=== PATIENT | male | born 1950 | race African-American/Black ===

== ENCOUNTER 2016-11-08 03:16 | Emergency (ER) | payer MEDICAID ==
[~2016-11-08] VITALS: Ht 180.3 cm; Wt 72.6 kg
[~2016-11-08 03:16] MED LIST: ACHD5005 PO; AGM875T PO; ALBU8.5H2 IH; ALPR.5T PO; ALPR1TAB7 PO; CEPH-507 PO; CHOL10003 PO; CYCL10TA9 PO; DOXY100T19 PO; GENT3.5O18 OU; HYDR-3714 PO; LISI5TAB PO; MULT1CAP27 PO; MUPI15CR11 TP; POLY119P PO; PRD20T PO; TRAM50TA2 PO; ZOLP10TA5 PO; [UNRECOGNIZED DRUG - CODE] PO
[2016-11-08 04:09] LABS: BASOPHILS # (AUTO) 0.1 10^3/uL (0.0-0.1); BASOPHILS % (AUTO) 1 % (0-10); EOSINOPHILS # (AUTO) 0.4 10^3/uL (0.0-0.3); EOSINOPHILS % (AUTO) 6 % (0-10); LYMPHOCYTES # (AUTO) 2.9 X 10^3 (1.0-4.0); LYMPHOCYTES % (AUTO) 47 % (12-44); MEAN CORPUSCULAR HEMOGLOBIN 34 PG (25-34); MEAN CORPUSCULAR HGB CONC 35 G/DL (32-36); MEAN CORPUSCULAR VOLUME 97 FL (80-99); MEAN PLATELET VOLUME 9.7 FL (7.4-10.4); MONOCYTES # (AUTO) 0.7 X 10^3 (0.0-1.0); MONOCYTES % (AUTO) 12 % (0-12); NEUTROPHILS # (AUTO) 2.1 X 10^3 (1.8-7.8); NEUTROPHILS % (AUTO) 35 % (42-75); PLATELET COUNT 171 10^3/uL (130-400); RED BLOOD COUNT 4.12 10^6/uL (4.35-5.85); RED CELL DISTRIBUTION WIDTH 13.3 % (10.0-14.5); WHITE BLOOD COUNT 6.2 10^3/uL (4.3-11.0)
[2016-11-08 04:33] LABS: ALANINE AMINOTRANSFERASE 156 U/L (0-55); ALBUMIN 3.5 G/DL (3.2-4.5); ANION GAP 10 MMOL/L (5-14); ASPARTATE AMINO TRANSFERASE 165 U/L (5-34); BLOOD UREA NITROGEN 11 MG/DL (7-18); BUN/CREATININE RATIO 12; CALCIUM 8.8 MG/DL (8.5-10.1); CARBON DIOXIDE 25 MMOL/L (21-32); CHLORIDE 107 MMOL/L (98-107); CREATININE SERUM 0.93 MG/DL (0.60-1.30); GFR ESTIMATED > 60; GLUCOSE 107 MG/DL (70-105); MAGNESIUM 2.2 MG/DL (1.8-2.4); POTASSIUM 3.1 MMOL/L (3.6-5.0); SODIUM 142 MMOL/L (135-145)
[2016-11-08 04:38] LABS: ALCOHOL < 10 MG/DL (<10)
[2016-11-08 05:06] LABS: KETONES,URINE NEGATIVE (NEGATIVE); LEUKOCYTE ESTERASE ,URINE 1+ (NEGATIVE); NITRITE,URINE NEGATIVE (NEGATIVE); PH,URINE 5 (5-9); PROTEIN,URINE 2+ (NEGATIVE); UROBILINOGEN,URINE 4 MG/DL (NORMAL)
[2016-11-08 05:16] LABS: BILIRUBIN,URINE 1+ (NEGATIVE)
[2016-11-08 05:17] LABS: WBC,URINE RARE /HPF
--- NOTE | 2016-11-08 05:32 | ED General ---
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, #9 ( Reported) Alprazolam 1 Mg Tablet, 1 TAB PO TID, #90 (Reported) Cholecalciferol 1,000 Unit Tablet, 1,000 UNIT PO DAILY, (Reported) Multivitamins 1 Each Capsule, 1 TAB PO DAILY, (Reported) Mupirocin Calcium 15 Gm Cream..g., 15 GM TP BID, #1 Prescribed by: HEBERT DYER on 10/09/15 1039 [place]/Paritap/Riton/Dasabuvir 1 Each Tab.ds.pk, 1 EACH PO UD, (Reported) Past Ylvvmak-Zgjbeg-Qljzyt Hx Patient Social History Alcohol Use: Denies Use Recreational Drug Use: No Smoking Status: Never a Smoker 2nd Hand Smoke Exposure: No Recent Foreign Travel: No Contact w/Someone Who Travel: No Recent Infectious Disease Expo: No Recent Hopitalizations: No Immunizations Up To Date Tetanus Booster (TDap): Unknown Seasonal Allergies Seasonal Allergies: No Surgeries HX Surgeries: Yes (cystoscopy) Surgeries: Abdominal Respiratory Hx Respiratory Disorders: Yes Respiratory Disorders: Asthma, Sleep Apnea, COPD Cardiovascular Hx Cardiac Disorders: Yes Cardiac Disorders: Hypertension Neurological Hx Neurological Disorders: Yes Neurological Disorders: Concussion, Seizure Disorder, Traumatic Brain Injury Reproductive System Hx Reproductive Disorders: No Sexually Transmitted Disease: No HIV/AIDS: No Genitourinary Hx Genitourinary Disorders: Yes (benign renal cyst) Genitourinary Disorders: Kidney Stones Gastrointestinal Hx Gastrointestinal Disorders: Yes (Hep C) Gastrointestinal Disorders: Hepatitis Musculoskeletal Hx Musculoskeletal Disorders: Yes (Injured back 1969) Musculoskeletal Disorders: Degenerate Disk Disease, Chronic Back Pain Endocrine Hx Endocrine Disorders: No HEENT HX ENT Disorders: No Cancer Hx Cancer: No Psychosocial Hx Psychiatric Problems: Yes Behavioral Health Disorders: Anxiety, PTSD, Depression Integumentary HX Skin/Integumentary Disorder: No Blood Transfusions Hx Blood Disorders: No Family Medical History Significant Family History: No Pertinent Family Hx Physical Exam Vital Signs Vital Sign - Last 12Hours 11/08/16 03:20 Temp 96.0 Pulse 92 Resp 18 B/P (MAP) 133/103 Pulse Ox 97 O2 Delivery Room Air Capillary Refill : Less Than 3 Seconds Progress/Results/Core Measures Results/Orders Lab Results Laboratory Tests Test 11/08/16 03:45 11/08/16 05:00 Range/Units White Blood Count 6.2 4.3-11.0 10^3/uL Red Blood Count 4.12 L 4.35-5.85 10^6/uL Hemoglobin 13.8 13.3-17.7 G/DL Hematocrit 40 40-54 % Mean Corpuscular Volume 97 80-99 FL Mean Corpuscular Hemoglobin 34 25-34 PG Mean Corpuscular Hemoglobin Concent 35 32-36 G/DL Red Cell Distribution Width 13.3 10.0-14.5 % Platelet Count 171 130-400 10^3/uL Mean Platelet Volume 9.7 7.4-10.4 FL Neutrophils (%) (Auto) 35 L 42-75 % Lymphocytes (%) (Auto) 47 H 12-44 % Monocytes (%) (Auto) 12 0-12 % Eosinophils (%) (Auto) 6 0-10 % Basophils (%) (Auto) 1 0-10 % Neutrophils # (Auto) 2.1 1.8-7.8 X 10^3 Lymphocytes # (Auto) 2.9 1.0-4.0 X 10^3 Monocytes # (Auto) 0.7 0.0-1.0 X 10^3 Eosinophils # (Auto) 0.4 H 0.0-0.3 10^3/uL Basophils # (Auto) 0.1 0.0-0.1 10^3/uL Sodium Level 142 135-145 MMOL/L Potassium Level 3.1 L 3.6-5.0 MMOL/L Chloride Level 107 98-107 MMOL/L Carbon Dioxide Level 25 21-32 MMOL/L Anion Gap 10 5-14 MMOL/L Blood Urea Nitrogen 11 7-18 MG/DL Creatinine 0.93 0.60-1.30 MG/DL Estimat Glomerular Filtration Rate > 60 BUN/Creatinine Ratio 12 Glucose Level 107 H 70-105 MG/DL Calcium Level 8.8 8.5-10.1 MG/DL Magnesium Level 2.2 1.8-2.4 MG/DL Total Bilirubin 1.0 0.1-1.0 MG/DL Aspartate Amino Transf (AST/SGOT) 165 H 5-34 U/L Alanine Aminotransferase (ALT/SGPT) 156 H 0-55 U/L Alkaline Phosphatase 148 H 40-136 U/L Total Protein 7.0 6.4-8.2 G/DL Albumin 3.5 3.2-4.5 G/DL TSH Hunt Testing 0.91 0.35-4.94 UIU/ML Serum Alcohol < 10 <10 MG/DL Urine Color YELLOW Urine Clarity CLEAR Urine pH 5 5-9 Urine Specific [place] 1.030 H 1.016-1.022 Urine Protein 2+ H NEGATIVE Urine Glucose (UA) NEGATIVE NEGATIVE Urine Ketones NEGATIVE NEGATIVE Urine Nitrite NEGATIVE NEGATIVE Urine Bilirubin 1+ H NEGATIVE Urine Urobilinogen 4 H NORMAL MG/DL Urine Leukocyte Esterase 1+ H NEGATIVE Urine RBC (Auto) 2+ H NEGATIVE Urine RBC 0-2 /HPF Urine WBC RARE /HPF Urine Squamous Epithelial Cells 2-5 /HPF Urine Crystals NONE /LPF Urine Bacteria NEGATIVE /HPF Urine Casts NONE /LPF Urine Mucus LARGE H /LPF Urine Culture Indicated NO Urine Opiates Screen NEGATIVE NEGATIVE Urine Oxycodone Screen NEGATIVE NEGATIVE Urine Methadone Screen NEGATIVE NEGATIVE Urine Propoxyphene Screen NEGATIVE NEGATIVE Urine Barbiturates Screen NEGATIVE NEGATIVE Ur Tricyclic Antidepressants Screen NEGATIVE NEGATIVE Urine Phencyclidine Screen NEGATIVE NEGATIVE Urine Amphetamines Screen POSITIVE H NEGATIVE Urine Methamphetamines Screen POSITIVE H NEGATIVE Urine Benzodiazepines Screen NEGATIVE NEGATIVE Urine Cocaine Screen NEGATIVE NEGATIVE Urine Cannabinoids Screen POSITIVE H NEGATIVE My Orders Orders - ANTOINE ZHANG DO Alcohol (11/08/16 03:33) Cbc With Automated Diff (11/08/16 03:33) Comprehensive Metabolic Panel (11/08/16 03:33) Drug Screen Stat (Urine) (11/08/16 03:33) Magnesium (11/08/16 03:33) Thyroid Analyzer (11/08/16 03:33) Ua Culture If Indicated (11/08/16 03:33) Vital Signs/I&O Vital Sign - Last 12Hours 11/08/16 03:20 Temp 96.0 Pulse 92 Resp 18 B/P (MAP) 133/103 Pulse Ox 97 O2 Delivery Room Air Blood Pressure Mean: 113 Departure Impression Impression: Primary Impression: Methamphetamine abuse Additional Impressions: Tactile hallucination Delusions of parasitosis Disposition: HOME, SELF-CARE Condition: Stable Departure-Patient Inst. Referrals: NO,LOCAL PHYSICIAN (PCP) Primary Care Physician TOÑA ZEPEDA Patient Instructions: Drug Abuse and Drug Addiction (DC), Polysubstance Abuse ( DC) Add. Discharge Instructions: FOLLOW UP WITH [facility] All discharge instructions reviewed with patient and/or family. Voiced understanding. ANTOINE ZHANG DO Nov 08, 2016 05:32
[2016-11-08 05:38] VITALS: BP 127/81
[2016-11-08] MEDS ORDERED: SODIUM BICARB 8.4% 50 MEQ/50 ML (ABBOTT) SYR IV ONE (05:45)
== END 2016-11-08 05:38 | disposition home or self-care (01) ==
LOC: EDUNIT# 03:16 → ER 03:18
DX: F15.151 Other stimulant abuse with stimulant-induced psychotic disorder with hallucinations (principal); F12.90 Cannabis use, unspecified, uncomplicated; B18.2 Chronic viral hepatitis C
CPT/HCPCS: 36415; 80053; 80306; 80320; 81000; 83735; 84443; 85025; 99283

== ENCOUNTER 2017-03-01 15:03 | Emergency (ER) | payer MEDICAID ==
[~2017-03-01] VITALS: Ht 180.3 cm; Wt 72.6 kg
--- OUTSIDE RECORDS SUMMARY | 2017-03-01 15:10 | XMS REPORT | Clinical Summary ---
Author Author [facility] Organization [facility] Address Unknown Phone Unavailable Care Team Providers Care Retail Gift Card Merchandising Name Role Phone PCP Unavailable Source Comments Some departments are not documenting in the electronic medical record. If you do not see the information that you expected, contact Release of Information in the Health Information Management department at [phone] for further assistance in locating additional records.[facility] Allergies Active Allergy Reactions Severity Noted Date Comments Sulfa (Sulfonamide RASH 10/17/2013 Antibiotics) Current Medications Not on file Active Problems Not on file Social History Tobacco Use Types Packs/Day Years Used Date Never Assessed Sex Assigned at Date Recorded Not on file Last Filed Vital Signs Vital Sign Reading Time Taken Blood Pressure 157/94 10/17/2013 5:01 AM CDT Pulse - - Temperature 36.8 C (98.2 F) 10/17/2013 5:01 AM CDT Respiratory Rate - - Oxygen Saturation 99% 10/17/2013 5:01 AM CDT Inhaled Oxygen - - Concentration Weight 74.8 kg (165 lb) 10/17/2013 5:01 AM CDT Height 177.8 cm (5' 10") 10/17/2013 5:01 AM CDT Body Mass Index 23.68 10/17/2013 5:01 AM CDT Plan of Treatment Health Maintenance Due Date Last Done Comments HEPATITIS C SCREENING 1951 PHYSICAL (COMPREHENSIVE) 1958 EXAM PERTUSSIS VACCINE 1962 TETANUS VACCINE 1968 COLORECTAL CANCER 2001 SCREENING SHINGLES VACCINE 2011 PREVNAR/PNEUMOVAX (#1) 2016 INFLUENZA VACCINE 03/09/2017 Results Not on filefrom Last 3 Months
--- NOTE | 2017-03-01 19:07 | ED Integumentary General ---
General Chief Complaint: Bite-Animal/Human/Insect Stated Complaint: SPIDER BITE Nursing Triage Note: PT CO OF POSSIBLE SPIDER BITE BEHIND R POSTERIOR THIGH. SMALL AREA THAT ITCHES AND SOMETIMES STINGS Source: patient Exam Limitations: no limitations History of Present Illness Time seen by provider: 19:07 Initial Comments 66-year-old male patient presents to the emergency department with complaints of a possible spider bite to the right posterior thigh. Patient does complain of itching and pain. Onset 3 days ago. This a.m. complains of scratchy throat. Timing/Duration: constant, other (3 day onset) Location: extremities (right posterior thigh) Possible Cause: other (possible spider right) Modifying Factors: worse with other (worse with scratching and palpation) Associated Symptoms: No blisters, No change in skin texture, No fever, No flushing, No headache, No hives, No malaise, No nasal congestion, No petechiae, No rash, swelling/mass/lumps Allergies and Home Medications Allergies Coded Allergies: acetaminophen (Unverified Adverse Reaction, Mild, GI BLEED, N/V, 10/14/10) Sulfa (Sulfonamide Antibiotics) (Unverified Adverse Reaction, Unknown, GI BLEED, N/V, 04/08/15) aspirin (Unverified Adverse Reaction, Unknown, GI BLEED, N/V, 04/08/15) Home Medications Alprazolam 1 Mg Tablet, 1 TAB PO TID, #90 (Reported) Minocycline HCl 100 Mg Capsule, 100 MG PO BID, #14 Ref 0 Prescribed by: DORA BO on 03/01/171921 Naproxen 500 Mg Tablet, 500 MG PO BID PRN for pain, #20 Ref 0 Prescribed by: DORA BO on 03/01/171921 Prednisone 20 Mg Tab, 40 MG PO DAILY, #6 Ref 0 Prescribed by: DORA BO on 03/01/171927 Constitutional: No chills, No fever, malaise EENTM: see HPI, other ("scratchy throat"), No ear pain, No mouth pain, No nose congestion, No throat swelling Respiratory: No cough, No short of breath, No stridor, No wheezing Cardiovascular: no symptoms reported Gastrointestinal: no symptoms reported Musculoskeletal: no symptoms reported Skin: see HPI Psychiatric/Neurological: No Symptoms Reported All Other Systems Reviewed Negative Unless Noted: Yes (Negative excepted noted.) Past Jvuntww-Cdfknp-Hbdqib Hx Patient Social History Alcohol Use: Denies Use Recreational Drug Use: No Smoking Status: Current Everyday Smoker Type Used: Cigarettes 2nd Hand Smoke Exposure: No Recent Foreign Travel: No Contact w/Someone Who Travel: No Recent Infectious Disease Expo: No Recent Hopitalizations: No Physical Abuse: No Sexual Abuse: No Immunizations Up To Date Tetanus Booster (TDap): Unknown Seasonal Allergies Seasonal Allergies: No Surgeries History of Surgeries: Yes (cystoscopy) Surgeries: Abdominal, Bladder Surgery Respiratory History of Respiratory Disorde: Yes Respiratory Disorders: Asthma, Sleep Apnea, COPD Cardiovascular History of Cardiac Disorders: Yes Cardiac Disorders: Hypertension Neurological History of Neurological Disord: Yes Neurological Disorders: Concussion, Seizure Disorder, Traumatic Brain Injury Reproductive System Hx Reproductive Disorders: No Sexually Transmitted Disease: No HIV/AIDS: No Genitourinary History of Genitourinary Disor: Yes Genitourinary Disorders: Kidney Stones Gastrointestinal History of Gastrointestinal Di: Yes (Hep C-NO TREATMENT) Gastrointestinal Disorders: Hepatitis Musculoskeletal History of Musculoskeletal Dis: Yes (Injured back 1968) Musculoskeletal Disorders: Degenerate Disk Disease, Chronic Back Pain Endocrine History of Endocrine Disorders: No HEENT History of HEENT Disorders: No Cancer History of Cancer: No Psychosocial History of Psychiatric Problem: Yes Behavioral Health Disorders: Anxiety, PTSD, Depression Suicide Risk Score: 0 Integumentary History of Skin or Integumenta: No Blood Transfusions History of Blood Disorders: No Reviewed Nursing Assessment Reviewed/Agree w Nursing PMH: Yes Family Medical History Significant Family History: No Pertinent Family Hx Physical Exam Vital Signs Vital Sign - Last 12Hours 03/01/17 03/01/17 18:40 19:55 Temp 97.5 Pulse 117 Resp 18 B/P (MAP) 160/100 Pulse Ox 99 O2 Delivery Room Air Capillary Refill : Less Than 3 Seconds General Appearance: WD/WN, no apparent distress HEENT: PERRL/EOMI, normal ENT inspection, TMs normal, pharyngeal erythema, No tonsillar exudate Neck: non-tender, full range of motion, supple, lymphadenopathy (R), lymphadenopathy (L) Cardiovascular: normal peripheral pulses, regular rate, rhythm, no edema, no murmur Respiratory: lungs clear, normal breath sounds, no respiratory distress, no accessory muscle use Gastrointestinal: normal bowel sounds, non tender, soft, no organomegaly Extremities: normal range of motion, no pedal edema, no calf tenderness, normal capillary refill, other (2 x 2 centimeter area of erythema with central puncture site. Tenderness palpation noted. No drainage, fluctuance, or induration noted.) Neurologic/Psychiatric: no motor/sensory deficits, alert, normal mood/affect, oriented x 3 Skin: normal color, warm/dry, other (2 x 2 centimeter area of erythema with central puncture site. Tenderness palpation noted. No drainage, fluctuance, or induration noted.) Progress/Results/Core Measures Results/Orders My Orders Orders - DORA BO Rx-Doxycycline Tablet (Rx-Vibramycin Tab (03/01/17 19:24) Prednisone Tablet (Deltasone Tablet) (03/01/17 19:30) Tramadol Tablet (Ultram Tablet) (03/01/17 19:30) Vital Signs/I&O Vital Sign - Last 12Hours 03/01/17 03/01/17 18:40 19:55 Temp 97.5 Pulse 117 112 Resp 18 14 B/P (MAP) 160/100 Pulse Ox 99 98 O2 Delivery Room Air Blood Pressure Mean: 120 Departure Communication (Admissions) Progress Notes Patient seen and evaluated. Plan for discharge to home with oral minocycline, prednisone, and naprosyn prescriptions. Impression Impression: Primary Impression: Spider bite wound Qualified Codes: T63.301A - Toxic effect of unspecified spider venom, accidental (unintentional), initial encounter Additional Impression: Acute viral pharyngitis Disposition: 01 HOME, SELF-CARE Condition: Improved Departure-Patient Inst. Decision time for Depature: 19:19 Referrals: NO,LOCAL PHYSICIAN (PCP/Family) Primary Care Physician Patient Instructions: Spider Bites, Viral Pharyngitis (DC) Add. Discharge Instructions: All discharge instructions reviewed with patient and/or family. Voiced understanding. Medications as instructed. Tylenol extra strength over-the- counter as directed for pain. Over the counter throat lozenges and sprays for throat pain. Gargle with warm salt water as needed for throat pain. Elevate the right lower extremity on pillows as needed. Shower with antibacterial soap. Follow-up with your family practitioner for recheck early this week. Return to the emergency department for worsened symptoms or any other concerns. Scripts Prednisone (Prednisone) 20 Mg Tab 40 MG PO DAILY, #6 TAB 0 Refills Prov: DORA BO 03/01/17 Naproxen (Naprosyn) 500 Mg Tablet 500 MG PO BID Y for pain, #20 TAB 0 Refills Prov: DORA BO 03/01/17 Minocycline HCl (Minocycline HCl) 100 Mg Capsule 100 MG PO BID, #14 CAP 0 Refills Prov: DORA BO 03/01/17 DORA BO Mar 01, 2017 19:07
[2017-03-01] MEDS ORDERED: MINO100C2 PO (19:22)
[2017-03-01] MEDS ORDERED: NAPR500T PO (19:22)
[2017-03-01] MEDS ORDERED: RX-DOXYCYCLINE 100 MG (VIBRAMYCIN) TAB PPK#2 PO STA (19:24)
[2017-03-01] MEDS ORDERED: PRD20T PO (19:28)
[2017-03-01] MEDS ORDERED: predniSONE 20 MG TAB PO ONE (19:30)
[2017-03-01 19:55] VITALS: BP 145/100
== END 2017-03-01 20:03 | disposition home or self-care (01) ==
LOC: EDUNIT# 15:03 → ER 15:05
DX: S71.101A Unspecified open wound, right thigh, initial encounter (principal); J02.9 Acute pharyngitis, unspecified; J44.9 Chronic obstructive pulmonary disease, unspecified; I10 Essential (primary) hypertension; G40.909 Epilepsy, unspecified, not intractable, without status epilepticus; G47.30 Sleep apnea, unspecified; B19.20 Unspecified viral hepatitis C without hepatic coma; F41.9 Anxiety disorder, unspecified; F32.9 Major depressive disorder, single episode, unspecified; F43.10 Post-traumatic stress disorder, unspecified; F17.210 Nicotine dependence, cigarettes, uncomplicated; Z87.820 Personal history of traumatic brain injury; Z87.442 Personal history of urinary calculi; W57.XXXA Bitten or stung by nonvenomous insect and other nonvenomous arthropods, initial encounter
CPT/HCPCS: 99283

== ENCOUNTER 2017-10-02 16:05 | Emergency (ER) | payer MEDICAID ==
[~2017-10-02] VITALS: Ht 180.3 cm; Wt 74.8 kg
[~2017-10-02 16:05] MED LIST changes: +AMOX-358 PO; +DOXY100T2 PO; +MINO100C2 PO; +NAPR-1071 PO
[2017-10-02 16:48] VITALS: BP 156/104
== END 2017-10-02 16:48 | disposition home or self-care (01) ==
LOC: EDUNIT# 16:05 → ER 16:05
DX: S91.302D Unspecified open wound, left foot, subsequent encounter (principal); S91.301D Unspecified open wound, right foot, subsequent encounter; X58.XXXD Exposure to other specified factors, subsequent encounter

== ENCOUNTER 2017-12-29 16:48 | Emergency (ER) | payer MEDICAID ==
[~2017-12-29] VITALS: Ht 177.8 cm; Wt 74.8 kg
--- OUTSIDE RECORDS SUMMARY | 2017-12-29 16:53 | XMS REPORT | Clinical Summary ---
Author Author [facility] Organization [facility] Address Unknown Phone Unavailable Care Team Providers Care Non Acoustic Operator Name Role Phone No Pcp, Na PCP Unavailable Source Comments Some departments are not documenting in the electronic medical record. If you do not see the information that you expected, contact Release of Information in the Health Information Management department at [phone] for further assistance in locating additional records.[facility] Allergies Active Allergy Reactions Severity Noted Date [...] VACCINE 1968 COLORECTAL CANCER 2001 SCREENING SHINGLES RECOMBINANT 2001 VACCINE (1 of 2) PNEUMONIA (PCV13/PPSV23) 2016 VACCINES (1 of 2 - PCV13) INFLUENZA VACCINE 03/09/2018 Results Not on filefrom Last 3 Months
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
[2017-12-29] MEDS ORDERED: ALPR0.254 PO (17:09)
[2017-12-29] MEDS ORDERED: PRD20T PO (17:10)
[2017-12-29] MEDS ORDERED: CYCL10TA9 PO (17:10)
[2017-12-29] MEDS ORDERED: TRAM50TA2 PO (17:10)
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
[2017-12-29 17:15] VITALS: BP 123/91
== END 2017-12-29 17:14 | disposition home or self-care (01) ==
LOC: EDUNIT# 16:48 → ER 16:49
DX: S16.1XXA Strain of muscle, fascia and tendon at neck level, initial encounter (principal); M70.71 Other bursitis of hip, right hip; M70.72 Other bursitis of hip, left hip; J44.9 Chronic obstructive pulmonary disease, unspecified; F41.9 Anxiety disorder, unspecified; F43.10 Post-traumatic stress disorder, unspecified; F32.9 Major depressive disorder, single episode, unspecified; G47.30 Sleep apnea, unspecified; I10 Essential (primary) hypertension; G40.909 Epilepsy, unspecified, not intractable, without status epilepticus; Z87.820 Personal history of traumatic brain injury; Z87.442 Personal history of urinary calculi; Z88.2 Allergy status to sulfonamides; Z88.6 Allergy status to analgesic agent; Z88.8 Allergy status to other drugs, medicaments and biological substances; Z77.22 Contact with and (suspected) exposure to environmental tobacco smoke (acute) (chronic); X58.XXXA Exposure to other specified factors, initial encounter
CPT/HCPCS: 99283

== ENCOUNTER 2018-10-14 18:34 | Emergency (ER) | payer MEDICAID ==
[~2018-10-14] VITALS: Ht 180.3 cm; Wt 72.6 kg
[~2018-10-14 18:34] MED LIST changes: +ALPR0.254 PO
[2018-10-14] MEDS ORDERED: LACTATED RINGERS 1,000 ML IV ONE (18:42)
[2018-10-14] MEDS ORDERED: KETOROLAC 30 MG/ML VIAL IVP STA (18:42)
[2018-10-14] MEDS ORDERED: ONDANSETRON 4 MG/2 ML (SDV) Z0FRAN IVP ONE (18:45)
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
[2018-10-14 19:26] LABS: BILIRUBIN,URINE NEGATIVE (NEGATIVE); CLARITY,URINE CLEAR; COLOR,URINE YELLOW; GLUCOSE, URINE (UA) NEGATIVE (NEGATIVE); KETONES,URINE NEGATIVE (NEGATIVE); LEUKOCYTE ESTERASE ,URINE 1+ (NEGATIVE); NITRITE,URINE NEGATIVE (NEGATIVE); PH,URINE 6 (5-9); PROTEIN,URINE NEGATIVE (NEGATIVE); UROBILINOGEN,URINE NORMAL (NORMAL)
--- NOTE | 2018-10-14 19:27 | Diagnostic Imaging Report ---
INDICATION: Right flank pain Supine and upright views of the abdomen and pelvis are obtained with single view of the chest. Lungs are clear, bilaterally. Heart size and pulmonary vascularity are within normal limits. There is moderate amount of stool throughout the right colon. This does limit evaluation of urinary tract calcification. No definite pathologic calcification is identified. IMPRESSION: Findings are compatible with constipation. Otherwise no acute abnormality is detected. Dictated by: Dictated on workstation # [id number]
[2018-10-14 19:34] LABS: BACTERIA,URINE NEGATIVE /HPF; RBC,URINE RARE /HPF; WBC,URINE 0-2 /HPF
[2018-10-14 19:41] LABS: AMPHETAMINE SCREEN, URINE NEGATIVE (NEGATIVE); BARBITURATE SCREEN URINE NEGATIVE (NEGATIVE); BENZODIAZEPINES SCREEN URINE NEGATIVE (NEGATIVE); CANNABINOID SCREEN, URINE POSITIVE (NEGATIVE); COCAINE SCREEN URINE NEGATIVE (NEGATIVE); METHADONE STAT NEGATIVE (NEGATIVE); METHAMPHETAMINE SCREEN URINE S NEGATIVE (NEGATIVE); OPIATE SCREEN URINE NEGATIVE (NEGATIVE); OXYCODONE STAT NEGATIVE (NEGATIVE); PROPOXYPHENE STAT NEGATIVE (NEGATIVE); TRICYCLIC ANTIDEPRESSANTS SCRE NEGATIVE (NEGATIVE)
--- NOTE | 2018-10-14 19:45 | Diagnostic Imaging Report ---
PROCEDURE: CT urinary tract, rule out kidney stone. TECHNIQUE: Multiple contiguous axial images were obtained through the abdomen and pelvis without the use of intravenous contrast. Auto Exposure Controls were utilized during the CT exam to meet ALARA standards for radiation dose reduction. INDICATION: Back pain and nausea Comparison is made to study of 11/10/2013. Unenhanced images of the liver, pancreas and spleen are unremarkable. Gallbladder is contracted. There is no evidence of adrenal gland abnormality. There is a persistent 2.5 cm cyst in the right kidney. Otherwise, there is no evidence of urinary tract calculus or obstruction. There is no evidence of appendiceal inflammation. There is mild aortoiliac atherosclerotic calcination. The bladder is thickwalled. There is also persistent enlargement of the prostate gland. Note is made of extensive disc bulging at the L4-5 level with associated degenerative facet arthropathy and grade 1 anterolisthesis. This is also associated with ligamentum flavum hypertrophy. There is large amount of stool in the right testis, resides in the right inguinal canal. IMPRESSION: No evidence of acute abnormality in the abdomen or pelvis although there is mural thickening in the bladder which could reflect cystitis. Correlation with urinalysis would be of value. There is also prostatic enlargement and clinical correlation would be of use. There is probable constipation and advanced degenerative disc and facet disease at the L4-5 level. MRI may be of value for assessment. Dictated by: Dictated on workstation # [id number]
[2018-10-14 19:58] LABS: BASOPHILS % (AUTO) 0 % (0-10); EOSINOPHILS # (AUTO) 0.2 10^3/uL (0.0-0.3); EOSINOPHILS % (AUTO) 3 % (0-10); HEMATOCRIT 46 % (40-54); HEMOGLOBIN 15.7 G/DL (13.3-17.7); LYMPHOCYTES # (AUTO) 2.3 X 10^3 (1.0-4.0); LYMPHOCYTES % (AUTO) 47 % (12-44); MEAN CORPUSCULAR HEMOGLOBIN 33 PG (25-34); MEAN CORPUSCULAR HGB CONC 34 G/DL (32-36); MEAN CORPUSCULAR VOLUME 97 FL (80-99); MEAN PLATELET VOLUME 10.1 FL (7.4-10.4); MONOCYTES # (AUTO) 0.7 X 10^3 (0.0-1.0); MONOCYTES % (AUTO) 14 % (0-12); NEUTROPHILS # (AUTO) 1.7 X 10^3 (1.8-7.8); NEUTROPHILS % (AUTO) 35 % (42-75); PLATELET COUNT 146 10^3/uL (130-400); RED CELL DISTRIBUTION WIDTH 14.3 % (10.0-14.5); WHITE BLOOD COUNT 4.8 10^3/uL (4.3-11.0)
[2018-10-14 20:17] LABS: ALANINE AMINOTRANSFERASE 49 U/L (0-55); ALBUMIN 3.5 GM/DL (3.2-4.5); ALKALINE PHOSPHATASE 219 U/L (40-136); AMYLASE 295 U/L (25-125); BILIRUBIN,TOTAL 1.2 MG/DL (0.1-1.0); BUN/CREATININE RATIO 12; CALCIUM 9.2 MG/DL (8.5-10.1); CARBON DIOXIDE 24 MMOL/L (21-32); CHLORIDE 104 MMOL/L (98-107); CREATININE SERUM 0.75 MG/DL (0.60-1.30); GFR ESTIMATED > 60; GLUCOSE 92 MG/DL (70-105); LIPASE 650 U/L (8-78); POTASSIUM 3.9 MMOL/L (3.6-5.0); SODIUM 137 MMOL/L (135-145); TOTAL PROTEIN 7.4 GM/DL (6.4-8.2)
[2018-10-14] MEDS ORDERED: ONDA4TAB11 PO (20:43)
[2018-10-14] MEDS ORDERED: METH4TAB PO (20:43)
[2018-10-14 21:15] VITALS: BP 146/100
== END 2018-10-14 21:15 | disposition home or self-care (01) ==
LOC: EDUNIT# 18:34 → ER 18:35
DX: K59.00 Constipation, unspecified (principal); F19.10 Other psychoactive substance abuse, uncomplicated; K85.90 Acute pancreatitis without necrosis or infection, unspecified; J44.9 Chronic obstructive pulmonary disease, unspecified; G47.30 Sleep apnea, unspecified; G40.909 Epilepsy, unspecified, not intractable, without status epilepticus; F41.9 Anxiety disorder, unspecified; F43.10 Post-traumatic stress disorder, unspecified; F32.9 Major depressive disorder, single episode, unspecified; F12.10 Cannabis abuse, uncomplicated; B19.20 Unspecified viral hepatitis C without hepatic coma; I10 Essential (primary) hypertension; F17.210 Nicotine dependence, cigarettes, uncomplicated; F15.10 Other stimulant abuse, uncomplicated; Z98.890 Other specified postprocedural states; Z91.14 Patient's other noncompliance with medication regimen; Z87.442 Personal history of urinary calculi; Z87.820 Personal history of traumatic brain injury; Z88.2 Allergy status to sulfonamides; Z88.6 Allergy status to analgesic agent; Z88.8 Allergy status to other drugs, medicaments and biological substances; Z79.52 Long term (current) use of systemic steroids
CPT/HCPCS: 36415; 74022; 74176; 80053; 80306; 80320; 81000; 82150; 83690; 85025; 93041; 96361; 96374; 96375

== ENCOUNTER 2019-05-04 17:46 | Emergency (ER) | payer OTHER, MEDICAID ==
[~2019-05-04] VITALS: Ht 180.4 cm; Wt 74.1 kg
[~2019-05-04 17:46] MED LIST changes: +METH4TAB PO; +ONDA4TAB11 PO
--- NOTE | 2019-05-04 18:47 | ED Abdominal Pain ---
General Chief Complaint: Abdominal/GI Problems Stated Complaint: GASTRO ISSUE Nursing Triage Note: Pt amb to triage with c/o possible bowel obstruction. Pt reports to have been sent [place] [facility] for further evaluation d/t abd imaging findings. Pt reports medial abd discomfort associated with nausea that began on this day. Denies fever or chills. Sepsis Screen: No Definite Risk Source of Information: Patient Exam Limitations: No Limitations History of Present Illness Date Seen by Provider: May 04, 2019 Time Seen by Provider: 18:30 Initial Comments 69-year-old male, presents to emergency department after he was evaluated at urgent care, patient reports that he went to the urgent care for concerns of his right second finger hurting since February 2019. Patient reports that while he was there he mentioned to the provider that during his last physical with the [place] [facility] he did not obtain his yearly chest x-ray, so they did obtain a chest x- ray while he was there. The patient was told that they had concerns of a bowel obstruction from his chest x-ray therefore they got some more imaging and obtained an acute abdominal series. Patient was subsequently sent here for concerns for possible bowel obstruction. Patient reports having a bowel movement this morning was having no nausea or vomiting, nontender, and passing flatus today. Timing/Duration: 1/2 Hour Severity/Quality: Mild Location: Generalized Abdomen Radiation: No Radiation Activities at Onset: None Associated Symptoms: Denies Symptoms Allergies and Home Medications Allergies Coded Allergies: acetaminophen (Unverified Adverse Reaction, Mild, GI BLEED, N/V, 10/14/10) Sulfa (Sulfonamide Antibiotics) (Unverified Adverse Reaction, Unknown, GI BLEED, N/V, 04/08/15) aspirin (Unverified Adverse Reaction, Unknown, GI BLEED, N/V, 04/08/15) Home Medications Cyclobenzaprine HCl 10 Mg Tablet, 10 MG PO Q8H PRN for SPASMS Prescribed by: JULIO JOHNSON on 12/29/171709 Methylprednisolone 4 Mg Tab.ds.pk, 4 MG PO UD Prescribed by: ANTOINE ZHANG on 10/14/182042 Ondansetron 4 Mg Tab.rapdis, 4 MG PO Q4H Prescribed by: ANTOINE ZHANG on 10/14/182042 Prednisone 20 Mg Tab, 40 MG PO DAILY Prescribed by: JULIO JOHNSON on 12/29/171709 Tramadol HCl 50 Mg Tablet, 50 MG PO Q6H PRN for PAIN Prescribed by: JULIO JOHNSON on 12/29/171709 Patient Home Medication List Home Medication List Reviewed: Yes Review of Systems Review of Systems Constitutional: no symptoms reported, see HPI EENTM: No Symptoms Reported, See HPI Respiratory: No Symptoms Reported, See HPI Cardiovascular: No Symptoms Reported, See HPI Gastrointestinal: No Symptoms Reported, See HPI Genitourinary: No Symptoms Reported, See HPI Musculoskeletal: no symptoms reported, see HPI Skin: no symptoms reported, see HPI Psychiatric/Neurological: No Symptoms Reported, See HPI Endocrine: No Symptoms Reported, See HPI Hematologic/Lymphatic: No Symptoms Reported, See HPI All Other Systems Reviewed Negative Unless Noted: Yes Past Gppxccb-Cilsbh-Mbpids Hx Past Med/Social Hx: Reviewed Nursing Past Med/Soc Hx Patient Social History Alcohol Use: Denies Use Recreational Drug Use: No Drug of Choice: PT DENIES, BUT HAS TESTED + FOR THC AND METH/AMPHETAMINES Smoking Status: Current Everyday Smoker Type Used: Cigarettes 2nd Hand Smoke Exposure: Yes Recent Foreign Travel: No Contact w/Someone Who Travel: No Recent Infectious Disease Expo: No Recent Hopitalizations: No Immunizations Up To Date Tetanus Booster (TDap): Unknown Seasonal Allergies Seasonal Allergies: No Past Medical History Surgeries: Yes (CYSTOSCOPY) Abdominal, Bladder Surgery Respiratory: Yes Asthma, Sleep Apnea, COPD Currently Using CPAP: Yes Cardiac: Yes (NON-COMPLIANT WITH MEDICATIONS) Hypertension Neurological: Yes (PT UNABLE TO GIVE DETAILS ABOUT SEIZURES) Concussion, Seizure Disorder, Traumatic Brain Injury Reproductive Disorders: Yes (E.D.) Sexually Transmitted Disease: No HIV/AIDS: No Genitourinary: Yes (E.D.) Kidney Stones Gastrointestinal: Yes (HEPATITIS C-NO TREATMENT, Bowel obstruction. ) Hepatitis Musculoskeletal: Yes (Injured back 1968) Degenerate Disk Disease, Chronic Back Pain Endocrine: No HEENT: No Cancer: No Psychosocial: Yes (POLYSUBSTANCE ABUSE) Anxiety, PTSD, Depression Integumentary: No Blood Disorders: No Family Medical History No Pertinent Family Hx Physical Exam Vital Signs Vital Signs - First Documented 05/04/19 17:52 Temp 37.0 Pulse 95 Resp 17 B/P (MAP) 129/83 (98) Pulse Ox 96 O2 Delivery Room Air Capillary Refill : Less Than 3 Seconds Height/Weight/BMI Height: 5'11.00" Weight: 160lbs. 0.0oz. 72.868754ir; 22.00 BMI Method:Stated General Appearance: WD/WN, no apparent distress HEENT: PERRL/EOMI, normal ENT inspection, TMs normal, pharynx normal Neck: non-tender, full range of motion, supple, normal inspection Respiratory: chest non-tender, lungs clear, normal breath sounds, no respiratory distress, no accessory muscle use Cardiovascular: normal peripheral pulses, regular rate, rhythm, no edema, no gallop, no JVD Gastrointestinal: normal bowel sounds (Present in all 4 quad. 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 Reviewed: Reviewed by Me Diagonstic Imaging: Xray Plain Films/CT/US/NM/MRI: abdomen Comments Acute abdominal series was obtained by [facility] reviewed by me no acute processes identified. Reviewed: Reviewed by Me Departure Impression Primary Impression: General medical exam Disposition: HOME, SELF-CARE Condition: Stable Departure-Patient Inst. Decision time for Depature: 18:45 Referrals: NO,LOCAL PHYSICIAN (PCP) Primary Care Physician LADONNA LEES (Family) Primary Care Physician Patient Instructions: No Instuctions Given Add. Discharge Instructions: Routine normal daily activities. All discharge instructions reviewed with patient and/or family. Voiced understanding. IVANA BERGER May 04, 2019 18:47 POS
[2019-05-04 18:57] VITALS: BP 145/90
== END 2019-05-04 18:57 | disposition home or self-care (01) ==
LOC: EDUNIT# 17:46 → ER 17:48
DX: Z03.89 Encounter for observation for other suspected diseases and conditions ruled out (principal); J44.9 Chronic obstructive pulmonary disease, unspecified; I10 Essential (primary) hypertension; G40.909 Epilepsy, unspecified, not intractable, without status epilepticus; F90.9 Attention-deficit hyperactivity disorder, unspecified type; F41.9 Anxiety disorder, unspecified; F32.9 Major depressive disorder, single episode, unspecified; B19.20 Unspecified viral hepatitis C without hepatic coma; F17.210 Nicotine dependence, cigarettes, uncomplicated; Z87.442 Personal history of urinary calculi; Z87.820 Personal history of traumatic brain injury; Z88.6 Allergy status to analgesic agent; Z88.2 Allergy status to sulfonamides; Z79.52 Long term (current) use of systemic steroids
CPT/HCPCS: 99282

== ENCOUNTER 2019-05-11 15:20 | Emergency (ER) | payer MEDICAID, OTHER ==
[~2019-05-11] VITALS: Ht 180 cm; Wt 74.0 kg
[~2019-05-11 15:20] MED LIST changes: -DOXY100T19 PO; +DOXY100T31 PO; -MINO100C2 PO; +MINO100C5 PO; +TRM50T PO
--- NOTE | 2019-05-11 15:57 | ED Integumentary General ---
General Chief Complaint: Skin/Wound Problems Stated Complaint: SPIDER BITE Nursing Triage Note: PT TO FT1, PT STATES HAS POSSIBLE SPIDER BITE ON R FA STATES HAD GOTTEN YESTERDAY, PT HAS VERY SMALL WOUND TO R FA, NO FANG EL NOTED, PT DENIES SEEING SPIDER. AREA WITHOUT SX OF INFECTION. PT ARRIVED PER EMS, EMS STAFF STATE PT WALKED 1 BLOCK TO [facility] TO WAIT FOR EMS Source: patient Exam Limitations: no limitations History of Present Illness Date Seen by Provider: May 11, 2019 Time Seen by Provider: 15:45 Initial Comments Patient presents with concerns for a possible spider bite on right forearm. Reports that he noticed the area yesterday. Has a small abrasion in the area and he thought it might be from a spider. Patient denies any other symptoms. Patient is nodding off frequently Lyme titer visit with family reports that he feels fine that has gone doesn't want anything else done. Reports that he just had a busy couple days and he has very good news and is just kind of tired from being busy Allergies and Home Medications Allergies Coded Allergies: acetaminophen (Unverified Adverse Reaction, Mild, GI BLEED, N/V, 10/14/10) Sulfa (Sulfonamide Antibiotics) (Unverified Adverse Reaction, Unknown, GI BLEED, N/V, 04/08/15) aspirin (Unverified Adverse Reaction, Unknown, GI BLEED, N/V, 04/08/15) Home Medications Cyclobenzaprine HCl 10 Mg Tablet, 10 MG PO Q8H PRN for SPASMS Prescribed by: JULIO JOHNSON on 12/29/171709 Methylprednisolone 4 Mg Tab.ds.pk, 4 MG PO UD Prescribed by: ANTOINE ZHANG on 10/14/182042 Ondansetron 4 Mg Tab.rapdis, 4 MG PO Q4H Prescribed by: ANTOINE ZHANG on 10/14/182042 Prednisone 20 Mg Tab, 40 MG PO DAILY Prescribed by: JULIO JOHNSON on 12/29/171709 Tramadol HCl 50 Mg Tablet, 50 MG PO Q6H PRN for PAIN Prescribed by: JULIO JOHNSON on 12/29/171709 Patient Home Medication List Home Medication List Reviewed: Yes Review of Systems Review of Systems Constitutional: No chills, No fever Respiratory: no symptoms reported Cardiovascular: no symptoms reported Gastrointestinal: no symptoms reported Musculoskeletal: no symptoms reported Skin: see HPI Past Vqquzgn-Ynuxom-Rolyfq Hx Past Med/Social Hx: Reviewed Nursing Past Med/Soc Hx Patient Social History Alcohol Use: Denies Use Recreational Drug Use: No Drug of Choice: PT DENIES, BUT HAS TESTED + FOR THC AND METH/AMPHETAMINES Smoking Status: Current Everyday Smoker Type Used: Cigarettes 2nd Hand Smoke Exposure: Yes Recent Foreign Travel: No Contact w/Someone Who Travel: No Recent Infectious Disease Expo: No Recent Hopitalizations: No Physical Abuse: No Sexual Abuse: No Immunizations Up To Date Tetanus Booster (TDap): Less than 5yrs Seasonal Allergies Seasonal Allergies: No Past Medical History Surgeries: Yes (CYSTOSCOPY) Abdominal, Bladder Surgery Respiratory: Yes Asthma, Sleep Apnea, COPD Currently Using CPAP: Yes Cardiac: Yes (NON-COMPLIANT WITH MEDICATIONS) Hypertension Neurological: Yes (PT UNABLE TO GIVE DETAILS ABOUT SEIZURES) Concussion, Seizure Disorder, Traumatic Brain Injury Reproductive Disorders: Yes (E.D.) Sexually Transmitted Disease: No HIV/AIDS: No Genitourinary: Yes (E.D.) Kidney Stones Gastrointestinal: Yes (HEPATITIS C-NO TREATMENT, Bowel obstruction. ) Hepatitis Musculoskeletal: Yes (Injured back 1968) Degenerate Disk Disease, Chronic Back Pain Endocrine: No HEENT: No Cancer: No Psychosocial: Yes (POLYSUBSTANCE ABUSE) Anxiety, PTSD, Depression Integumentary: No Blood Disorders: No Family Medical History No Pertinent Family Hx Physical Exam Vital Signs Vital Signs - First Documented 05/11/19 15:22 Temp 39.8 Pulse 96 Resp 18 B/P (MAP) 140/89 (106) Pulse Ox 99 Capillary Refill : Less Than 3 Seconds General Appearance: no apparent distress, other (fatigued) HEENT: normal ENT inspection Neck: full range of motion Cardiovascular: normal peripheral pulses, regular rate, rhythm Respiratory: lungs clear, normal breath sounds Back: no CVA tenderness Extremities: non-tender Neurologic/Psychiatric: normal mood/affect, oriented x 3 Skin: other (very small abrasion on right forearm, no infection noted) Progress/Results/Core Measures Results/Orders Vital Signs/I&O 05/11/19 15:22 Temp 39.8 Pulse 96 Resp 18 B/P (MAP) 140/89 (106) Pulse Ox 99 Blood Pressure Mean: 106 POS Progress Progress Note : Time: 15:55 Progress Note Patient was very fatigued acting and fell asleep I was talking to him. I repeatedly asked him if there was any thing else going on that he wanted evaluated besides the right forearm abrasion. He denied any further issues, repeatedly stated he feels fine just tired from a busy few days. Based on patient's not wanting any further evaluation, he will be discharged. Departure Impression Primary Impression: Abrasion of right forearm, initial encounter Disposition: HOME, SELF-CARE Condition: Stable Departure-Patient Inst. Referrals: NO,LOCAL PHYSICIAN (PCP) Primary Care Physician LADONNA LEES (Family) Primary Care Physician Patient Instructions: Skin Abrasions, Wound Care (DC) Add. Discharge Instructions: The Emergency Department focuses on treating and ruling out life-threatening diseases. Whenever possible, a diagnosis is given. However most patient's are given an impression based on the history, physical exam, and workup during their brief time in the ER. Information about probable diagnosis and other educational material has been provided. Please take the time to read and understand this information. It is very important that he follow up with a doctor as discussed during her visit today. Failure to adhere to your follow-up instructions may result in severe disability, injury or so please make sure to keep your appointments. Please keep in mind the emergency department is not designed to be your primary care or "family doctor" and not urgent issues are best evaluated by an outpatient physician All discharge instructions reviewed with patient and/or family. Voiced understanding. GABRIEL RIVAS DO May 11, 2019 15:57 POS
[2019-05-11 16:13] VITALS: BP 140/89
== END 2019-05-11 16:13 | disposition home or self-care (01) ==
LOC: EDUNIT# 15:20 → ER 15:21
DX: S50.811A Abrasion of right forearm, initial encounter (principal); J44.9 Chronic obstructive pulmonary disease, unspecified; I10 Essential (primary) hypertension; G47.30 Sleep apnea, unspecified; G40.909 Epilepsy, unspecified, not intractable, without status epilepticus; B19.20 Unspecified viral hepatitis C without hepatic coma; F32.9 Major depressive disorder, single episode, unspecified; F43.10 Post-traumatic stress disorder, unspecified; F41.9 Anxiety disorder, unspecified; F17.210 Nicotine dependence, cigarettes, uncomplicated; Z99.89 Dependence on other enabling machines and devices; Z87.442 Personal history of urinary calculi; Z87.820 Personal history of traumatic brain injury; Z88.6 Allergy status to analgesic agent; Z88.2 Allergy status to sulfonamides; Z79.52 Long term (current) use of systemic steroids; X58.XXXA Exposure to other specified factors, initial encounter
CPT/HCPCS: 99283

== ENCOUNTER 2019-06-01 20:01 | Emergency (ER) | payer MEDICAID ==
[~2019-06-01 20:01] MED LIST changes: +DOXY100T19 PO; -DOXY100T31 PO; +MINO100C2 PO; -MINO100C5 PO; -TRM50T PO
--- NOTE | 2019-06-01 20:16 | ED General ---
General Chief Complaint: General Problems/Pain Stated Complaint: CONFUSION Source of Information: Patient, EMS Exam Limitations: No Limitations History of Present Illness Date Seen by Provider: Jun 01, 2019 Time Seen by Provider: 20:11 Initial Comments to ER per EMS from room 421 at the [facility]. Two of his female visitors at the [facility] called EMS with reports that he had shallow breathing. Upon EMS arrival he was sitting up in bed alert but disoriented and believes that at that time he was at [facility]. The 2 female visitors stated to know him well to EMS allegedly, however they had communicated with [employer] mostly via text messaging and had only met him in person for 2 hours. Upon arrival to ER he is alert and oriented to person place and time, unsure why his friends at the hotel called EMS. He has no complaints of a like to sign out AGAINST MEDICAL ADVICE. Timing/Duration: 1/2 Hour Severity: Mild Associated Systoms: Denies Symptoms Allergies and Home Medications Allergies Coded Allergies: acetaminophen (Unverified Adverse Reaction, Mild, GI BLEED, N/V, 10/14/10) Sulfa (Sulfonamide Antibiotics) (Unverified Adverse Reaction, Unknown, GI BLEED, N/V, 04/08/15) aspirin (Unverified Adverse Reaction, Unknown, GI BLEED, N/V, 04/08/15) Home Medications Cyclobenzaprine HCl 10 Mg Tablet, 10 MG PO Q8H PRN for SPASMS Prescribed by: JULIO JOHNSON on 12/29/171709 Methylprednisolone 4 Mg Tab.ds.pk, 4 MG PO UD Prescribed by: ANTOINE ZHANG on 10/14/182042 Ondansetron 4 Mg Tab.rapdis, 4 MG PO Q4H Prescribed by: ANTOINE ZHANG on 10/14/182042 Prednisone 20 Mg Tab, 40 MG PO DAILY Prescribed by: JULIO JOHNSON on 12/29/171709 Tramadol HCl 50 Mg Tablet, 50 MG PO Q6H PRN for PAIN Prescribed by: JULIO JOHNSON on 12/29/171709 Patient Home Medication List Home Medication List Reviewed: Yes Review of Systems Review of Systems Constitutional: see HPI EENTM: see HPI Respiratory: no symptoms reported Cardiovascular: no symptoms reported Genitourinary: no symptoms reported Musculoskeletal: no symptoms reported Skin: no symptoms reported Psychiatric/Neurological: No Symptoms Reported Hematologic/Lymphatic: No Symptoms Reported Immunological/Allergic: no symptoms reported Past Ageanff-Xslrko-Qoeyit Hx Patient Social History Drug of Choice: PT DENIES, BUT HAS TESTED + FOR THC AND METH/AMPHETAMINES Type Used: Cigarettes 2nd Hand Smoke Exposure: Yes Recent Foreign Travel: No Contact w/Someone Who Travel: No Recent Hopitalizations: No Immunizations Up To Date Tetanus Booster (TDap): Less than 5yrs Seasonal Allergies Seasonal Allergies: No Past Medical History Surgeries: Yes (CYSTOSCOPY) Abdominal, Bladder Surgery Respiratory: Yes Asthma, Sleep Apnea, COPD Currently Using CPAP: Yes Cardiac: Yes (NON-COMPLIANT WITH MEDICATIONS) Hypertension Neurological: Yes (PT UNABLE TO GIVE DETAILS ABOUT SEIZURES) Concussion, Seizure Disorder, Traumatic Brain Injury Reproductive Disorders: Yes (E.D.) Sexually Transmitted Disease: No HIV/AIDS: No Genitourinary: Yes (E.D.) Kidney Stones Gastrointestinal: Yes (HEPATITIS C-NO TREATMENT, Bowel obstruction. ) Hepatitis Musculoskeletal: Yes (Injured back 1969) Degenerate Disk Disease, Chronic Back Pain Endocrine: No HEENT: No Cancer: No Psychosocial: Yes (POLYSUBSTANCE ABUSE) Anxiety, PTSD, Depression Integumentary: No Blood Disorders: No Family Medical History No Pertinent Family Hx Physical Exam Vital Signs Capillary Refill : Height, Weight, BMI Height: 5'11.00" Weight: 160lbs. 0.0oz. 72.141420hh; 22.00 BMI Method:Stated General Appearance: No Apparent Distress, WD/WN, Other (hostile toward staff, pulled out his IV and requests to leave. Again he is alert and oriented.) Eyes: Bilateral Eye Normal Inspection, Bilateral Eye PERRL, Bilateral Eye EOMI HEENT: PERRL/EOMI, TMs Normal Neck: Full Range of Motion, Normal Inspection Respiratory: Normal Breath Sounds, No Accessory Muscle Use, No Respiratory Distress Cardiovascular: Regular Rate, Rhythm, Normal Peripheral Pulses Gastrointestinal: Normal Bowel Sounds, Non Tender, Soft Extremity: Normal Capillary Refill, Normal Inspection Neurologic/Psychiatric: Alert, Oriented x3 Skin: Normal Color, Warm/Dry Progress/Results/Core Measures Suspected Sepsis SIRS Temperature: Pulse: Respiratory Rate: Blood Pressure / Mean: Results/Orders My Orders Orders - HEBERT DYER APRN Cbc With Automated Diff (06/01/19 20:09) Comprehensive Metabolic Panel (06/01/19 20:09) Ua Culture If Indicated (06/01/19 20:09) Drug Screen Stat (Urine) (06/01/19 20:09) Alcohol (06/01/19 20:09) Ed Iv/Invasive Line Start (06/01/19 20:09) Vital Signs/I&O Capillary Refill : Departure Impression Primary Impression: Left against medical advice Disposition: 07 AGAINST MEDICAL ADVICE Condition: Against Medical Advice Departure-Patient Inst. Referrals: NO,LOCAL PHYSICIAN (PCP) Primary Care Physician LADONNA LEES (Family) Primary Care Physician HEBERT DYER APRN Jun 01, 2019 20:16
[2019-06-01 20:23] LABS: BASOPHILS % (AUTO) 0 % (0-10); EOSINOPHILS # (AUTO) 0.1 10^3/uL (0.0-0.3); EOSINOPHILS % (AUTO) 1 % (0-10); HEMATOCRIT 38 % (40-54); HEMOGLOBIN 12.9 G/DL (13.3-17.7); LYMPHOCYTES # (AUTO) 2.1 X 10^3 (1.0-4.0); LYMPHOCYTES % (AUTO) 40 % (12-44); MEAN CORPUSCULAR HEMOGLOBIN 34 PG (25-34); MEAN CORPUSCULAR HGB CONC 34 G/DL (32-36); MEAN CORPUSCULAR VOLUME 100 FL (80-99); MEAN PLATELET VOLUME 10.1 FL (7.4-10.4); MONOCYTES # (AUTO) 0.7 X 10^3 (0.0-1.0); MONOCYTES % (AUTO) 14 % (0-12); NEUTROPHILS # (AUTO) 2.4 X 10^3 (1.8-7.8); NEUTROPHILS % (AUTO) 45 % (42-75); PLATELET COUNT 126 10^3/uL (130-400); RED CELL DISTRIBUTION WIDTH 13.9 % (10.0-14.5); WHITE BLOOD COUNT 5.3 10^3/uL (4.3-11.0)
[2019-06-01 20:34] LABS: ALANINE AMINOTRANSFERASE 85 U/L (0-55); ALBUMIN 3.4 GM/DL (3.2-4.5); ALKALINE PHOSPHATASE 152 U/L (40-136); BILIRUBIN,TOTAL 2.3 MG/DL (0.1-1.0); BUN/CREATININE RATIO 15; CALCIUM 8.5 MG/DL (8.5-10.1); CARBON DIOXIDE 23 MMOL/L (21-32); CHLORIDE 102 MMOL/L (98-107); CREATININE SERUM 0.89 MG/DL (0.60-1.30); GFR ESTIMATED > 60; GLUCOSE 97 MG/DL (70-105); POTASSIUM 3.5 MMOL/L (3.6-5.0); SODIUM 136 MMOL/L (135-145); TOTAL PROTEIN 6.7 GM/DL (6.4-8.2)
== END 2019-06-01 20:17 | disposition left against medical advice (07) ==
LOC: EDUNIT# 20:01 → ER 20:04
DX: R41.0 Disorientation, unspecified (principal); J44.9 Chronic obstructive pulmonary disease, unspecified; G47.30 Sleep apnea, unspecified; J45.909 Unspecified asthma, uncomplicated; I10 Essential (primary) hypertension; G40.909 Epilepsy, unspecified, not intractable, without status epilepticus; F41.9 Anxiety disorder, unspecified; F43.10 Post-traumatic stress disorder, unspecified; F32.9 Major depressive disorder, single episode, unspecified; Z87.442 Personal history of urinary calculi; Z88.5 Allergy status to narcotic agent; Z88.2 Allergy status to sulfonamides; Z88.6 Allergy status to analgesic agent; Z79.52 Long term (current) use of systemic steroids; Z77.22 Contact with and (suspected) exposure to environmental tobacco smoke (acute) (chronic)
CPT/HCPCS: 36415; 80053; 80320; 85025

== ENCOUNTER 2020-05-21 22:12 | Emergency (ER) | payer MEDICAID ==
[~2020-05-21] VITALS: Ht 180 cm; Wt 79.0 kg
[~2020-05-21 22:12] MED LIST changes: +ALPR.25T PO; -ALPR0.254 PO; -DOXY100T19 PO; +DOXY100T31 PO; -MINO100C2 PO; +MINO100C5 PO; +TRM50T PO
[2020-05-21] MEDS ORDERED: MUPI22OI2 TP (22:36)
[2020-05-21] MEDS ORDERED: MOME45CR3 TP (22:36)
[2020-05-21] MEDS ORDERED: HYDR50CA3 PO (22:36)
--- NOTE | 2020-05-21 22:37 | ED Integumentary General ---
General Chief Complaint: Bite-Animal/Human/Insect Stated Complaint: BUGBITE Nursing Triage Note: Patient presented to the ER via EMS with complaints of bug bites on his back that are painful. He states the bugs have been laying eggs under his skin and that they are not getting better. Source: patient Allergies and Home Medications Allergies Coded Allergies: acetaminophen (Unverified Adverse Reaction, Mild, GI BLEED, N/V, 10/14/10) Sulfa (Sulfonamide Antibiotics) (Unverified Adverse Reaction, Unknown, GI BLEED, N/V, 04/08/15) aspirin (Unverified Adverse Reaction, Unknown, GI BLEED, N/V, 04/08/15) Home Medications Cyclobenzaprine HCl 10 Mg Tablet, 10 MG PO Q8H PRN for SPASMS Prescribed by: JULIO JOHNSON on 12/29/171709 Methylprednisolone 4 Mg Tab.ds.pk, 4 MG PO UD Prescribed by: ANTOINE ZHANG on 10/14/182042 Ondansetron 4 Mg Tab.rapdis, 4 MG PO Q4H Prescribed by: ANTOINE ZHANG on 10/14/182042 Prednisone 20 Mg Tab, 40 MG PO DAILY Prescribed by: JULIO JOHNSON on 12/29/171709 Tramadol HCl 50 Mg Tablet, 50 MG PO Q6H PRN for PAIN Prescribed by: JULIO JOHNSON on 12/29/171709 Past Rsugcvj-Luafhi-Kzypdt Hx Patient Social History Alcohol Use: Denies Use Recreational Drug Use: No Drug of Choice: PT DENIES, BUT HAS TESTED + FOR THC AND METH/AMPHETAMINES Smoking Status: Current Everyday Smoker Type Used: Cigarettes 2nd Hand Smoke Exposure: Yes Recent Foreign Travel: No Contact w/Someone Who Travel: No Recent Infectious Disease Expo: No Recent Hopitalizations: No Immunizations Up To Date Tetanus Booster (TDap): Less than 5yrs Seasonal Allergies Seasonal Allergies: No Past Medical History Surgeries: Yes (CYSTOSCOPY) Abdominal, Bladder Surgery Respiratory: Yes Asthma, Sleep Apnea, COPD Currently Using CPAP: Yes Cardiac: Yes (NON-COMPLIANT WITH MEDICATIONS) Hypertension Neurological: Yes (PT UNABLE TO GIVE DETAILS ABOUT SEIZURES) Concussion, Seizure Disorder, Traumatic Brain Injury Reproductive Disorders: Yes (E.D.) Sexually Transmitted Disease: No HIV/AIDS: No Genitourinary: Yes (E.D.) Kidney Stones Gastrointestinal: Yes (HEPATITIS C-NO TREATMENT, Bowel obstruction. ) Hepatitis Musculoskeletal: Yes (Injured back 1969) Degenerate Disk Disease, Chronic Back Pain Endocrine: No HEENT: No Cancer: No Psychosocial: Yes (POLYSUBSTANCE ABUSE) Anxiety, PTSD, Depression Integumentary: No Blood Disorders: No Family Medical History No Pertinent Family Hx Physical Exam Vital Signs Vital Signs - First Documented Capillary Refill : Less Than 3 Seconds Progress/Results/Core Measures Results/Orders Vital Signs/I&O 05/21/20 22:13 B/P (MAP) Departure Impression Primary Impression: MULTIPLE SORES ON TRUNK Disposition: HOME, SELF-CARE Condition: Stable Departure-Patient Inst. Referrals: NO,LOCAL PHYSICIAN (PCP) Primary Care Physician LADONNA LEES (Family) Primary Care Physician Patient Instructions: Itchy Skin, Skin Rash (DC) Add. Discharge Instructions: DO NOT USE ALCOHOL OR PEROXIDE ON SORES OR SKIN USE ANTIBACTERIAL SOAP AND WATER TO AREAS TWICE A DAY AND RINSE WELL WITH WATER APPLY ANTIBIOTIC OINTMENT AND ANTI-ITCH CREAM TWICE A DAY TO SORES FOLLOW UP WITH YOUR DR IN 5-7 DAYS FOR FURTHER CARE--CALL IN AM TO MAKE AN APPOINTMENT All discharge instructions reviewed with patient and/or family. Voiced understanding. Scripts Mupirocin (Mupirocin) 22 Gm Oint...g. 22 GM TP BID, #1 TUBE Prov: ANTOINE ZHANG DO 05/21/20 Mometasone Furoate (Mometasone Furoate) 45 Gm Cream..g. 45 GM TP TID, #1 TUBE Prov: ANTOINE ZHANG DO 05/21/20 Hydroxyzine Pamoate (Hydroxyzine Pamoate) 50 Mg Capsule 50 MG PO Q6H PRN for ITCHING, #15 CAP Prov: ANTOINE ZHANG DO 05/21/20 ANTOINE ZHANG DO May 21, 2020 22:37
[2020-05-21 22:56] VITALS: BP 142/82
== END 2020-05-21 22:57 | disposition home or self-care (01) ==
LOC: EDUNIT# 22:12 → ER 22:13
DX: L98.8 Other specified disorders of the skin and subcutaneous tissue (principal); J44.9 Chronic obstructive pulmonary disease, unspecified; F17.210 Nicotine dependence, cigarettes, uncomplicated; Z88.2 Allergy status to sulfonamides; Z88.6 Allergy status to analgesic agent; Z88.8 Allergy status to other drugs, medicaments and biological substances; Z87.820 Personal history of traumatic brain injury; Z79.52 Long term (current) use of systemic steroids
CPT/HCPCS: 99283

== ENCOUNTER 2020-11-03 03:50 | Emergency (ER) | payer MEDICAID ==
[~2020-11-03] VITALS: Ht 180 cm; Wt 79.0 kg
[~2020-11-03 03:50] MED LIST changes: +HYDR50CA3 PO; +MOME45CR3 TP; +MUPI22OI2 TP
[2020-11-03 03:55] VITALS: BP 176/95
--- NOTE | 2020-11-03 04:23 | ED Lower Extremity ---
General Chief Complaint: Lower Extremity Stated Complaint: HEEL PAIN Nursing Triage Note: BROUGHT IN BY [facility] FOR RIGHT HEEL PAIN X2 DAYS AFTER STOMPING ON CONCRETE. REPORTS UNABLE TO BEAR WEIGHT ON RIGHT HEEL. Nursing Sepsis Screen: No Definite Risk Source: patient, EMS History of Present Illness Date Seen by Provider: November 03, 2020 Time Seen by Provider: 03:57 Initial Comments PT ARRIVES VIA EMS FROM HOME C/O RIGHT HEEL PAIN STATES AROUND 1600 ON Friday11/01/20, HE STOMPED ON CONCRETE AND HAS BEEN HAVING PAIN IN RIGHT HEEL SINCE THEN STATES HE CANNOT BEAR WEIGHT ON IT NO PARESTHESIAS OR MOTOR DEFICITS NO PRIOR INJURY TO THIS FOOT/HEEL HAS NOT TAKEN ANYTHING FOR PAIN AT ANY TIME HAS NOT SOUGHT CARE UNTIL [place] WAS AT [facility] YESTERDAY FOR CHRONIC BACK PAIN / HIP PAIN AND GOT A CORTISONE SHOT IN BACK/HIP. NO RX'S ROUTINE EXAM AT [facility] LAST FRIDAY. NO RX'S PCP: [facility] ALSO GO[facility] TO [place] IN [facility] Allergies and Home Medications Allergies Coded Allergies: acetaminophen (Unverified Adverse Reaction, Mild, GI BLEED, N/V, 10/14/10) Sulfa (Sulfonamide Antibiotics) (Unverified Adverse Reaction, Unknown, GI BLEED, N/V, 04/08/15) aspirin (Unverified Adverse Reaction, Unknown, GI BLEED, N/V, 04/08/15) Home Medications Naproxen 500 Mg Tablet.dr, 500 MG PO BID Prescribed by: ANTOINE ZHANG on 11/03/20451 Tramadol HCl 50 Mg Tablet, 50 MG PO Q4H Prescribed by: ANTOINE ZHANG on 11/03/20 045 Patient Home Medication List Home Medication List Reviewed: Yes Review of Systems Constitutional: no symptoms reported Musculoskeletal: see HPI Skin: no symptoms reported Psychiatric/Neurological: No Symptoms Reported Past [place]-Mqldmw-Ickqee Hx Past Med/Social Hx: Reviewed and Corrections made Patient Social History Alcohol Use: Denies Use Drug of Choice: PT DENIES, BUT HAS TESTED + FOR THC AND METH/AMPHETAMINES Smoking Status: Current Everyday Smoker Type Used: Cigarettes 2nd Hand Smoke Exposure: Yes Recent Infectious Disease Expo: No Recent Hopitalizations: No Immunizations Up To Date Tetanus Booster (TDap): Less than 5yrs Seasonal Allergies Seasonal Allergies: No Past Medical History Surgeries: Yes (CYSTOSCOPY) Abdominal, Bladder Surgery Respiratory: Yes Asthma, Sleep Apnea, COPD Currently Using CPAP: Yes Cardiac: Yes Hypertension Neurological: Yes Concussion, Seizure Disorder, Traumatic Brain Injury Reproductive Disorders: Yes (E.D.) Sexually Transmitted Disease: No HIV/AIDS: No Genitourinary: Yes Kidney Stones Gastrointestinal: Yes (HEPATITIS C-NO TREATMENT, Bowel obstruction. ) Obstructive Bowel, Hepatitis Musculoskeletal: Yes (Injured back 1969) Degenerate Disk Disease, Chronic Back Pain Endocrine: No HEENT: No Cancer: No Psychosocial: Yes Anxiety, PTSD, Depression Integumentary: No Blood Disorders: No Family Medical History No Pertinent Family Hx SOCIAL HISTORY: -ETOH--PT DENIES, BUT HAS KNOWN HISTORY OF ETOH ABUSE -DRUGS--PT DENIES BUT HAS TESTED + FOR AMPHETAMINES/METHAMPHETAMINES AND THC IN PAST -SMOKES AT LEAST 1/2 PPD PT IS WELL KNOWN TO STAFF WITH HISTORY OF EXTENSIVE POLYSUBSTANCE ABUSE. 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 Physical Exam Vital Signs Vital Signs - First Documented 11/03/20 03:55 Temp 36.5 Pulse 80 Resp 18 B/P (MAP) 176/95 (122) Pulse Ox 98 O2 Delivery Room Air Capillary Refill : Less Than 3 Seconds Height, Weight, BMI Height: 5'11.00" Weight: 160lbs. 0.0oz. [id number]; 24.00 BMI Method:Stated General Appearance: WD/WN, no apparent distress, other (WEARING HARD SOLED DRESS SHOES. ) Legs: right leg normal inspection Ankles: right ankle normal inspection Feet: right foot other (VERY EXAGGERATED PAIN RESPONSE--YELLS IN PAIN EVEN BEFORE HE IS TOUCHED. TENDERNESS TO RIGHT HEEL. MILD SWELLING TO HELL AND ARCH OF FOOT. MOTOR/SENSORY/VASCULAR INTACT. ) Neurologic/Tendon: normal sensation, normal motor functions, normal tendon functions Neurologic/Psychiatric: no motor/sensory deficits, alert, normal mood/affect, oriented x 3 Skin: normal color (PT IS BLACK), warm/dry; No ecchymosis Procedures/Interventions Splinting and Joint Reduction : Sal wrap: Yes Immobilizers: Step Light Walker s/m/lg Progress/Results/Core Measures Results/Orders My Orders Orders - ANTOINE ZHANG DO Foot, Right, 3 View (11/03/20 04:06) Heel, Right, 2 Views (11/03/20 04:06) Rx-Naproxen (Rx-Naprosyn) (11/03/20 04:52) Rx-Tramadol Hcl (Rx-Ultram) (11/03/20 04:52) Sal Bandage (11/03/20 04:52) Steplite (11/03/20 04:52) Vital Signs/I&O 11/03/20 03:55 Temp 36.5 Pulse 80 Resp 18 B/P (MAP) 176/95 (122) Pulse Ox 98 O2 Delivery Room Air Blood Pressure Mean: 122 Diagnostic Imaging Comments XRAYS RIGHT FOOT AND CALCANEOUS--NO ACUTE PROCESS, PENDING RADIOLOGIST REVIEW Reviewed: Reviewed by Me Departure Impression Primary Impression: Contusion of right heel Disposition: HOME, SELF-CARE Condition: Stable Departure-Patient Inst. Decision time for Depature: 04:49 Referrals: NO,LOCAL PHYSICIAN (PCP) Primary Care Physician LADONNA LEES (Family) Primary Care Physician Patient Instructions: Contusion (DC) Add. Discharge Instructions: WEAR SAL WRAP AND WALKING BOOT AT ALL TIMES ICE TO AREA AT 20 MINUTE INTERVALS FOLLOW UP WITH [facility] IN 2-3 DAYS FOR FURTHER CARE All discharge instructions reviewed with patient and/or family. Voiced understanding. Scripts Tramadol HCl (Ultram) 50 Mg Tablet 50 MG PO Q4H for Pain, #20 TAB Prov: ANTOINE ZHANG DO 11/03/20 Naproxen (Naproxen) 500 Mg Tablet.dr 500 MG PO BID, #20 TAB Prov: ANTOINE ZHANG DO 11/03/20 ANTOINE ZHANG DO November 03, 2020 04:23
[2020-11-03] MEDS ORDERED: TRAM-42 PO (04:52)
[2020-11-03] MEDS ORDERED: RX-NAPROXEN (NAPROSYN) 250 MG TAB PPK#4 PO STA (04:52)
[2020-11-03] MEDS ORDERED: NAPR500T8 PO (04:52)
--- NOTE | 2020-11-03 07:30 | Diagnostic Imaging Report ---
Indication: Heel pain x2 days. Recent injury unable to bear weight. Examination: Right foot 11/03/2020 3 views of the foot. There are degenerative findings throughout the dorsum of the midfoot and at the 1st metatarsophalangeal joint. No fractures or dislocations. Impression: 1. Chronic findings, no acute osseous abnormality. Dictated by: Dictated on workstation # [id number]
--- NOTE | 2020-11-03 07:31 | Diagnostic Imaging Report ---
INDICATION: Injury. Heel pain. EXAMINATION: Right heel from 11/03/2020 FINDINGS: 2 views of the heel There is no evidence for an acute fracture or dislocation. The joint spaces are well maintained. There is no significant soft tissue swelling. IMPRESSION: No acute process. Dictated by: Dictated on workstation # [id number]
== END 2020-11-03 04:55 | disposition home or self-care (01) ==
LOC: EDUNIT# 03:50 → ER 03:52
DX: S90.31XA Contusion of right foot, initial encounter (principal); I10 Essential (primary) hypertension; J44.9 Chronic obstructive pulmonary disease, unspecified; G47.30 Sleep apnea, unspecified; F17.210 Nicotine dependence, cigarettes, uncomplicated; Z99.89 Dependence on other enabling machines and devices; Z88.6 Allergy status to analgesic agent; W22.8XXA Striking against or struck by other objects, initial encounter
CPT/HCPCS: 73630; 73650

== ENCOUNTER 2020-11-23 00:57 | Emergency (ER) | payer MEDICAID ==
[~2020-11-23] VITALS: Ht 178 cm; Wt 68.9 kg
[~2020-11-23 00:57] MED LIST changes: +NAPR500T8 PO; +TRAM-42 PO
[2020-11-23] MEDS ORDERED: RT-ALBUINH IH ×2 (01:05→03:06)
[2020-11-23 02:12] LABS: MEAN CORPUSCULAR VOLUME 102 fL (80-99)
[2020-11-23 02:14] LABS: BASOPHILS % (AUTO) 0 % (0-10); EOSINOPHILS # (AUTO) 0.1 10^3/uL (0.0-0.3); EOSINOPHILS % (AUTO) 1 % (0-10); HEMATOCRIT 38 % (40-54); HEMOGLOBIN 13.2 g/dL (13.3-17.7); LYMPHOCYTES # (AUTO) 1.2 10^3/uL (1.0-4.0); LYMPHOCYTES % (AUTO) 27 % (12-44); MEAN CORPUSCULAR HEMOGLOBIN 35 pg (25-34); MEAN CORPUSCULAR HGB CONC 35 g/dL (32-36); MEAN PLATELET VOLUME 9.9 fL (9.0-12.2); MONOCYTES # (AUTO) 0.6 10^3/uL (0.0-1.0); MONOCYTES % (AUTO) 13 % (0-12); NEUTROPHILS # (AUTO) 2.6 10^3/uL (1.8-7.8); NEUTROPHILS % (AUTO) 58 % (42-75); PLATELET COUNT 127 10^3/uL (130-400); WHITE BLOOD COUNT 4.5 10^3/uL (4.3-11.0)
[2020-11-23 02:31] LABS: ALBUMIN 2.7 GM/DL (3.2-4.5); CHLORIDE 105 MMOL/L (98-107); POTASSIUM 3.7 MMOL/L (3.6-5.0); SODIUM 139 MMOL/L (135-145)
[2020-11-23 02:33] LABS: CALCIUM 8.4 MG/DL (8.5-10.1)
[2020-11-23 02:34] LABS: GLUCOSE 133 MG/DL (70-105); TOTAL PROTEIN 6.5 GM/DL (6.4-8.2)
[2020-11-23 02:35] LABS: CARBON DIOXIDE 25 MMOL/L (21-32)
[2020-11-23 02:36] LABS: BILIRUBIN,TOTAL 1.2 MG/DL (0.1-1.0)
[2020-11-23 02:37] LABS: ALKALINE PHOSPHATASE 234 U/L (40-136); CREATININE SERUM 0.87 MG/DL (0.60-1.30); GFR ESTIMATED > 60
[2020-11-23 02:38] LABS: BUN/CREATININE RATIO 16
[2020-11-23 02:40] LABS: ALANINE AMINOTRANSFERASE 63 U/L (0-55); MAGNESIUM 1.9 MG/DL (1.6-2.4)
[2020-11-23 02:41] LABS: CREATINE KINASE 194 U/L (30-200); LIPASE 64 U/L (8-78)
[2020-11-23 02:48] LABS: BILIRUBIN,URINE NEGATIVE (NEGATIVE); CLARITY,URINE CLEAR; COLOR,URINE YELLOW; GLUCOSE, URINE (UA) NEGATIVE (NEGATIVE); KETONES,URINE NEGATIVE (NEGATIVE); LEUKOCYTE ESTERASE ,URINE NEGATIVE (NEGATIVE); NITRITE,URINE NEGATIVE (NEGATIVE); PH,URINE 6.5 (5-9); PROTEIN,URINE NEGATIVE (NEGATIVE)
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
[2020-11-23] MEDS ORDERED: GUAI1TBM19 PO (02:52)
[2020-11-23] MEDS ORDERED: DOXY100T2 PO (02:52)
[2020-11-23] MEDS ORDERED: METH4TAB PO (02:52)
[2020-11-23] MEDS ORDERED: BENZ100C18 PO (02:52)
[2020-11-23 02:54] LABS: ERYTHROCYTE SEDIMENTATION RATE 33 MM/HR (0-30)
[2020-11-23] MEDS ORDERED: RX-DOXYCYCLINE 100 MG (VIBRAMYCIN) TAB PPK#2 PO STA (03:04)
[2020-11-23 03:06] VITALS: BP 155/88
[2020-11-23 03:19] LABS: BACTERIA,URINE TRACE /HPF; CALCIUM OXALATE CRYSTALS,UR FEW /LPF; RBC,URINE RARE /HPF; WBC,URINE 0-2 /HPF
[2020-11-23 03:20] LABS: AMPHETAMINE SCREEN, URINE NEGATIVE (NEGATIVE); BARBITURATE SCREEN URINE NEGATIVE (NEGATIVE); BENZODIAZEPINES SCREEN URINE NEGATIVE (NEGATIVE); CANNABINOID SCREEN, URINE POSITIVE (NEGATIVE); COCAINE SCREEN URINE NEGATIVE (NEGATIVE); METHADONE STAT NEGATIVE (NEGATIVE); METHAMPHETAMINE SCREEN URINE S POSITIVE (NEGATIVE); OPIATE SCREEN URINE NEGATIVE (NEGATIVE); OXYCODONE STAT NEGATIVE (NEGATIVE); PROPOXYPHENE STAT NEGATIVE (NEGATIVE); TRICYCLIC ANTIDEPRESSANTS SCRE NEGATIVE (NEGATIVE)
--- NOTE | 2020-11-23 05:28 | Diagnostic Imaging Report ---
INDICATION: Chest pain and shortness of breath Portable chest 1:34 AM Heart size and pulmonary vascularity are normal. Lungs are clear. There are no effusions or pneumothoraces. IMPRESSION: Negative chest Dictated by: Dictated on workstation # [id number]
== END 2020-11-23 03:12 | disposition home or self-care (01) ==
LOC: EDUNIT# 00:57 → ER 01:03
DX: J40 Bronchitis, not specified as acute or chronic (principal); R74.8 Abnormal levels of other serum enzymes; J44.9 Chronic obstructive pulmonary disease, unspecified; I10 Essential (primary) hypertension; F17.210 Nicotine dependence, cigarettes, uncomplicated; Z20.822 Contact with and (suspected) exposure to COVID-19; Z87.820 Personal history of traumatic brain injury; Z79.52 Long term (current) use of systemic steroids
CPT/HCPCS: 36415; 71045; 80053; 80306; 80320; 81000; 82550; 82553; 83615; 83690; 83735; 83880; 84145; 85025; 85379; 85652; 86141; 87040; 87636; 93005

== ENCOUNTER 2020-12-28 20:46 | Emergency (ER) | payer MEDICAID ==
[~2020-12-28] VITALS: Ht 177.2 cm; Wt 65.8 kg
[~2020-12-28 20:46] MED LIST changes: +BENZ100C18 PO; +GUAI1TBM19 PO; +RT-ALBUINH IH
[2020-12-28 20:54] VITALS: BP 157/81
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
== END 2020-12-28 21:31 | disposition home or self-care (01) ==
LOC: EDUNIT# 20:46 → ER FS 20:48
DX: T67.2XXA Heat cramp, initial encounter (principal); J44.9 Chronic obstructive pulmonary disease, unspecified; G47.30 Sleep apnea, unspecified; I10 Essential (primary) hypertension; F41.9 Anxiety disorder, unspecified; Z87.820 Personal history of traumatic brain injury; Z79.52 Long term (current) use of systemic steroids
CPT/HCPCS: 99283

== ENCOUNTER 2021-07-03 15:00 | Emergency (ER) | payer MEDICAID ==
[~2021-07-03] VITALS: Ht 177 cm; Wt 74.0 kg
[~2021-07-03 15:00] MED LIST changes: +CYCL10TA25 PO
[2021-07-03] MEDS ORDERED: NS IV 1000 ML 1,000 ML IV SCH ×2 (15:15→16:15)
[2021-07-03] MEDS ORDERED: PANTOPRAZOLE 40 MG (PROTONIX) VIAL IV ONE (15:15)
[2021-07-03] MEDS ORDERED: fentaNYL INJ 100 MCG/2 ML AMP IVP ONE ×2 (15:15→16:15)
[2021-07-03 15:37] LABS: BASOPHILS % (AUTO) 0 % (0-10); EOSINOPHILS # (AUTO) 0.1 10^3/uL (0.0-0.3); EOSINOPHILS % (AUTO) 1 % (0-10); HEMATOCRIT 44 % (40-54); HEMOGLOBIN 14.6 g/dL (13.3-17.7); LYMPHOCYTES # (AUTO) 2.3 X 10^3 (1.0-4.0); LYMPHOCYTES % (AUTO) 42 % (12-44); MEAN CORPUSCULAR HEMOGLOBIN 35 pg (25-34); MEAN CORPUSCULAR HGB CONC 33 g/dL (32-36); MEAN CORPUSCULAR VOLUME 105 fL (80-99); MEAN PLATELET VOLUME 10.9 fL (9.0-12.2); MONOCYTES # (AUTO) 0.5 X 10^3 (0.0-1.0); MONOCYTES % (AUTO) 9 % (0-12); NEUTROPHILS # (AUTO) 2.6 X 10^3 (1.8-7.8); NEUTROPHILS % (AUTO) 47 % (42-75); PLATELET COUNT 112 10^3/uL (130-400); WHITE BLOOD COUNT 5.5 10^3/uL (4.3-11.0)
[2021-07-03 15:54] LABS: POTASSIUM 3.8 MMOL/L (3.6-5.0)
[2021-07-03 15:55] LABS: CALCIUM 8.1 MG/DL (8.5-10.1)
[2021-07-03 15:57] LABS: TOTAL PROTEIN 7.3 GM/DL (6.4-8.2)
[2021-07-03 15:58] LABS: BILIRUBIN,TOTAL 1.7 MG/DL (0.1-1.0)
[2021-07-03 16:00] LABS: CREATININE SERUM 1.02 MG/DL (0.60-1.30)
[2021-07-03] MEDS ORDERED: IOHEXOL 350 MG/ML 100 ML (OMNIPAQUE 350) VIAL IV ONE (16:15)
[2021-07-03] MEDS ORDERED: HOLD METFORMIN - RECEIVED CONTRAST 20 ML VIAL IV SCH (16:15)
[2021-07-03] MEDS ORDERED: NS 100 ML (IVPB) BAG IV ONE (16:15)
--- NOTE | 2021-07-03 16:47 | Diagnostic Imaging Report ---
PROCEDURE: CT abdomen and pelvis with contrast. TECHNIQUE: Multiple contiguous axial images were obtained through the abdomen and pelvis after administration of intravenous contrast. Auto Exposure Controls were utilized during the CT exam to meet ALARA standards for radiation dose reduction. All CT scans use one or more of the following dose optimizing techniques: Automated exposure control, MA and/or KvP adjustment based on patient size and exam type or iterative reconstruction. INDICATION: Nausea, vomiting, and diarrhea since yesterday. Patient also has coffee-ground emesis. COMPARISON: Comparison is made with prior CT from 10/14/2018. FINDINGS: Lung bases are clear. No discrete liver mass is detected. Gallbladder is unremarkable. Pancreas and spleen are unremarkable. No definite adrenal mass is identified. Kidneys are unremarkable apart from a cortical low-attenuation lesion in the right kidney, similar to prior exam and most consistent with a cyst. Aorta is nonaneurysmal. No central retroperitoneal or mesenteric lymphadenopathy is detected. The small and large bowel loops are normal in caliber. There is no obstruction. No free fluid or fluid collection is identified. Bladder is unremarkable. Prostate appears enlarged. Bony structures appear nonacute. IMPRESSION: 1. Prostatomegaly. 2. No acute feature in the abdomen or pelvis is identified. Dictated by: Dictated on workstation # [id number]
--- NOTE | 2021-07-03 17:06 | ED Abdominal Pain ---
General Chief Complaint: Abdominal/GI Problems Stated Complaint: N/V Nursing Triage Note: ARRIVED VIA AMBULANCE FROM HOME WITH COMPLAINTS OF N/V/D SINCE YESTERDAY. TODAY STARTED HAVING COFFEE GROUND EMESIS ALONG WITH BRIGHT RED BLOOD. Source of Information: Patient, EMS Exam Limitations: No Limitations History of Present Illness Date Seen by Provider: Jul 03, 2021 Time Seen by Provider: 15:05 Initial Comments Patient is a 71-year-old male who presents to the emergency department by ambulance today with a chief complaint of nausea vomiting and diarrhea onset yes terday followed by the onset of severe right-sided abdominal pain. He states that he was vomiting "brown" initially and then the last 2 or 3 times he vomited bright red blood. He denies any fevers or chills, shortness of breath cough. No pain in his testicles. No problems with urination. He has some right-sided flank/back pain as well. He has a history of alcoholic liver disease. He follows at [facility] [place] and goes to a clinic in [facility]. He has never had any prior abdominal surgeries. States that his last drink of alcohol was "a beer" a couple of days ago. He had not taken anything for the symptoms of vomiting and diarrhea. Denies any blood in his stool. He is not on any type of PPI. Tells me that he has a history of "hiatal hernia". Did describe an orthostatic syncopal event when he was getting up out of his chair earlier today. Did not hit his head that he is aware of. Is not on blood thinners. No cardiac disease history. Not vaccinated for Covid. All other review of systems reviewed and negative except as stated Timing/Duration: 1-2 Days Severity/Quality: Severe, Aching Location: RUQ, RLQ Radiation: No Radiation Activities at Onset: None Associated Symptoms: Nausea/Vomiting Allergies and Home Medications Allergies Coded Allergies: ibuprofen (Verified Allergy, Unknown, 07/03/21) acetaminophen (Unverified Adverse Reaction, Mild, GI BLEED, N/V, 10/14/10) Sulfa (Sulfonamide Antibiotics) (Unverified Adverse Reaction, Unknown, GI BLEED, N/V, 04/08/15) aspirin (Unverified Adverse Reaction, Unknown, GI BLEED, N/V, 04/08/15) Patient Home Medication List Home Medication List Reviewed: Yes Albuterol Sulfate (Proair Hfa) 1 Puff Puff, 2 PUFF IH Q4H, (Reported) Entered as Reported by: NUBIA VALDES on 11/23/20 0105 Albuterol Sulfate (Proair Hfa) 1 Puff Puff, 2 PUFF IH Q4H Prescribed by: ANTOINE ZHANG on 11/23/20 0306 Benzonatate (Tessalon Perles) 100 Mg Capsule, 200 MG PO TID Prescribed by: ANTOINE ZHANG on 11/23/20 025 Doxycycline Hyclate (Doxycycline Hyclate) 100 Mg Tablet, 100 MG PO BID Prescribed by: ANTOINE ZHANG on 11/23/20251 Guaifenesin/Dextromethorphan (Mucinex Dm ER 1,200-60 mg Tab) 1 Each Tbmp.12hr, 1 EACH PO BID Prescribed by: ANTOINE ZHANG on 11/23/20251 Methylprednisolone (Medrol) 4 Mg Tab.ds.pk, 4 MG PO UD Prescribed by: ANTOINE ZHANG on 11/23/20251 Ondansetron (Ondansetron Odt) 4 Mg Tab.rapdis, 4 MG PO Q8H PRN for nausea Prescribed by: PENNY ONEILL on 07/03/211719 Pantoprazole Sodium (Pantoprazole Sodium) 20 Mg Tablet.dr, 20 MG PO DAILY Prescribed by: PENNY ONEILL on 07/03/211719 Review of Systems Review of Systems Constitutional: see HPI EENTM: No Symptoms Reported Respiratory: No Symptoms Reported Cardiovascular: No Symptoms Reported Gastrointestinal: Abdominal Pain, Diarrhea, Nausea, Vomiting Genitourinary: No Symptoms Reported Musculoskeletal: no symptoms reported Skin: no symptoms reported Psychiatric/Neurological: No Symptoms Reported All Other Systems Reviewed Negative Unless Noted: Yes Past Hrbquji-Crcuhv-Wgztae Hx Patient Social History Smoking Status: Current Everyday Smoker Substance use?: No Alcohol Frequency: Once in a while Immunizations Up To Date Tetanus Booster (TDap): Less than 5yrs Seasonal Allergies Seasonal Allergies: No Past Medical History Surgeries: Yes (CYSTOSCOPY) Abdominal, Bladder Surgery Respiratory: Yes Asthma, Sleep Apnea, COPD Currently Using CPAP: Yes Cardiac: Yes Hypertension Neurological: Yes Concussion, Seizure Disorder, Traumatic Brain Injury Reproductive Disorders: Yes (E.D.) Sexually Transmitted Disease: No HIV/AIDS: No Genitourinary: Yes Kidney Stones Gastrointestinal: Yes (HEPATITIS C-NO TREATMENT, Bowel obstruction. ) Obstructive Bowel, Hepatitis Musculoskeletal: Yes (Injured back 1969) Degenerate Disk Disease, Chronic Back Pain Endocrine: No HEENT: No Cancer: No Psychosocial: Yes (POLYSUBSTANCE ABUSE) Anxiety, PTSD, Depression Integumentary: No Blood Disorders: No Family Medical History No Pertinent Family Hx SOCIAL HISTORY: -ETOH--PT DENIES, BUT HAS KNOWN HISTORY OF ETOH ABUSE -DRUGS--PT DENIES BUT HAS TESTED + FOR AMPHETAMINES/METHAMPHETAMINES AND THC -SMOKES AT LEAST 1/2 PPD PT IS WELL KNOWN TO STAFF WITH HISTORY OF EXTENSIVE POLYSUBSTANCE ABUSE. 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 LONG HISTORY OF NON-COMPLIANCE Physical Exam Vital Signs Vital Signs - First Documented 07/03/21 15:00 Temp 37.0 Pulse 87 Resp 16 B/P (MAP) 94/64 (74) Pulse Ox 98 O2 Delivery Room Air Capillary Refill : Less Than 3 Seconds Height/Weight/BMI Height: 5'11.00" Weight: 160lbs. 0.0oz. 72.704223ka; 23.00 BMI Method:Stated General Appearance: WD/WN, mild distress HEENT: PERRL/EOMI, pharynx normal Neck: normal inspection Respiratory: lungs clear, normal breath sounds, no respiratory distress, no accessory muscle use Cardiovascular: regular rate, rhythm Gastrointestinal: guarding (involuntary guarding; quiet BS,), tenderness (RUQ, Right LQ; no heel tap) Extremities: normal range of motion, non-tender, normal inspection, no pedal edema Neurologic/Psychiatric: alert, normal mood/affect, oriented x 3 Skin: normal color, warm/dry Progress/Results/Core Measures Results/Orders Lab Results Laboratory Tests Test 07/03/21 15:09 07/03/21 15:40 Range/Units White Blood Count 5.5 4.3-11.0 10^3/uL Red Blood Count 4.19 L 4.30-5.52 10^6/uL Hemoglobin 14.6 13.3-17.7 g/dL Hematocrit 44 40-54 % Mean Corpuscular Volume 105 H 80-99 fL Mean Corpuscular Hemoglobin 35 H 25-34 pg Mean Corpuscular Hemoglobin Concent 33 32-36 g/dL Red Cell Distribution Width 14.0 10.0-14.5 % Platelet Count 112 L 130-400 10^3/uL Mean Platelet Volume 10.9 9.0-12.2 fL Immature Granulocyte % (Auto) 1 % Neutrophils (%) (Auto) 47 42-75 % Lymphocytes (%) (Auto) 42 12-44 % Monocytes (%) (Auto) 9 0-12 % Eosinophils (%) (Auto) 1 0-10 % Basophils (%) (Auto) 0 0-10 % Neutrophils # (Auto) 2.6 1.8-7.8 X 10^3 Lymphocytes # (Auto) 2.3 1.0-4.0 X 10^3 Monocytes # (Auto) 0.5 0.0-1.0 X 10^3 Eosinophils # (Auto) 0.1 0.0-0.3 10^3/uL Basophils # (Auto) 0.0 0.0-0.1 10^3/uL Immature Granulocyte # (Auto) 0.0 0.0-0.1 10^3/uL Prothrombin Time 14.0 12.2-14.7 SEC INR Comment 1.0 0.8-1.4 Activated Partial Thromboplast Time 31 24-35 SEC Sodium Level 139 135-145 MMOL/L Potassium Level 3.8 3.6-5.0 MMOL/L Chloride Level 107 98-107 MMOL/L Carbon Dioxide Level 22 21-32 MMOL/L Anion Gap 10 5-14 MMOL/L Blood Urea Nitrogen 14 7-18 MG/DL Creatinine 1.02 0.60-1.30 MG/DL Estimat Glomerular Filtration Rate 79 BUN/Creatinine Ratio 14 Glucose Level 145 H 70-105 MG/DL Calcium Level 8.1 L 8.5-10.1 MG/DL Corrected Calcium 8.9 8.5-10.1 MG/DL Total Bilirubin 1.7 H 0.1-1.0 MG/DL Aspartate Amino Transf (AST/SGOT) 74 H 5-34 U/L Alanine Aminotransferase (ALT/SGPT) 50 0-55 U/L Alkaline Phosphatase 220 H 40-136 U/L Total Protein 7.3 6.4-8.2 GM/DL Albumin 3.0 L 3.2-4.5 GM/DL Lipase 44 8-78 U/L My Orders Orders - PENNY ONEILL MD Ed Iv/Invasive Line Start (07/03/21 15:15) Cbc With Automated Diff (07/03/21 15:15) Comprehensive Metabolic Panel (07/03/21 15:15) Lipase (07/03/21 15:15) Ct Abdomen/Pelvis W (07/03/21 15:15) Protime With Inr (07/03/21 15:15) Partial Thromboplastin Time (07/03/21 15:15) Ns Iv 1000 Ml (Sodium Chloride 0.9%) (07/03/21 15:15) Fentanyl Inj (Sublimaze Injection) (07/03/21 15:15) Pantoprazole Injection (Protonix Injecti (07/03/21 15:15) Ns Iv 1000 Ml (Sodium Chloride 0.9%) (07/03/21 16:15) Fentanyl Inj (Sublimaze Injection) (07/03/21 16:15) Iohexol Injection (Omnipaque 350 Mg/Ml 1 (07/03/21 16:15) Received Contrast (Hold Metformin- Contr (07/03/21 16:15) Ns (Ivpb) (Sodium Chloride 0.9% Ivpb Bag (07/03/21 16:15) Medications Given in ED Current Medications Medications Dose Ordered Sig/Ivet Route Start Time Stop Time Status Last Admin Dose Admin Fentanyl Citrate 50 mcg ONCE ONCE IVP 07/03/21 15:15 07/03/21 15:17 DC 07/03/21 15:25 50 MCG Fentanyl Citrate 50 mcg ONCE ONCE IVP 07/03/21 16:15 07/03/21 16:16 DC 07/03/21 16:57 50 MCG Iohexol 100 ml ONCE ONCE IV 07/03/21 16:15 07/03/21 16:16 DC 07/03/21 16:39 93 ML Pantoprazole 80 mg ONCE ONCE IV 07/03/21 15:15 07/03/21 15:17 DC 07/03/21 15:25 80 MG Sodium Chloride 100 ml ONCE ONCE IV 07/03/21 16:15 07/03/21 16:16 DC 07/03/21 16:39 80 ML Vital Signs/I&O 07/03/21 15:00 Temp 37.0 Pulse 87 Resp 16 B/P (MAP) 94/64 (74) Pulse Ox 98 O2 Delivery Room Air Blood Pressure Mean: 74 Progress Progress Note : Time: 17:14 Progress Note Patient reevaluated after labs, imaging, a liter and two thirds of fluids. He is also had some fentanyl and Zofran. He feels much better. He is no longer nauseous and is asking for water. CT scan of the abdomen and pelvis with IV contrast shows no acute pathology. His CBC is normal, he does not have a leukocytosis and is not anemic. He has some mild elevation in liver functions. Renal function is normal, electrolytes are normal. Patient's abdomen is reexamined, it is soft with quiet bowel sounds. No involuntary guarding or voluntary guarding. He is able to stand at the bedside for orthostatic vital signs. His blood pressure standing is 116. He does have a slight increase in his heart rate to about 103. But still he feels better. He has about 700 cc left in his second liter of fluids. We will continue to hydrate him, reexamine. I do not suspect an acute surgical process with a normal CT abdomen and pelvis. I will recommend home with a PPI and strict return precautions. He will need reevaluated by his primary care within the week. Diagnostic Imaging Diagonstic Imaging: CT Comments [facility] [place] NAME: LOPEZ [facility] REC#: [id number] PT STATUS: REG ER : 1950 PHYSICIAN: PENNY ONEILL MD ADMIT DATE: 07/03/21/ER Draft Date of Exam:07/03/21 CT ABDOMEN/PELVIS W PROCEDURE: CT abdomen and pelvis with contrast. TECHNIQUE: Multiple contiguous axial images were obtained through the abdomen and pelvis after administration of intravenous contrast. Auto Exposure Controls were utilized during the CT exam to meet ALARA standards for radiation dose reduction. All CT scans use one or more of the following dose optimizing techniques: Automated exposure control, MA and/or KvP adjustment based on patient size and exam type or iterative reconstruction. INDICATION: Nausea, vomiting, and diarrhea since yesterday. Patient also has coffee-ground emesis. COMPARISON: Comparison is made with prior CT from 10/14/2018. FINDINGS: Lung bases are clear. No discrete liver mass is detected. Gallbladder is unremarkable. Pancreas and spleen are unremarkable. No definite adrenal mass is identified. Kidneys are unremarkable apart from a cortical low-attenuation lesion in the right kidney, similar to prior exam and most consistent with a cyst. Aorta is nonaneurysmal. No central retroperitoneal or mesenteric lymphadenopathy is detected. The small and large bowel loops are normal in caliber. There is no obstruction. No free fluid or fluid collection is identified. Bladder is unremarkable. Prostate appears enlarged. Bony structures appear nonacute. IMPRESSION: 1. Prostatomegaly. 2. No acute feature in the abdomen or pelvis is identified. Dictated on workstation # [id number] Dict: 07/03/21 1640 Trans: 07/03/21 1647 [id number] Interpreted by: TONY BAUTISTA MD Electronically signed by: Departure Impression Primary Impression: Abdominal pain Qualified Codes: R10.31 - Right lower quadrant pain Additional Impression: History of cirrhosis Disposition: HOME, SELF-CARE Condition: Stable Departure-Patient Inst. Referrals: NO,LOCAL PHYSICIAN (PCP/Family) Primary Care Physician Patient Instructions: Severe Abdominal Pain, Adult (DC) Add. Discharge Instructions: You will need to follow-up with your primary care physician this week. You may need repeat blood work to check your hemoglobin/level of anemia. I have sent you home with a prescription for Zofran which is a nausea medication. Use this every 8 hours as needed for vomiting. You need to start taking an acid lift mechanic. I am sending you home with a prescription for pantoprazole. Take this daily for the next 2 weeks. Try and avoid alcohol and smoking as this can increase your risk for ulcers and vomiting. Come back to the emergency room if you continue to vomit any blood at all. Neo ecially if you are also having blood in your stool. Scripts Pantoprazole Sodium (Pantoprazole Sodium) 20 Mg Tablet.dr 20 MG PO DAILY for 30 Days, #30 TAB Prov: PENNY ONEILL MD 07/03/21 Ondansetron (Ondansetron Odt) 4 Mg Tab.rapdis 4 MG PO Q8H PRN for nausea, #20 TAB Prov: PENNY ONEILL MD 07/03/21 PENNY ONEILL MD Jul 03, 2021 17:06
[2021-07-03] MEDS ORDERED: PANT20TA18 PO (17:20)
[2021-07-03] MEDS ORDERED: ONDA4TAB11 PO (17:20)
[2021-07-03 18:02] VITALS: BP 148/89
== END 2021-07-03 18:02 | disposition home or self-care (01) ==
LOC: ER 15:00
DX: R10.31 Right lower quadrant pain (principal); G47.30 Sleep apnea, unspecified; J44.9 Chronic obstructive pulmonary disease, unspecified; I10 Essential (primary) hypertension; F17.290 Nicotine dependence, other tobacco product, uncomplicated; Z87.820 Personal history of traumatic brain injury
CPT/HCPCS: 36415; 74177; 80053; 83690; 85025; 85610; 85730

== ENCOUNTER 2021-09-20 15:07 | Emergency (ER) | payer MEDICAID ==
[~2021-09-20] VITALS: Ht 178 cm; Wt 75.0 kg
[~2021-09-20 15:07] MED LIST changes: +PANT20TA18 PO
[2021-09-20] MEDS ORDERED: ANTACID SUSP 30 ML UDC (MYLANTA) PO ONE (15:30)
[2021-09-20] MEDS ORDERED: ONDANSETRON 4 MG/2 ML (SDV) Z0FRAN IVP ONE (15:30)
[2021-09-20] MEDS ORDERED: LIDOCAINE 2% VISCOUS 15 ML UDC PO ONE (15:30)
[2021-09-20 15:36] LABS: BASOPHILS # (AUTO) 0.1 10^3/uL (0.0-0.1); BASOPHILS % (AUTO) 1 % (0-10); EOSINOPHILS # (AUTO) 0.2 10^3/uL (0.0-0.3); EOSINOPHILS % (AUTO) 4 % (0-10); HEMATOCRIT 42 % (40-54); HEMOGLOBIN 14.4 g/dL (13.3-17.7); LYMPHOCYTES % (AUTO) 43 % (12-44); MEAN CORPUSCULAR HEMOGLOBIN 35 pg (25-34); MEAN CORPUSCULAR HGB CONC 34 g/dL (32-36); MEAN CORPUSCULAR VOLUME 103 fL (80-99); MEAN PLATELET VOLUME 10.4 fL (9.0-12.2); MONOCYTES # (AUTO) 0.6 10^3/uL (0.0-1.0); MONOCYTES % (AUTO) 13 % (0-12); NEUTROPHILS # (AUTO) 1.9 10^3/uL (1.8-7.8); NEUTROPHILS % (AUTO) 39 % (42-75); PLATELET COUNT 120 10^3/uL (130-400); WHITE BLOOD COUNT 4.8 10^3/uL (4.3-11.0)
[2021-09-20 15:37] LABS: ALBUMIN 3.4 GM/DL (3.2-4.5)
[2021-09-20 15:38] LABS: CALCIUM 9.3 MG/DL (8.5-10.1)
[2021-09-20 15:40] LABS: TOTAL PROTEIN 8.1 GM/DL (6.4-8.2)
[2021-09-20 15:41] LABS: BILIRUBIN,TOTAL 2.1 MG/DL (0.1-1.0)
[2021-09-20 15:43] LABS: CREATININE SERUM 1.08 MG/DL (0.60-1.30)
[2021-09-20 15:47] LABS: LIPASE 29 U/L (8-78)
--- NOTE | 2021-09-20 15:52 | Diagnostic Imaging Report ---
INDICATION: Left-sided chest pain. EXAMINATION: Portable chest at 03:40 p.m. FINDINGS: Heart size and pulmonary vascularity are normal. Lungs are clear. There are no effusions or pneumothoraces. IMPRESSION: No acute abnormalities in the chest. Dictated by: Dictated on workstation # [id number]
[2021-09-20 16:03] LABS: PROTHROMBIN TIME PATIENT 13.7 SEC (12.2-14.7)
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
[2021-09-20] MEDS ORDERED: PANT40TA2 PO (18:02)
[2021-09-20 18:51] LABS: BILIRUBIN,URINE 1+ (NEGATIVE); CLARITY,URINE CLOUDY; COLOR,URINE DARK YELLOW; GLUCOSE, URINE (UA) NEGATIVE (NEGATIVE); KETONES,URINE NEGATIVE (NEGATIVE); LEUKOCYTE ESTERASE ,URINE TRACE (NEGATIVE); NITRITE,URINE NEGATIVE (NEGATIVE); PH,URINE 5.5 (5-9); PROTEIN,URINE 1+ (NEGATIVE)
[2021-09-20 18:58] LABS: BACTERIA,URINE LARGE /HPF; WBC,URINE 50-100 /HPF
[2021-09-20 18:59] LABS: AMPHETAMINE SCREEN, URINE POSITIVE (NEGATIVE); BARBITURATE SCREEN URINE NEGATIVE (NEGATIVE); BENZODIAZEPINES SCREEN URINE POSITIVE (NEGATIVE); CANNABINOID SCREEN, URINE NEGATIVE (NEGATIVE); COCAINE SCREEN URINE NEGATIVE (NEGATIVE); METHADONE STAT NEGATIVE (NEGATIVE); METHAMPHETAMINE SCREEN URINE S POSITIVE (NEGATIVE); OPIATE SCREEN URINE NEGATIVE (NEGATIVE); OXYCODONE STAT NEGATIVE (NEGATIVE); PROPOXYPHENE STAT NEGATIVE (NEGATIVE); TRICYCLIC ANTIDEPRESSANTS SCRE NEGATIVE (NEGATIVE)
[2021-09-20 19:46] VITALS: BP 122/79
== END 2021-09-20 19:46 | disposition home or self-care (01) ==
LOC: EDUNIT# 15:07 → ER 15:09
DX: R07.9 Chest pain, unspecified (principal); K44.9 Diaphragmatic hernia without obstruction or gangrene; N39.0 Urinary tract infection, site not specified; F17.210 Nicotine dependence, cigarettes, uncomplicated
CPT/HCPCS: 36415; 71045; 80053; 80306; 81000; 83690; 83735; 83874; 84484; 85025; 85610; 85730; 87077; 87088; 87181; 87184; 93041

== ENCOUNTER 2021-11-13 23:56 | Emergency (ER) | payer MEDICAID ==
[~2021-11-13] VITALS: Ht 178 cm; Wt 66.0 kg
[2021-11-13 23:56] VITALS: BP 170/94
[~2021-11-13 23:56] MED LIST changes: +PANT40TA2 PO
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
[2021-11-14] MEDS ORDERED: NS IV 1000 ML 1,000 ML IV SCH (00:30)
[2021-11-14] MEDS ORDERED: fentaNYL INJ 100 MCG/2 ML AMP IVP ONE (00:30)
[2021-11-14 00:32] LABS: BILIRUBIN,URINE NEGATIVE (NEGATIVE); CLARITY,URINE CLEAR; COLOR,URINE YELLOW; GLUCOSE, URINE (UA) NEGATIVE (NEGATIVE); KETONES,URINE NEGATIVE (NEGATIVE); LEUKOCYTE ESTERASE ,URINE 2+ (NEGATIVE); NITRITE,URINE POSITIVE (NEGATIVE); PROTEIN,URINE 1+ (NEGATIVE)
[2021-11-14 00:40] LABS: BASOPHILS % (AUTO) 1 % (0-10); EOSINOPHILS # (AUTO) 0.2 10^3/uL (0.0-0.3); EOSINOPHILS % (AUTO) 5 % (0-10); HEMATOCRIT 36 % (40-54); HEMOGLOBIN 12.4 g/dL (13.3-17.7); LYMPHOCYTES # (AUTO) 2.2 10^3/uL (1.0-4.0); LYMPHOCYTES % (AUTO) 45 % (12-44); MEAN CORPUSCULAR HEMOGLOBIN 35 pg (25-34); MEAN CORPUSCULAR HGB CONC 35 g/dL (32-36); MEAN CORPUSCULAR VOLUME 102 fL (80-99); MEAN PLATELET VOLUME 10.7 fL (9.0-12.2); MONOCYTES # (AUTO) 0.7 10^3/uL (0.0-1.0); MONOCYTES % (AUTO) 15 % (0-12); NEUTROPHILS # (AUTO) 1.7 10^3/uL (1.8-7.8); NEUTROPHILS % (AUTO) 35 % (42-75); PLATELET COUNT 118 10^3/uL (130-400); WHITE BLOOD COUNT 4.8 10^3/uL (4.3-11.0)
[2021-11-14 00:42] LABS: BACTERIA,URINE MODERATE /HPF; RBC,URINE >100 /HPF; WBC,URINE 50-100 /HPF
[2021-11-14 00:43] LABS: POTASSIUM 3.7 MMOL/L (3.6-5.0)
[2021-11-14 00:44] LABS: CALCIUM 8.1 MG/DL (8.5-10.1)
[2021-11-14 00:48] LABS: CREATININE SERUM 0.83 MG/DL (0.60-1.30)
[2021-11-14] MEDS ORDERED: cefTRIAXone 1 GM PRE-MIX 50 ML IV ONE (01:00)
[2021-11-14] MEDS ORDERED: CIPR500T5 PO (01:12)
== END 2021-11-14 02:02 | disposition home or self-care (01) ==
LOC: EDUNIT# 23:56 → ER 23:58
DX: N30.01 Acute cystitis with hematuria (principal); G47.30 Sleep apnea, unspecified; Z99.89 Dependence on other enabling machines and devices
CPT/HCPCS: 36415; 80048; 81000; 85025; 87077; 87088; 87186

== ENCOUNTER 2021-11-19 03:07 | Emergency (ER) | payer MEDICAID ==
[~2021-11-19 03:07] MED LIST changes: +CIPR500T5 PO
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
[2021-11-19] MEDS ORDERED: MUPI22OI2 TP (03:31)
[2021-11-19] MEDS ORDERED: NITR-65 PO (03:31)
[2021-11-19 04:11] VITALS: BP 100/67
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
== END 2021-11-19 04:11 | disposition home or self-care (01) ==
LOC: EDUNIT# 03:07 → ER 03:09
DX: S20.212A Contusion of left front wall of thorax, initial encounter (principal); S60.811A Abrasion of right wrist, initial encounter; S80.212A Abrasion, left knee, initial encounter; S80.812A Abrasion, left lower leg, initial encounter; G47.30 Sleep apnea, unspecified; G89.29 Other chronic pain; M54.9 Dorsalgia, unspecified; Z87.440 Personal history of urinary (tract) infections; Z86.14 Personal history of Methicillin resistant Staphylococcus aureus infection; Z99.89 Dependence on other enabling machines and devices; Z79.1 Long term (current) use of non-steroidal anti-inflammatories (NSAID); Z79.2 Long term (current) use of antibiotics; V19.9XXA Pedal cyclist (driver) (passenger) injured in unspecified traffic accident, initial encounter; Y93.55 Activity, bike riding
CPT/HCPCS: 71101

== ENCOUNTER 2021-11-21 14:12 | Emergency (ER) | payer MEDICAID ==
[~2021-11-21] VITALS: Ht 177 cm; Wt 68.0 kg
[~2021-11-21 14:12] MED LIST changes: +NITR-65 PO
[2021-11-21 14:16] VITALS: BP 124/80
[2021-11-21] MEDS ORDERED: fentaNYL INJ 100 MCG/2 ML AMP IM ONE (14:45)
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
[2021-11-21] MEDS ORDERED: oxyCODONE/APAP 5/325MG (PERCOCET 5) TABLET PO ONE (16:45)
[2021-11-21] MEDS ORDERED: OXYC5TAB PO (16:46)
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
[2021-11-21] MEDS ORDERED: NITR-65 PO (16:48)
[2021-11-21 17:03] LABS: CLARITY,URINE CLEAR; COLOR,URINE YELLOW; GLUCOSE, URINE (UA) TRACE (NEGATIVE); KETONES,URINE NEGATIVE (NEGATIVE); LEUKOCYTE ESTERASE ,URINE NEGATIVE (NEGATIVE); NITRITE,URINE NEGATIVE (NEGATIVE); PROTEIN,URINE NEGATIVE (NEGATIVE)
[2021-11-21 17:56] LABS: BACTERIA,URINE TRACE /HPF; BILIRUBIN,URINE 1+ (NEGATIVE); CALCIUM OXALATE CRYSTALS,UR LARGE /LPF; HYALINE CASTS, URINE RARE /LPF; SQUAMOUS EPITHELIAL CELL,UR RARE /HPF
== END 2021-11-21 17:32 | disposition home or self-care (01) ==
LOC: EDUNIT# 14:12 → ER 14:13
DX: S32.009D Unspecified fracture of unspecified lumbar vertebra, subsequent encounter for fracture with routine healing (principal); S22.32XD Fracture of one rib, left side, subsequent encounter for fracture with routine healing; N39.0 Urinary tract infection, site not specified; R93.2 Abnormal findings on diagnostic imaging of liver and biliary tract; G47.30 Sleep apnea, unspecified; F17.290 Nicotine dependence, other tobacco product, uncomplicated; Z99.89 Dependence on other enabling machines and devices; V19.9XXD Pedal cyclist (driver) (passenger) injured in unspecified traffic accident, subsequent encounter
CPT/HCPCS: 71250; 74176; 81000; 99283

== ENCOUNTER 2022-04-03 21:53 | Emergency (ER) | payer MEDICAID, OTHER ==
[~2022-04-03] VITALS: Ht 180.3 cm; Wt 68.0 kg
[~2022-04-03 21:53] MED LIST changes: +OXYC5TAB PO
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
[2022-04-03] MEDS ORDERED: PERMETHRIN (ELIMITE) 5% CR 60 GM TUBE TOP ONE (23:15)
[2022-04-03] MEDS ORDERED: LIDOCAINE 2% VISCOUS 15 ML UDC PO ONE (23:15)
[2022-04-03] MEDS ORDERED: CLINDAMYCIN 150 MG (CLEOCIN) CAP PO ONE (23:15)
[2022-04-04 00:22] VITALS: BP 117/69
[2022-04-04 01:10] LABS: CLARITY,URINE CLOUDY; COLOR,URINE DARK YELLOW; GLUCOSE, URINE (UA) NEGATIVE (NEGATIVE); KETONES,URINE NEGATIVE (NEGATIVE); PH,URINE 6.5 (5-9); PROTEIN,URINE TRACE (NEGATIVE)
[2022-04-04 01:11] LABS: AMORPHOUS SEDIMENT,UR MOD AMOR URATES /LPF; BACTERIA,URINE MODERATE /HPF; BILIRUBIN,URINE NEGATIVE (NEGATIVE); CALCIUM OXALATE CRYSTALS,UR FEW /LPF; LEUKOCYTE ESTERASE ,URINE 3+ (NEGATIVE); NITRITE,URINE POSITIVE (NEGATIVE); WBC,URINE 25-50 /HPF
[2022-04-04] MEDS ORDERED: CEPH500T PO (07:31)
== END 2022-04-04 00:22 | disposition home or self-care (01) ==
LOC: EDUNIT# 21:53 → ER 21:55
DX: K08.89 Other specified disorders of teeth and supporting structures (principal); R30.0 Dysuria; R21 Rash and other nonspecific skin eruption; F17.210 Nicotine dependence, cigarettes, uncomplicated; G47.30 Sleep apnea, unspecified; Z99.89 Dependence on other enabling machines and devices; Z28.310 Unvaccinated for COVID-19
CPT/HCPCS: 81000; 87077; 87088; 87186; 99283

== ENCOUNTER 2022-04-13 18:52 | Emergency (ER) | payer OTHER ==
[~2022-04-13] VITALS: Ht 180.3 cm; Wt 71.3 kg
[~2022-04-13 18:52] MED LIST changes: +ALBU8.5H6 IH; +CEPH500T PO; -RT-ALBUINH IH
[2022-04-13 18:56] VITALS: BP 136/85
[2022-04-13] MEDS ORDERED: AUGMENTIN 875 MG TAB (AMOXICILLIN/CLAVULANATE) PO STA (19:12)
[2022-04-13] MEDS ORDERED: AMOX1TAB12 PO (19:12)
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
== END 2022-04-13 19:19 | disposition home or self-care (01) ==
LOC: EDUNIT# 18:52 → ER FS 18:56
DX: K02.9 Dental caries, unspecified (principal); G47.30 Sleep apnea, unspecified; Z88.2 Allergy status to sulfonamides; Z88.6 Allergy status to analgesic agent; Z99.89 Dependence on other enabling machines and devices
CPT/HCPCS: 99283

== ENCOUNTER 2022-08-19 15:13 | Emergency (ER) | payer OTHER ==
[~2022-08-19] VITALS: Ht 170 cm; Wt 71.3 kg
[~2022-08-19 15:13] MED LIST changes: +AMOX1TAB12 PO
--- NOTE | 2022-08-19 15:26 | ED Lower Extremity ---
General Chief Complaint: Lower Extremity Stated Complaint: EDEMA Nursing Triage Note: PT TO [facility] 6 BY [facility] WITH CC OF BI LAT SWELLING FOR ABOUT 5 DAYS. Source: patient Exam Limitations: no limitations History of Present Illness Date Seen by Provider: Aug 19, 2022 Time Seen by Provider: 15:22 Initial Comments Patient is a 72-year-old male with history of hep C who presents ED with bilateral leg pain over the past 2 to 3 days. He report bilateral leg swelling for the past 5 days ago. Started developing severe pain in his calfs bilateral, ankle and feet 2 days ago. Pain is worse with walking. Noted cracking of the skin with clear and purlent drainage. He states this is new with no known history of leg swelling. Denies history of CHF, chronic kidney disease, blood disorder, recent travels or surgeries, history of DVT. Denies taking thing for pain. Was brought to the ED by EMS. Denies symptoms of chest pain, shortness of breath, fever, chills or trauma, decreased urine output, drug use. Allergies and Home Medications Allergies Coded Allergies: ibuprofen (Verified Allergy, Unknown, 07/03/21) acetaminophen (Unverified Adverse Reaction, Mild, GI BLEED, N/V, 10/14/10) Sulfa (Sulfonamide Antibiotics) (Unverified Adverse Reaction, Unknown, GI BLEED, N/V, 04/08/15) aspirin (Unverified Adverse Reaction, Unknown, GI BLEED, N/V, 04/08/15) Patient Home Medication List Home Medication List Reviewed: Yes Albuterol Sulfate (Ventolin Hfa) 1 Puff Puff, 2 PUFF IH Q4H, (Reported) Entered as Reported by: NUBIA VALDES on 11/23/20 0105 Albuterol Sulfate (Ventolin Hfa) 1 Puff Puff, 2 PUFF IH Q4H Prescribed by: ANTOINE ZHANG on 11/23/20 0306 Amoxicillin/Potassium Clav (Amox Tr-K Clv 875-125 mg Tab) 875 Mg-125 Mg Tablet, 1 EACH PO BID Prescribed by: JAKOB PA on 04/13/22 191 Benzonatate (Tessalon Perles) 100 Mg Capsule, 200 MG PO TID Prescribed by: ANTOINE ZHANG on 11/23/20 025 Cephalexin (Cephalexin) 500 Mg Tablet, 500 MG PO QID Prescribed by: STEPHANIE LAYNE on 04/04/22 0731 Cephalexin (Cephalexin) 500 Mg Tablet, 500 MG PO QID Prescribed by: MARISEL ROES on 08/19/22 1641 Ciprofloxacin HCl (Ciprofloxacin HCl) 500 Mg Tablet, 500 MG PO BID Prescribed by: PENNY ONEILL on 11/14/21 0112 Doxycycline Hyclate (Doxycycline Hyclate) 100 Mg Tablet, 100 MG PO BID Prescribed by: ANTOINE ZHANG on 11/23/20 0252 Doxycycline Monohydrate (Doxycycline Monohydrate) 100 Mg Tablet, 100 MG PO BID Prescribed by: MARISEL ROSE on 08/19/22 1639 Furosemide (Lasix) 40 Mg Tablet, 40 MG PO DAILY Prescribed by: MARISEL ROSE on 08/19/22 1633 Guaifenesin/Dextromethorphan (Mucinex Dm ER 1,200-60 mg Tab) 1 Each Tbmp.12hr, 1 EACH PO BID Prescribed by: ANTOINE ZHANG on 11/23/20 025 Methylprednisolone (Medrol) 4 Mg Tab.ds.pk, 4 MG PO UD Prescribed by: ANTOINE ZHANG on 11/23/20 025 Mupirocin (Mupirocin) 2 % Oint...g., 22 GM TP BID Prescribed by: ANTOINE ZHANG on 11/19/21 033 Nitrofurantoin Monohyd/M-Cryst (Macrobid 100 mg Capsule) 100 Mg Capsule, 1 TAB PO BID Prescribed by: ANTOINE ZHANG on 11/19/21 0331 Nitrofurantoin Monohyd/M-Cryst (Macrobid 100 mg Capsule) 100 Mg Capsule, 1 TAB PO BID Prescribed by: STEPHANIE LAYNE on 11/21/21 1648 Ondansetron (Ondansetron Odt) 4 Mg Tab.rapdis, 4 MG PO Q8H PRN for nausea Prescribed by: PENNY ONEILL on 07/03/21 1720 Oxycodone HCl (Oxycodone HCl) 5 Mg Tablet, 5 MG PO Q4H PRN for PAIN-MODERATE (5- 7) Prescribed by: STEPHANIE LAYNE on 11/21/21 1647 Pantoprazole Sodium (Pantoprazole Sodium) 20 Mg Tablet.dr, 20 MG PO DAILY Prescribed by: PENNY ONEILL on 07/03/21 1720 Pantoprazole Sodium (Protonix) 40 Mg Tablet.dr, 40 MG PO DAILY Prescribed by: STEPHANIE LAYNE on 09/20/21 1802 Potassium Chloride (Potassium Chloride) 20 Meq Tablet.er, 20 MEQ PO DAILY Prescribed by: MARISEL ROSE on 08/19/22 1635 Review of Systems Constitutional: No chills, No diaphoresis, No fever, No malaise EENTM: No hearing loss, No ear pain, No blurred vision Respiratory: No cough, No dyspnea on exertion Cardiovascular: No chest pain Gastrointestinal: No abdominal pain, No diarrhea, No nausea, No vomiting Genitourinary: No decreased output, No discharge Musculoskeletal: No back pain; joint pain, muscle pain, other (leg swelling) Skin: change in color, other (Bilateral leg cracking skin cracking ) Past Nmvapwb-Usjqnq-Ayqtgm Hx Patient Social History Tobacco Use?: Yes Tobacco type used: Cigarettes Substance use?: No Alcohol Use?: No Immunizations Up To Date Tetanus Booster (TDap): Less than 5yrs Seasonal Allergies Seasonal Allergies: No Past Medical History Surgery/Hospitalization HX: copd, seizures, anxiety and depression Surgeries: Yes (CYSTOSCOPY) Abdominal, Bladder Surgery Respiratory: Yes Asthma, Sleep Apnea, COPD Currently Using CPAP: Yes Cardiac: Yes Hypertension Neurological: Yes Concussion, Seizure Disorder, Traumatic Brain Injury Reproductive Disorders: Yes (E.D.) Sexually Transmitted Disease: No HIV/AIDS: No Genitourinary: Yes Kidney Stones Gastrointestinal: Yes (HEPATITIS C-NO TREATMENT, Bowel obstruction. ) Obstructive Bowel, Hepatitis Musculoskeletal: Yes (Injured back 1968) Degenerate Disk Disease, Scoliosis, Chronic Back Pain, Fractures Endocrine: No HEENT: No Cancer: No Psychosocial: Yes (POLYSUBSTANCE ABUSE) Anxiety, PTSD, Depression Integumentary: No Blood Disorders: No Family Medical History No Pertinent Family Hx SOCIAL HISTORY: -ETOH--PT DENIES, BUT HAS KNOWN HISTORY OF ETOH ABUSE -DRUGS--PT DENIES BUT HAS TESTED + FOR AMPHETAMINES/METHAMPHETAMINES AND THC -SMOKES AT LEAST 1/2 PPD PT IS WELL KNOWN TO STAFF WITH HISTORY OF EXTENSIVE POLYSUBSTANCE ABUSE. 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 LONG HISTORY OF NON-COMPLIANCE Physical Exam Vital Signs Vital Signs - First Documented 08/19/22 15:15 Temp 36.4 Pulse 100 Resp 22 B/P (MAP) 138/64 (88) Pulse Ox 99 O2 Delivery Room Air Capillary Refill : Less Than 3 Seconds Height, Weight, BMI Height: 5'11.00" Weight: 160lbs. 0.0oz. 72.799999sg; 24.00 BMI Method:Stated General Appearance: WD/WN, no apparent distress HEENT: PERRL/EOMI, normal ENT inspection, TMs normal, pharynx normal Neck: non-tender, full range of motion, supple, normal inspection Cardiovascular: regular rate, rhythm, no edema, no gallop, no JVD Respiratory: chest non-tender, lungs clear, normal breath sounds, no respiratory distress, no accessory muscle use Gastrointestinal: normal bowel sounds, non tender, soft, no organomegaly Back: normal inspection, no CVA tenderness Legs: bilateral leg pain, bilateral leg soft tissue tenderness, bilateral leg swelling, bilateral leg other (Cracking of the skin bilateral. +2 pitting edema. Dorsalis pedis +2, posterior tibialis +2, no ulcers) Ankles: bilateral ankle pain, bilateral ankle soft tissue tenderness, bilateral ankle swelling Feet: bilateral foot pain, bilateral foot soft tissue tenderness, bilateral foot swelling Neurologic/Psychiatric: varnish inspector II-XII nml as tested, no motor/sensory deficits, alert, normal mood/affect, oriented x 3 Skin: other (Swelling bilateral +2 edema lower extremity from the knee bilateral to the feet.) Progress/Results/Core Measures Results/Orders Lab Results Laboratory Tests Test 08/19/22 15:20 Range/Units White Blood Count 4.9 4.3-11.0 10^3/uL Red Blood Count 2.92 L 4.30-5.52 10^6/uL Hemoglobin 10.6 L 13.3-17.7 g/dL Hematocrit 30 L 40-54 % Mean Corpuscular Volume 103 H 80-99 fL Mean Corpuscular Hemoglobin 36 H 25-34 pg Mean Corpuscular Hemoglobin Concent 35 32-36 g/dL Red Cell Distribution Width 14.6 H 10.0-14.5 % Platelet Count 96 L 130-400 10^3/uL Mean Platelet Volume 10.7 9.0-12.2 fL Immature Granulocyte % (Auto) 0 % Neutrophils (%) (Auto) 48 42-75 % Lymphocytes (%) (Auto) 31 12-44 % Monocytes (%) (Auto) 16 H 0-12 % Eosinophils (%) (Auto) 4 0-10 % Basophils (%) (Auto) 1 0-10 % Neutrophils # (Auto) 2.4 1.8-7.8 10^3/uL Lymphocytes # (Auto) 1.5 1.0-4.0 10^3/uL Monocytes # (Auto) 0.8 0.0-1.0 10^3/uL Eosinophils # (Auto) 0.2 0.0-0.3 10^3/uL Basophils # (Auto) 0.1 0.0-0.1 10^3/uL Immature Granulocyte # (Auto) 0.0 0.0-0.1 10^3/uL Percent Immature Platelet Fraction 5.6 0.0-7.6 % Prothrombin Time 15.3 H 12.2-14.7 SEC INR Comment 1.2 0.8-1.4 Activated Partial Thromboplast Time 36 H 24-35 SEC Sodium Level 138 135-145 MMOL/L Potassium Level 3.3 L 3.6-5.0 MMOL/L Chloride Level 103 98-107 MMOL/L Carbon Dioxide Level 27 21-32 MMOL/L Anion Gap 8 5-14 MMOL/L Blood Urea Nitrogen 10 7-18 MG/DL Creatinine 0.78 0.60-1.30 MG/DL Estimat Glomerular Filtration Rate 95 BUN/Creatinine Ratio 13 Glucose Level 112 H 70-105 MG/DL Calcium Level 7.6 L 8.5-10.1 MG/DL Corrected Calcium 8.9 8.5-10.1 MG/DL Total Bilirubin 3.3 H 0.1-1.0 MG/DL Aspartate Amino Transf (AST/SGOT) 105 H 5-34 U/L Alanine Aminotransferase (ALT/SGPT) 57 H 0-55 U/L Alkaline Phosphatase 149 H 40-136 U/L B-Type Natriuretic Peptide 74.0 <100.0 PG/ML Total Protein 6.8 6.4-8.2 GM/DL Albumin 2.4 L 3.2-4.5 GM/DL Smear Scan YES My Orders Orders - JAKOB PEREZ Cbc With Automated Diff (08/19/22 15:20) Comprehensive Metabolic Panel (08/19/22 15:20) Partial Thromboplastin Time (08/19/22 15:20) Protime With Inr (08/19/22 15:20) Us Venous Lower Ext Patricio (08/19/22 15:20) Bnp [place] (08/19/22 15:20) Fentanyl Inj (Sublimaze Injection) (08/19/22 16:13) Potassium Chloride (Tablet) (K Dur Table (08/19/22 16:30) Medications Given in ED Vital Signs/I&O 08/19/22 08/19/22 15:15 16:47 Temp 36.4 36.4 Pulse 100 95 Resp 22 22 B/P (MAP) 138/64 (88) 117/65 Pulse Ox 99 99 O2 Delivery Room Air Room Air Blood Pressure Mean: 88 Departure Communication (PCP) Reviewed previous ER visits, lab testing, H&P's, diagnosis. Patient with a history of alcohol abuse, substance abuse, cirrhosis who is presenting to the ED for bilateral leg swelling and pain. Swelling over the past 5 days with increasing pain over the past 2 days. Patient with +2 pitting edema bilateral. Dorsalis pedis +2 with warm extremities. No ulcerations. Normal range of motion of the ankle and knee. Severe tenderness on palpation to the calf. Weeping bilateral lower legs with cracking and bleeding skin. Due to patient's current presentation with a history of cirrhosis, CBC, CMP, BNP, urinalysis was ordered. CBC showed normal white blood count. Chronic anemia at 10. Potassium 3.3. Chronic elevated liver enzymes, AST 105, ALT 57, bilirubin 3.3. Bilirubin slightly increased from previous visit. Patient has no abdominal pain, chest pain or shortness of breath. Due to the severe pain and lower extremity ultrasound was ordered to rule out DVT. Differential diagnosis of DVT, cellulitis of the extremities, edema secondary to cirrhosis, CHF. Ultrasound was negative for DVT. Warmth and redness noted to the lower extremities suggesting secondary cellulitis. Patient has a MELD score of 13. Denies seeing a deli manager. Patient was given a dose of pain medication. Patient vital signs were stable. Concerning for edema secondary to cirrhosis with secondary cellulitis. Patient was eagerly to leave. He states his ride was here. Discussed my concern for worsening liver function which potentially may be a result of the bilateral lower extremity edema. Cleaned the lower extremities with normal saline and Shur-Clens. Few of the weeping lesions were covered with gauze. Discussed transfer to facility with hepatology. He refused. He states he will follow-up with his primary care physician. Will discharge with doxycycline and Keflex to help cover strep for concern for secondary cellulitis of the lower extremities. Feel that patient would benefit with some IV antibiotics and diuretic at this time. Since he wants to be discharge I will provide a few days worth of Lasix 40 mg. Replenished his potassium with 20 ml equivalent of potassium here. Will discharge with potassium for 3 days. Likely will need to be on some form of diuretic such as Lasix or spironolactone if this continues worsening. discussed recheck of his lab work with primary care physician 2 to 3 days. If worsening swelling to return back to ED. Discussed salt diet and elevate legs at night. If any chest pain, fever, worsening swelling, shortness of breath to return back to ED patient denied alcohol. Refused urinalysis. Impression Primary Impression: Leg swelling Disposition: HOME, SELF-CARE Condition: Stable Departure-Patient Inst. Decision time for Depature: 16:28 Referrals: LUDIN PATTERSON DO (PCP) Primary Care Physician [facility] (Family) Primary Care Physician Patient Instructions: Cirrhosis, Diet for Cirrhosis Add. Discharge Instructions: Recommend following up with your primary care physician in the next 2 to 3 days to discuss further treatment with Lasix and/or spironolactone for the leg swelling. Recommend follow-up with deli manager. Discussed this with your primary care physician All discharge instructions reviewed with patient and/or family. Voiced understanding. Scripts Cephalexin (Cephalexin) 500 Mg Tablet 500 MG PO QID for 7 Days, #28 TAB Prov: JAKOB PEREZ 08/19/22 Doxycycline Monohydrate (Doxycycline Monohydrate) 100 Mg Tablet 100 MG PO BID for 10 Days, #20 TAB Prov: JAKOB PEREZ 08/19/22 Potassium Chloride (Potassium Chloride) 20 Meq Tablet.er 20 MEQ PO DAILY for 3 Days, #3 TAB Prov: JAKOB PEREZ 08/19/22 Furosemide (Lasix) 40 Mg Tablet 40 MG PO DAILY, #3 TAB Prov: JAKOB PEREZ 08/19/22 JAKOB PEREZ Aug 19, 2022 15:26
[2022-08-19 15:27] LABS: BASOPHILS # (AUTO) 0.1 10^3/uL (0.0-0.1); BASOPHILS % (AUTO) 1 % (0-10); MEAN PLATELET VOLUME 10.7 fL (9.0-12.2)
[2022-08-19 15:29] LABS: EOSINOPHILS # (AUTO) 0.2 10^3/uL (0.0-0.3); EOSINOPHILS % (AUTO) 4 % (0-10); HEMATOCRIT 30 % (40-54); HEMOGLOBIN 10.6 g/dL (13.3-17.7); LYMPHOCYTES # (AUTO) 1.5 10^3/uL (1.0-4.0); LYMPHOCYTES % (AUTO) 31 % (12-44); MEAN CORPUSCULAR HEMOGLOBIN 36 pg (25-34); MEAN CORPUSCULAR HGB CONC 35 g/dL (32-36); MEAN CORPUSCULAR VOLUME 103 fL (80-99); MONOCYTES # (AUTO) 0.8 10^3/uL (0.0-1.0); MONOCYTES % (AUTO) 16 % (0-12); NEUTROPHILS # (AUTO) 2.4 10^3/uL (1.8-7.8); NEUTROPHILS % (AUTO) 48 % (42-75); PLATELET COUNT 96 10^3/uL (130-400); WHITE BLOOD COUNT 4.9 10^3/uL (4.3-11.0)
[2022-08-19 15:39] LABS: ALBUMIN 2.4 GM/DL (3.2-4.5); POTASSIUM 3.3 MMOL/L (3.6-5.0)
[2022-08-19 15:40] LABS: CALCIUM 7.6 MG/DL (8.5-10.1); SMEAR SCAN COMMENT YES
[2022-08-19 15:41] LABS: TOTAL PROTEIN 6.8 GM/DL (6.4-8.2)
[2022-08-19 15:43] LABS: BILIRUBIN,TOTAL 3.3 MG/DL (0.1-1.0); INR 1.2 (0.8-1.4); PROTHROMBIN TIME PATIENT 15.3 SEC (12.2-14.7)
[2022-08-19 15:45] LABS: CREATININE SERUM 0.78 MG/DL (0.60-1.30)
[2022-08-19] MEDS ORDERED: fentaNYL INJ 100 MCG/2 ML AMP IVP STA (16:13)
--- NOTE | 2022-08-19 16:25 | Diagnostic Imaging Report ---
PROCEDURE: US Venous Lower Ext Patricio. INDICATION: Bilateral lower extremity edema and pain TECHNIQUE: Multiple real-time grayscale images were obtained over the lower extremities in various projections, bilaterally. Additional duplex Doppler and color Doppler images were also obtained. CORRELATION STUDY: None FINDINGS: Color and grayscale sonographic images demonstrate no intraluminal defect within the visualized portion of the common femoral, superficial femoral and/or popliteal veins to suggest thrombus formation. These vessels demonstrate normal response to compression and augmentation. No soft tissue fluid collection. IMPRESSION: 1. Negative for deep venous thrombosis of either leg. Dictated by: Dictated on workstation # [id number]
[2022-08-19] MEDS ORDERED: KCL 20 MEQ TAB (K-DUR) PO ONE (16:30)
[2022-08-19] MEDS ORDERED: FURO-124 PO (16:33)
[2022-08-19] MEDS ORDERED: POTA-51 PO (16:35)
[2022-08-19] MEDS ORDERED: DOXY100T31 PO (16:39)
[2022-08-19] MEDS ORDERED: CEPH500T PO (16:41)
[2022-08-19 16:47] VITALS: BP 117/65
== END 2022-08-19 16:47 | disposition home or self-care (01) ==
LOC: EDUNIT# 15:13 → ER 15:14
DX: R60.0 Localized edema (principal); E87.1 Hypo-osmolality and hyponatremia; R74.01 Elevation of levels of liver transaminase levels; G47.30 Sleep apnea, unspecified; F17.210 Nicotine dependence, cigarettes, uncomplicated; Z99.89 Dependence on other enabling machines and devices; Z28.310 Unvaccinated for COVID-19
CPT/HCPCS: 36415; 80053; 83880; 85025; 85610; 85730; 93970

== ENCOUNTER 2022-09-30 16:05 | Inpatient (IN) | payer OTHER, MEDICAID ==
[~2022-09-30] VITALS: Ht 180 cm; Wt 72.5 kg
[~2022-09-30 16:05] MED LIST changes: +FURO-124 PO; +POTA-51 PO
[2022-09-30] MEDS ORDERED: ONDANSETRON 4 MG/2 ML (SDV) Z0FRAN IVP ONE (16:30)
[2022-09-30] MEDS ORDERED: fentaNYL INJ 100 MCG/2 ML AMP IVP ONE (16:30)
--- NOTE | 2022-09-30 16:33 | ED Abdominal Pain ---
General Chief Complaint: Abdominal/GI Problems Stated Complaint: ABD PAIN Nursing Triage Note: PT TO [facility] BY [facility] WITH CC OF ABD PAIN FOR A COUPLE WEEKS, SWELLING OVER THE LAST 3-4 DAYS, HX OF LIVER DISEASE Source of Information: Patient Exam Limitations: No Limitations History of Present Illness Date Seen by Provider: Sep 30, 2022 Time Seen by Provider: 16:08 Initial Comments 72-year-old male presents to the ED via EMS with complaints of swelling in his abdomen which started over the last week. Reports he has "a liver disorder." He is also complaining of pain in his lower back at the location of the previous injury which occurred 1 year ago. He reports midsternal chest pain, jaw pain, left shoulder pain which started 2 days ago and is intermittent and sporadic. He denies swelling in his legs. He reports feeling short of breath, states he has COPD. He also complains of nausea. Denies fevers, vomiting, diarrhea, constipation. Last bowel movement was this morning and normal. He is uncertain if he has liver cirrhosis, has never been told he has ascites. Denies ever having a paracentesis. Denies alcohol use. States he has never been a daily drinker. Reports he had hepatitis C in the past and was treated for it. Believes he no longer has it. Allergies and Home Medications Allergies Coded Allergies: lisinopril (Verified Allergy, Severe, Angioedema, 10/01/22) ibuprofen (Verified Allergy, Unknown, 07/03/21) acetaminophen (Unverified Adverse Reaction, Mild, GI BLEED, N/V, 10/14/10) Sulfa (Sulfonamide Antibiotics) (Unverified Adverse Reaction, Unknown, GI BLEED, N/V, 04/08/15) aspirin (Unverified Adverse Reaction, Unknown, GI BLEED, N/V, 04/08/15) Patient Home Medication List Home Medication List Reviewed: Yes Albuterol Sulfate (Ventolin Hfa) 1 Puff Puff, 2 PUFF INH Q4H PRN for SHORTNESS OF BREATH, (Reported) Entered as Reported by: LUDIN TATE on 10/01/22 1550 Last Action: Reviewed Alprazolam (Alprazolam) 1 Mg Tablet, 1 MG PO DAILY PRN for ANXIETY, (Reported) Entered as Reported by: LUDIN TATE on 10/01/22 1550 Last Action: Reviewed Discontinued Medications Albuterol Sulfate (Ventolin Hfa) 1 Puff Puff, 2 PUFF IH Q4H, (Reported) Discontinued Reason: No Longer Taking Entered as Reported by: NUBIA VALDES on 11/23/20 0105 Last Action: Discontinued Albuterol Sulfate (Ventolin Hfa) 1 Puff Puff, 2 PUFF IH Q4H Discontinued Reason: No Longer Taking Prescribed by: ANTOINE ZHANG on 11/23/20 0306 Last Action: Discontinued Amoxicillin/Potassium Clav (Amox Tr-K Clv 875-125 mg Tab) 875 Mg-125 Mg Tablet, 1 EACH PO BID Discontinued Reason: No Longer Taking Prescribed by: JAKOB PA on 04/13/22 191 Last Action: Discontinued Benzonatate (Tessalon Perles) 100 Mg Capsule, 200 MG PO TID Discontinued Reason: No Longer Taking Prescribed by: ANTOINE ZHANG on 11/23/20 025 Last Action: Discontinued Cephalexin (Cephalexin) 500 Mg Tablet, 500 MG PO QID Discontinued Reason: No Longer Taking Prescribed by: STEPHANIE LAYNE on 04/04/22 0731 Last Action: Discontinued Cephalexin (Cephalexin) 500 Mg Tablet, 500 MG PO QID Discontinued Reason: No Longer Taking Prescribed by: MARISEL ROSE on 08/19/22 1641 Last Action: Discontinued Ciprofloxacin HCl (Ciprofloxacin HCl) 500 Mg Tablet, 500 MG PO BID Discontinued Reason: No Longer Taking Prescribed by: PENNY ONEILL on 11/14/21 0112 Last Action: Discontinued Doxycycline Hyclate (Doxycycline Hyclate) 100 Mg Tablet, 100 MG PO BID Discontinued Reason: No Longer Taking Prescribed by: ANTOINE ZHANG on 11/23/20251 Last Action: Discontinued Doxycycline Monohydrate (Doxycycline Monohydrate) 100 Mg Tablet, 100 MG PO BID Discontinued Reason: No Longer Taking Prescribed by: MARISEL ROSE on 08/19/22 1639 Last Action: Discontinued Furosemide (Lasix) 40 Mg Tablet, 40 MG PO DAILY Discontinued Reason: No Longer Taking Prescribed by: MARISEL ROSE on 08/19/22 1633 Last Action: Discontinued Guaifenesin/Dextromethorphan (Mucinex Dm ER 1,200-60 mg Tab) 1 Each Tbmp.12hr, 1 EACH PO BID Discontinued Reason: No Longer Taking Prescribed by: ANTOINE ZHANG on 11/23/20251 Last Action: Discontinued Methylprednisolone (Medrol) 4 Mg Tab.ds.pk, 4 MG PO UD Discontinued Reason: No Longer Taking Prescribed by: ANTOINE ZHANG on 11/23/20251 Last Action: Discontinued Mupirocin (Mupirocin) 2 % Oint...g., 22 GM TP BID Discontinued Reason: No Longer Taking Prescribed by: ANTOINE ZHANG on 11/19/21330 Last Action: Discontinued Nitrofurantoin Monohyd/M-Cryst (Macrobid 100 mg Capsule) 100 Mg Capsule, 1 TAB PO BID Discontinued Reason: No Longer Taking Prescribed by: ANTOINE ZHANG on 11/19/21330 Last Action: Discontinued Nitrofurantoin Monohyd/M-Cryst (Macrobid 100 mg Capsule) 100 Mg Capsule, 1 TAB PO BID Discontinued Reason: No Longer Taking Prescribed by: STEPHANIE LAYNE on 11/21/21 164 Last Action: Discontinued Ondansetron (Ondansetron Odt) 4 Mg Tab.rapdis, 4 MG PO Q8H PRN for nausea Discontinued Reason: No Longer Taking Prescribed by: PENNY ONEILL on 07/03/21 172 Last Action: Discontinued Oxycodone HCl (Oxycodone HCl) 5 Mg Tablet, 5 MG PO Q4H PRN for PAIN-MODERATE (5-7) Discontinued Reason: No Longer Taking Prescribed by: STEPHANIE LAYNE on 11/21/21 1647 Last Action: Discontinued Pantoprazole Sodium (Pantoprazole Sodium) 20 Mg Tablet.dr, 20 MG PO DAILY Discontinued Reason: No Longer Taking Prescribed by: PENNY ONEILL on 07/03/21 1720 Last Action: Discontinued Pantoprazole Sodium (Protonix) 40 Mg Tablet.dr, 40 MG PO DAILY Discontinued Reason: No Longer Taking Prescribed by: STEPHANIE LAYNE on 09/20/21 1802 Last Action: Discontinued Potassium Chloride (Potassium Chloride) 20 Meq Tablet.er, 20 MEQ PO DAILY Discontinued Reason: No Longer Taking Prescribed by: MARISEL ROSE on 08/19/22 1635 Last Action: Discontinued Review of Systems Review of Systems Constitutional: see HPI Past Ortqnot-Wmkero-Htzozm Hx Patient Social History Tobacco Use?: Yes Tobacco type used: Cigarettes Smoking Status: Current Everyday Smoker Substance use?: No Alcohol Use?: No Immunizations Up To Date Tetanus Booster (TDap): Less than 5yrs Seasonal Allergies Seasonal Allergies: No Past Medical History Surgery/Hospitalization HX: copd, seizures, anxiety and depression, PTSD Surgeries: Yes (CYSTOSCOPY) Abdominal, Bladder Surgery Respiratory: Yes Asthma, Sleep Apnea, COPD Currently Using CPAP: Yes Cardiac: Yes Hypertension Neurological: Yes Concussion, Seizure Disorder, Traumatic Brain Injury Reproductive Disorders: Yes (E.D.) Sexually Transmitted Disease: No HIV/AIDS: No Genitourinary: Yes Kidney Stones Gastrointestinal: Yes (HEPATITIS C-NO TREATMENT, Bowel obstruction. ) Obstructive Bowel, Hepatitis Musculoskeletal: Yes (Injured back 1969) Degenerate Disk Disease, Scoliosis, Chronic Back Pain, Fractures Endocrine: No HEENT: No Cancer: No Psychosocial: Yes (POLYSUBSTANCE ABUSE) Anxiety, PTSD, Depression Integumentary: No Blood Disorders: No Family Medical History No Pertinent Family Hx SOCIAL HISTORY: -ETOH--PT DENIES, BUT HAS KNOWN HISTORY OF ETOH ABUSE -DRUGS--PT DENIES BUT HAS TESTED + FOR AMPHETAMINES/METHAMPHETAMINES AND THC -SMOKES AT LEAST 1/2 PPD PT IS WELL KNOWN TO STAFF WITH HISTORY OF EXTENSIVE POLYSUBSTANCE ABUSE. 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 LONG HISTORY OF NON-COMPLIANCE Physical Exam Vital Signs Vital Signs - First Documented 09/30/22 16:10 Temp 36.4 Pulse 83 Resp 22 B/P (MAP) 189/117 (141) Pulse Ox 98 O2 Delivery Room Air Capillary Refill : Less Than 3 Seconds Height/Weight/BMI Height: 5'11.00" Weight: 160lbs. 0.0oz. 72.325816mo; 20.00 BMI Method:Stated General Appearance: WD/WN, mild distress Neck: supple, normal inspection Respiratory: lungs clear, normal breath sounds, no respiratory distress, no accessory muscle use Cardiovascular: regular rate, rhythm, no edema, no gallop, no JVD, no murmur Gastrointestinal: normal bowel sounds, distended (Abdomen feels slightly firm), tenderness (Generalized) Extremities: normal range of motion, normal inspection Neurologic/Psychiatric: alert, normal mood/affect Skin: normal color, warm/dry Progress/Results/Core Measures Results/Orders Lab Results Laboratory Tests Test 09/30/22 16:25 09/30/22 18:37 Range/Units White Blood Count 4.0 L 4.3-11.0 10^3/uL Red Blood Count 3.27 L 4.30-5.52 10^6/uL Hemoglobin 11.7 L 13.3-17.7 g/dL Hematocrit 34 L 40-54 % Mean Corpuscular Volume 103 H 80-99 fL Mean Corpuscular Hemoglobin 36 H 25-34 pg Mean Corpuscular Hemoglobin Concent 35 32-36 g/dL Red Cell Distribution Width 15.0 H 10.0-14.5 % Platelet Count 97 L 130-400 10^3/uL Mean Platelet Volume 11.1 9.0-12.2 fL Immature Granulocyte % (Auto) 0 % Neutrophils (%) (Auto) 45 42-75 % Lymphocytes (%) (Auto) 36 12-44 % Monocytes (%) (Auto) 12 0-12 % Eosinophils (%) (Auto) 5 0-10 % Basophils (%) (Auto) 2 0-10 % Neutrophils # (Auto) 1.8 1.8-7.8 10^3/uL Lymphocytes # (Auto) 1.4 1.0-4.0 10^3/uL Monocytes # (Auto) 0.5 0.0-1.0 10^3/uL Eosinophils # (Auto) 0.2 0.0-0.3 10^3/uL Basophils # (Auto) 0.1 0.0-0.1 10^3/uL Immature Granulocyte # (Auto) 0.0 0.0-0.1 10^3/uL Percent Immature Platelet Fraction 5.1 0.0-7.6 % Prothrombin Time 15.0 H 12.2-14.7 SEC INR Comment 1.1 0.8-1.4 Activated Partial Thromboplast Time 35 24-35 SEC Sodium Level 136 135-145 MMOL/L Potassium Level 3.8 3.6-5.0 MMOL/L Chloride Level 107 98-107 MMOL/L Carbon Dioxide Level 26 21-32 MMOL/L Anion Gap 3 L 5-14 MMOL/L Blood Urea Nitrogen 9 7-18 MG/DL Creatinine 0.85 0.60-1.30 MG/DL Estimat Glomerular Filtration Rate 93 BUN/Creatinine Ratio 11 Glucose Level 108 H 70-105 MG/DL Calcium Level 7.9 L 8.5-10.1 MG/DL Corrected Calcium 9.3 8.5-10.1 MG/DL Magnesium Level 1.8 1.6-2.4 MG/DL Total Bilirubin 2.6 H 0.1-1.0 MG/DL Aspartate Amino Transf (AST/SGOT) 93 H 5-34 U/L Alanine Aminotransferase (ALT/SGPT) 51 0-55 U/L Alkaline Phosphatase 201 H 40-136 U/L Troponin I 0.037 H <0.028 NG/ML B-Type Natriuretic Peptide 59.1 <100.0 PG/ML Total Protein 8.0 6.4-8.2 GM/DL Albumin 2.2 L 3.2-4.5 GM/DL Amylase Level 114 25-125 U/L Lipase 64 8-78 U/L Urine Color YELLOW Urine Clarity CLEAR Urine pH 6.5 5-9 Urine Specific [place] 1.010 L 1.016-1.022 Urine Protein NEGATIVE NEGATIVE Urine Glucose (UA) NEGATIVE NEGATIVE Urine Ketones NEGATIVE NEGATIVE Urine Nitrite NEGATIVE NEGATIVE Urine Bilirubin NEGATIVE NEGATIVE Urine Urobilinogen 2.0 < = 1.0 MG/DL Urine Leukocyte Esterase NEGATIVE NEGATIVE Urine RBC (Auto) 1+ H NEGATIVE Urine RBC 50-100 H /HPF Urine WBC NONE /HPF Urine Crystals PRESENT H /LPF Urine Calcium Oxalate Crystals FEW H /LPF Urine Bacteria NEGATIVE /HPF Urine Casts PRESENT /LPF Urine Hyaline Casts 0-2 H /LPF Urine Mucus MODERATE H /LPF Urine Culture Indicated NO My Orders Orders - ELBA HERNANDEZ APRN Ua Culture If Indicated (09/30/22 16:08) Comprehensive Metabolic Panel (09/30/22 16:22) Lipase (09/30/22 16:22) Amylase (09/30/22 16:22) Ed Iv/Invasive Line Start (09/30/22 16:22) Cbc With Automated Diff (09/30/22 16:22) Magnesium (09/30/22 16:22) Chest 1 View, Ap/Pa Only (09/30/22 16:22) Ekg Tracing (09/30/22 16:22) Protime With Inr (09/30/22 16:22) Partial Thromboplastin Time (09/30/22 16:22) Monitor-Rhythm Ecg Trace Only (09/30/22 16:22) Bnp [place] (09/30/22 16:22) Troponin I Elie (09/30/22 16:22) Fentanyl Inj (Sublimaze Injection) (09/30/22 16:30) Ondansetron Injection (Zofran Injectio (09/30/22 16:30) Ct Chest/Abdomen/Pelvis W (09/30/22 16:56) Iohexol Injection (Omnipaque 350 Mg/Ml 1 (09/30/22 17:00) Ns (Ivpb) (Sodium Chloride 0.9% Ivpb Bag (09/30/22 17:00) Clopidogrel Tablet (Plavix Tablet) (09/30/22 18:15) Metoprolol Succinate (Xl) Tab (Toprol Xl (09/30/22 18:15) Ed Admission (Communication) (09/30/22 18:15) Medications Given in ED Vital Signs/I&O 09/30/22 09/30/22 16:10 16:40 Temp 36.4 36.4 Pulse 83 Resp 22 B/P (MAP) 189/117 (141) Pulse Ox 98 O2 Delivery Room Air Blood Pressure Mean: 141 Progress Progress Note : Time: 16:30 Progress Note Patient seen and evaluated, resting in bed, mild distress due to pain. Patient seems to be having intermittent pain in random areas. He will wince, when asked where his pain is, sometimes he says his shoulder,sometimes he says his abdomen. Based on exam and symptoms, work-up initiated including CBC, CMP, magnesium, troponin, BNP, amylase, lipase, UA, CT abdomen/pelvis, EKG, chest x-ray. Fe ntanyl and Zofran ordered. 1810 Labs, x-ray, and CT reviewed. CBC shows pancytopenia, WBC is low 4.0, RBCs low 3.27, hemoglobin low 11.7, hematocrit low 34, MCV elevated 103, platelets low at 97. CMP shows elevated AST 93, elevated alk phosphate 201, decreased albumin 2.2. Magnesium normal 1.8. Troponin elevated 0.037. BNP normal 59.1. PT slightly elevated 15.0. Chest x-ray shows nonspecific bibasilar airspace consolidation which could be pleural effusion, infiltrate or atelectasis. X-ray shows elevation of the right hemodynamically. CT of the chest and abdomen shows large volume abdominal and pelvic ascites, cirrhosis and gastroesophageal varices, small right and trace left pleural effusion with right lower lobe consolidation which could be atelectasis or developing pneumonia, and advanced your thoracic and lumbar degenerative disc disease. Results discussed with patient. I spoke with Dr. Mak, cardiology, who recommends admission with Plavix 150 mg noon and 75 mg daily as well as 100 mg of metoprolol XR now and daily. Spoke with Dr. Vance, hospitalist, regarding admission. She agrees with the plan and agrees with admission. She will consult surgery regarding ascites if she determines the need for a surgery consult. She asked that I place bridge orders. Initial ECG Impression Date: Sep 30, 2022 Initial ECG Impression Time: 16:40 Initial ECG Rate: 84 Initial ECG Rhythm: Normal Sinus Initial ECG Intervals: QT (QTc slightly elevated 489) Initial ECG Impression: Nonspecific Changes Initial ECG Comparisson: Changed Comment EKG appears improved from previous, previous had T wave inversion in several leads, this EKG shows no T wave inversion. Diagnostic Imaging Diagonstic Imaging: Xray Plain Films/CT/US/NM/MRI: chest Comments [facility], [place] NAME: [facility] REC#: [id number] PT STATUS: REG ER : 1950 PHYSICIAN: ELBA HERNANDEZ APRN ADMIT DATE: 09/30/22/ER Signed Date of Exam:09/30/22 CHEST 1 VIEW, AP/PA ONLY EXAMINATION: Chest radiograph, portable AP view. DATE: 09/30/2022 4:34 PM INDICATION: 72-year-old male, chest pain. COMPARISON: September 20, 2021. FINDINGS: There is elevation of the right hemidiaphragm. This is an interval change. There is blunting of the right lateral costophrenic angle and nonspecific right basilar airspace consolidation. Heart size and mediastinal contours are unchanged. There is no identified pneumothorax. IMPRESSION: 1. Nonspecific bibasilar airspace consolidation which may relate to pleural effusion, infiltrate, and/or atelectasis. 2. Elevation of the right hemidiaphragm which is an interval change since the prior study. Dictated by: Dictated on workstation # [id number] Dict: 09/30/22 1644 Trans: 09/30/22 1734 [facility] [id number] Interpreted by: TYLER NGUYEN MD Electronically signed by: TYLER NGUYEN MD 09/30/22 1731 Diagonstic Imaging: CT Plain Films/CT/US/NM/MRI: chest, abdomen, pelvis Comments [facility], [place] NAME: [facility] REC#: [id number] PT STATUS: REG ER : 1950 PHYSICIAN: ELBA HERNANDEZ APRN ADMIT DATE: 09/30/22/ER Signed Date of Exam:09/30/22 CT CHEST/ABDOMEN/PELVIS W PROCEDURE: CT chest, abdomen, and pelvis with contrast. TECHNIQUE: Multiple contiguous axial images were obtained through the chest, abdomen, and pelvis after the administration of intravenous contrast. Auto Exposure Controls were utilized during the CT exam to meet ALARA standards for radiation dose reduction. INDICATION: Chest pain. Abdominal distention and abdominal pain. History of liver disease. COMPARISON: 11/21/2021. FINDINGS: The thoracic aorta demonstrates no evidence to suggest dissection or aneurysm. There is mild cardiomegaly. The main pulmonary arteries appear normal in size. There are coronary calcifications. There is no significant pericardial collection. There is a small right and trace left pleural effusion. There is airspace consolidation within the right lower lobe that may reflect compressive atelectasis. Developing pneumonia could not be excluded. The lungs are otherwise clear. There is no suspicious pulmonary nodule or mass. There are no pathologically enlarged mediastinal, hilar or axillary lymph nodes. Note is made of marked gastroesophageal varices and a small hiatal hernia. There is cirrhotic morphology of the liver without identifiable enhancing intrahepatic mass. The gallbladder is contracted. There are no radiodense stones or findings of biliary dilatation. Pancreas appears appropriate. The spleen is normal in size. There is no adrenal mass. There is a right renal cyst. There is no hydronephrosis. The portal veins appear patent. There is a re-canalized umbilical vein. There is a large volume of abdominal and pelvic ascites. There are no findings to suggest bowel obstruction. What appears to be the appendix is air-filled and normal in caliber. There is no free air. The bladder is nondistended. There is ascites demonstrated within bilateral inguinal hernias. No adenopathy evident. There are atherosclerotic calcifications within a normal caliber aorta. There are background degenerative features throughout the spine which are most advanced at the L1-L2 and L2-L3 disc spaces. There is also an anterolisthesis of L4 on 5 due to advanced facet arthropathy. IMPRESSION: 1. Large volume of abdominal and pelvic ascites without findings of free air. 2. Cirrhosis with recanalized umbilical vein and marked gastroesophageal varices. No current active contrast extravasation evident. 3. Small right and trace left pleural effusion with right lower lobe consolidation that may reflect compressive atelectasis or a developing pneumonia. 4. No findings of bowel obstruction, biliary dilatation or hydronephrosis. 5. Advanced lower thoracic and lumbar degenerative disc disease. As these features were also present in 2021, this appears to be degenerative rather than related to a discitis. Dictated by: Dictated on workstation # [id number] Dict: 09/30/22 173 Trans: 09/30/22 175 [facility] [id number] Interpreted by: BELKIS HEATH MD Electronically signed by: BELKIS HEATH MD 09/30/22 175 Departure Impression Primary Impression: Ascites Qualified Codes: R18.8 - Other ascites Additional Impressions: Esophageal varices Qualified Codes: I85.00 - Esophageal varices without bleeding Liver cirrhosis Qualified Codes: K74.60 - Unspecified cirrhosis of liver; R18.8 - Other ascites Elevated troponin Pancytopenia Disposition: ADMITTED INPATIENT Condition: Stable Admissions Decision to Admit Reason: Admit from ER (General) Decision to Admit/Date: Sep 30, 2022 Time/Decision to Admit Time: 18:01 Departure-Patient Inst. Referrals: LUDIN PATTERSON DO (PCP) Primary Care Physician [facility] (Family) Primary Care Physician ELBA HERNANDEZ APRN Sep 30, 2022 16:33
[2022-09-30 16:34] LABS: MEAN CORPUSCULAR VOLUME 103 fL (80-99); PLATELET COUNT 97 10^3/uL (130-400)
[2022-09-30 16:36] LABS: BASOPHILS # (AUTO) 0.1 10^3/uL (0.0-0.1); BASOPHILS % (AUTO) 2 % (0-10); EOSINOPHILS # (AUTO) 0.2 10^3/uL (0.0-0.3); EOSINOPHILS % (AUTO) 5 % (0-10); HEMATOCRIT 34 % (40-54); HEMOGLOBIN 11.7 g/dL (13.3-17.7); LYMPHOCYTES # (AUTO) 1.4 10^3/uL (1.0-4.0); LYMPHOCYTES % (AUTO) 36 % (12-44); MEAN CORPUSCULAR HEMOGLOBIN 36 pg (25-34); MEAN CORPUSCULAR HGB CONC 35 g/dL (32-36); MEAN PLATELET VOLUME 11.1 fL (9.0-12.2); MONOCYTES # (AUTO) 0.5 10^3/uL (0.0-1.0); MONOCYTES % (AUTO) 12 % (0-12); NEUTROPHILS # (AUTO) 1.8 10^3/uL (1.8-7.8); NEUTROPHILS % (AUTO) 45 % (42-75)
[2022-09-30 16:46] LABS: ALBUMIN 2.2 GM/DL (3.2-4.5); INR 1.1 (0.8-1.4); POTASSIUM 3.8 MMOL/L (3.6-5.0)
[2022-09-30 16:47] LABS: CALCIUM 7.9 MG/DL (8.5-10.1)
--- NOTE | 2022-09-30 16:47 | Diagnostic Imaging Report ---
EXAMINATION: Chest radiograph, portable AP view. DATE: 09/30/2022 4:34 PM INDICATION: 72-year-old male, chest pain. COMPARISON: September 20, 2021. FINDINGS: There is elevation of the right hemidiaphragm. This is an interval change. There is blunting of the right lateral costophrenic angle and nonspecific right basilar airspace consolidation. Heart size and mediastinal contours are unchanged. There is no identified pneumothorax. IMPRESSION: 1. Nonspecific bibasilar airspace consolidation which may relate to pleural effusion, infiltrate, and/or atelectasis. 2. Elevation of the right hemidiaphragm which is an interval change since the prior study. Dictated by: Dictated on workstation # [id number]
[2022-09-30 16:50] LABS: BILIRUBIN,TOTAL 2.6 MG/DL (0.1-1.0)
[2022-09-30 16:52] LABS: CREATININE SERUM 0.85 MG/DL (0.60-1.30)
[2022-09-30 16:54] LABS: MAGNESIUM 1.8 MG/DL (1.6-2.4)
[2022-09-30] MEDS ORDERED: NS 100 ML (IVPB) BAG IV ONE (17:00)
[2022-09-30] MEDS ORDERED: IOHEXOL 350 MG/ML 100 ML (OMNIPAQUE 350) VIAL IV ONE (17:00)
--- NOTE | 2022-09-30 17:51 | Diagnostic Imaging Report ---
PROCEDURE: CT chest, abdomen, and pelvis with contrast. TECHNIQUE: Multiple contiguous axial images were obtained through the chest, abdomen, and pelvis after the administration of intravenous contrast. Auto Exposure Controls were utilized during the CT exam to meet ALARA standards for radiation dose reduction. INDICATION: Chest pain. Abdominal distention and abdominal pain. History of liver disease. COMPARISON: 11/21/2021. FINDINGS: The thoracic aorta demonstrates no evidence to suggest dissection or aneurysm. There is mild cardiomegaly. The main pulmonary arteries appear normal in size. There are coronary calcifications. There is no significant pericardial collection. There is a small right and trace left pleural effusion. There is airspace consolidation within the right lower lobe that may reflect compressive atelectasis. Developing pneumonia could not be excluded. The lungs are otherwise clear. There is no suspicious pulmonary nodule or mass. There are no pathologically enlarged mediastinal, hilar or axillary lymph nodes. Note is made of marked gastroesophageal varices and a small hiatal hernia. There is cirrhotic morphology of the liver without identifiable enhancing intrahepatic mass. The gallbladder is contracted. There are no radiodense stones or findings of biliary dilatation. Pancreas appears appropriate. The spleen is normal in size. There is no adrenal mass. There is a right renal cyst. There is no hydronephrosis. The portal veins appear patent. There is a re-canalized umbilical vein. There is a large volume of abdominal and pelvic ascites. There are no findings to suggest bowel obstruction. What appears to be the appendix is air-filled and normal in caliber. There is no free air. The bladder is nondistended. There is ascites demonstrated within bilateral inguinal hernias. No adenopathy evident. There are atherosclerotic calcifications within a normal caliber aorta. There are background degenerative features throughout the spine which are most advanced at the L1-L2 and L2-L3 disc spaces. There is also an anterolisthesis of L4 on 5 due to advanced facet arthropathy. IMPRESSION: 1. Large volume of abdominal and pelvic ascites without findings of free air. 2. Cirrhosis with recanalized umbilical vein and marked gastroesophageal varices. No current active contrast extravasation evident. 3. Small right and trace left pleural effusion with right lower lobe consolidation that may reflect compressive atelectasis or a developing pneumonia. 4. No findings of bowel obstruction, biliary dilatation or hydronephrosis. 5. Advanced lower thoracic and lumbar degenerative disc disease. As these features were also present in 2021, this appears to be degenerative rather than related to a discitis. Dictated by: Dictated on workstation # [id number]
[2022-09-30] MEDS ORDERED: CLOPIDOGREL 75 MG (PLAVIX) TABLET PO ONE (18:15)
[2022-09-30] MEDS ORDERED: meTOprolol SUCCINATE 100 MG (TOPROL XL) TAB PO ONE (18:15)
[2022-09-30 18:42] LABS: BILIRUBIN,URINE NEGATIVE (NEGATIVE); CLARITY,URINE CLEAR; COLOR,URINE YELLOW; GLUCOSE, URINE (UA) NEGATIVE (NEGATIVE); KETONES,URINE NEGATIVE (NEGATIVE); LEUKOCYTE ESTERASE ,URINE NEGATIVE (NEGATIVE); NITRITE,URINE NEGATIVE (NEGATIVE); PH,URINE 6.5 (5-9); PROTEIN,URINE NEGATIVE (NEGATIVE)
[2022-09-30 19:00] VITALS: BP 204/120
[2022-09-30 19:14] LABS: BACTERIA,URINE NEGATIVE /HPF; CALCIUM OXALATE CRYSTALS,UR FEW /LPF; HYALINE CASTS, URINE 0-2 /LPF; RBC,URINE 50-100 /HPF
[2022-09-30 19:24] VITALS: BP 189/117
[2022-09-30 19:30] VITALS: BP 180/105
[2022-09-30] MEDS ORDERED: PROCHLORPERAZINE 10 MG/2ML INJ (COMPAZINE) IV PRN (19:30)
[2022-09-30] MEDS ORDERED: CATHETER FLUSH 10 ML SYR IVP PRN (19:30)
[2022-09-30 19:45] VITALS: BP 171/99
[2022-09-30] MEDS ORDERED: RT-ALBUTEROL/IPRATROPIUM 3 ML (DUONEB) VIAL INH PRN (19:45)
[2022-09-30 20:00] VITALS: BP 162/107
[2022-09-30] MEDS ORDERED: amLODIPine 10 MG (NORVASC) TAB PO ONE (20:00)
[2022-09-30] MEDS ORDERED: cloNIDine 0.1 MG (CATAPRES) TAB PO ONE (20:00)
[2022-09-30 20:30] VITALS: BP 148/114
--- NOTE | 2022-09-30 20:47 | Consultation-Cardiology ---
HPI-Cardiology Cardiology Consultation: Date of Consultation 09/30/22 Time Seen by a Provider: 20:30 Date of Admission Attending Physician Dominick Arthur DO Admitting Physician Admitting Physician: Anabela Vance MD Attending Physician: Anabela Vance MD Consulting Physician YVONNE MOSQUERA MD, MA, FACP, FACC, FSCAI, CCDS Physician requesting Card consult: Dr Vance HPI: Chief Complaint: Reason for Card consult: Minimally elevated troponin 72 yo man with 1-2 week of increasing abd discomfort and distention. Also intermittent upper bilateral shoulder and upper, outer chest discomfort that waxes and wanes and does not have any aggravating or relieving factors, is mild to mod, is sharp to dull, is not associated with other symptoms. This discomfort is more chronic than the abd discomfort. Has had gen malaise and appetite has been low. Denies n/v/d Review of Systems-Cardiology Review of Systems Constitutional: As described under HPI Eyes: No vision change Ears/Nose/Throat: No ear discharge, No nasal drainage, No recent hearing loss Respiratory: As described under HPI Cardiovascular: As described under HPI Gastrointestinal: As described under HPI Genitourinary: No dysuria, No hematuria, No urine frequency changes Musculoskeletal: back pain (chronic mid and low back pain) Skin: No rash, No ulcerations Psychiatric/Neurological: No anxiety, No seizure, No focal weakness, No syncope Hematologic: No bleeding abnormalities MJI-Gpimvd-Sbyomw Hx Patient Social History Smoking Status: Current Everyday Smoker 2nd Hand Smoke Exposure: Yes Have you traveled recently?: No Alcohol Use?: No Pt feels they are or have been: No Tobacco type used: Cigarettes Immunizations Up To Date Tetanus Booster (TDap): Less than 5yrs Past Medical History PMH As described under Assessment. Family Medical History Family Medical History: He does not report fam h/o early CAD or SCD Allergies and Home Medications Allergies Coded Allergies: ibuprofen (Verified Allergy, Unknown, 07/03/21) acetaminophen (Unverified Adverse Reaction, Mild, GI BLEED, N/V, 10/14/10) Sulfa (Sulfonamide Antibiotics) (Unverified Adverse Reaction, Unknown, GI BLEED, N/V, 04/08/15) aspirin (Unverified Adverse Reaction, Unknown, GI BLEED, N/V, 10/31/15) Patient Home Medication List Home Medication List Reviewed: Yes Albuterol Sulfate (Ventolin Hfa) 1 Puff Puff, 2 PUFF IH Q4H, (Reported) Entered as Reported by: NUBIA VALDES on 11/23/20 0105 Albuterol Sulfate (Ventolin Hfa) 1 Puff Puff, 2 PUFF IH Q4H Prescribed by: ANTOINE ZHANG on 11/23/20 0306 Amoxicillin/Potassium Clav (Amox Tr-K Clv 875-125 mg Tab) 875 Mg-125 Mg Tablet, 1 EACH PO BID Prescribed by: JAKOB PA on 04/13/22 191 Benzonatate (Tessalon Perles) 100 Mg Capsule, 200 MG PO TID Prescribed by: ANTOINE ZHANG on 11/23/20 025 Cephalexin (Cephalexin) 500 Mg Tablet, 500 MG PO QID Prescribed by: STEPHANIE LAYNE on 04/04/22 0731 Cephalexin (Cephalexin) 500 Mg Tablet, 500 MG PO QID Prescribed by: MARISEL ROSE on 08/19/22 1641 Ciprofloxacin HCl (Ciprofloxacin HCl) 500 Mg Tablet, 500 MG PO BID Prescribed by: PENNY ONEILL on 11/14/21 0112 Doxycycline Hyclate (Doxycycline Hyclate) 100 Mg Tablet, 100 MG PO BID Prescribed by: ANTOINE ZHANG on 11/23/20 025 Doxycycline Monohydrate (Doxycycline Monohydrate) 100 Mg Tablet, 100 MG PO BID Prescribed by: MARISEL ROSE on 08/19/22 1639 Furosemide (Lasix) 40 Mg Tablet, 40 MG PO DAILY Prescribed by: MARISEL ROSE on 08/19/22 1633 Guaifenesin/Dextromethorphan (Mucinex Dm ER 1,200-60 mg Tab) 1 Each Tbmp.12hr, 1 EACH PO BID Prescribed by: ANTOINE ZHANG on 11/23/20 025 Methylprednisolone (Medrol) 4 Mg Tab.ds.pk, 4 MG PO UD Prescribed by: ANTOINE ZHANG on 11/23/20 025 Mupirocin (Mupirocin) 2 % Oint...g., 22 GM TP BID Prescribed by: ANTOINE ZHANG on 11/19/21 0331 Nitrofurantoin Monohyd/M-Cryst (Macrobid 100 mg Capsule) 100 Mg Capsule, 1 TAB PO BID Prescribed by: ANTOINE ZHANG on 11/19/21 033 Nitrofurantoin Monohyd/M-Cryst (Macrobid 100 mg Capsule) 100 Mg Capsule, 1 TAB PO BID Prescribed by: STEPHANIE LAYNE on 11/21/21 1648 Ondansetron (Ondansetron Odt) 4 Mg Tab.rapdis, 4 MG PO Q8H PRN for nausea Prescribed by: PENNY ONEILL on 07/03/21 1720 Oxycodone HCl (Oxycodone HCl) 5 Mg Tablet, 5 MG PO Q4H PRN for PAIN-MODERATE (5- 7) Prescribed by: STEPHANIE LAYNE on 11/21/21 1647 Pantoprazole Sodium (Pantoprazole Sodium) 20 Mg Tablet.dr, 20 MG PO DAILY Prescribed by: PENNY ONEILL on 07/03/21 1720 Pantoprazole Sodium (Protonix) 40 Mg Tablet.dr, 40 MG PO DAILY Prescribed by: STEPHANIE LAYNE on 09/20/21 1802 Potassium Chloride (Potassium Chloride) 20 Meq Tablet.er, 20 MEQ PO DAILY Prescribed by: MARISEL ROSE on 08/19/22 1635 Physical Exam-Cardiology Physical Exam Vital Signs/I&O 09/30/22 09/30/22 09/30/22 09/30/22 16:10 16:40 18:51 19:00 Temp 36.4 36.4 36.4 36.1 Pulse 83 89 81 Resp 22 18 16 B/P (MAP) 189/117 (141) 162/90 204/120 (148) Pulse Ox 98 98 96 O2 Delivery Room Air Room Air Room Air 09/30/22 09/30/22 19:24 19:28 Temp 36.4 Pulse 83 70 Pulse Ox 98 FiO2 21 Capillary Refill : Less Than 3 Seconds Data Review Labs Laboratory Tests 09/30/22 16:25: White Blood Count 4.0L, Red Blood Count 3.27L, Hemoglobin 11.7L, Hematocrit 34L, Mean Corpuscular Volume 103H, Mean Corpuscular Hemoglobin 36H, Mean Corpuscular Hemoglobin Concent 35, Red Cell Distribution Width 15.0H, Platelet Count 97L, Mean Platelet Volume 11.1, Immature Granulocyte % (Auto) 0, Neutrophils (%) (Auto) 45, Lymphocytes (%) (Auto) 36, Monocytes (%) (Auto) 12, Eosinophils (%) (Auto) 5, Basophils (%) (Auto) 2, Neutrophils # (Auto) 1.8, Lymphocytes # (Auto) 1.4, Monocytes # (Auto) 0.5, Eosinophils # (Auto) 0.2, Basophils # (Auto) 0.1, Immature Granulocyte # (Auto) 0.0, Percent Immature Platelet Fraction 5.1, Prothrombin Time 15.0H, INR Comment 1.1, Activated Partial Thromboplast Time 35, Sodium Level 136, Potassium Level 3.8, Chloride Level 107, Carbon Dioxide Level 26, Anion Gap 3L, Blood Urea Nitrogen 9, Creatinine 0.85, Estimat Glomerular Filtration Rate 93, BUN/Creatinine Ratio 11, Glucose Level 108H, Calcium Level 7.9L, Corrected Calcium 9.3, Magnesium Level 1.8, Total Bilirubin 2.6H, Aspartate Amino Transf (AST/SGOT) 93H, Alanine Aminotransferase (ALT/SGPT) 51, Alkaline Phosphatase 201H, Troponin I 0.037H, B-Type Natriuretic Peptide 59.1, Total Protein 8.0, Albumin 2.2L, Amylase Level 114, Lipase 64 09/30/22 18:37: Urine Color YELLOW, Urine Clarity CLEAR, Urine pH 6.5, Urine Specific [place] 1.010L, Urine Protein NEGATIVE, Urine Glucose (UA) NEGATIVE, Urine Ketones NEGATIVE, Urine Nitrite NEGATIVE, Urine Bilirubin NEGATIVE, Urine Urobilinogen 2.0, Urine Leukocyte Esterase NEGATIVE, Urine RBC (Auto) 1+H, Urine RBC 50-100H, Urine WBC NONE, Urine Crystals PRESENTH, Urine Calcium Oxalate Crystals FEWH, Urine Bacteria NEGATIVE, Urine Casts PRESENT, Urine Hyaline Casts 0-2H, Urine Mucus MODERATEH, Urine Culture Indicated NO 09/30/22 20:18: A/P-Cardiology Assessment/Admission Diagnosis Minimal troponin elevation likely due to type 2 VA due to uncontrolled hypertension - no ECG evidence of ac VA Abd pain and distention due to ascites Liver cirrhosis, by history H/o Hep C that has been treated, per his report Severe hypertension Discussion and Recomendations * Beta-michael for bp control * Oral doxazosin prn for severe hypertension * Add other hypertensives as needed * I asked the ER physician to give antiplatelet agents if approved by the admitting physician / hospitalist * Echo * We recommend paracentesis for diagnostic and therapeutic purposes * Monitor labs YVONNE MOSQUERA MD FACP FAC CCDS Sep 30, 2022 20:47
[2022-09-30] MEDS ORDERED: cloNIDine 0.1 MG (CATAPRES) TAB ONE (20:56)
[2022-09-30] MEDS ORDERED: amLODIPine 10 MG (NORVASC) TAB ONE (20:57)
[2022-09-30] MEDS ORDERED: doxAzosin 4 MG (CARDURA) TAB PO PRN (21:00)
[2022-09-30] MEDS: CATHETER FLUSH 10 ML SYR IVP SCH (21:08)
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
[2022-09-30] MEDS: cefTRIAXone INJ 2,000 MG in NS (IVPB) 50 ML IV SCH (23:17)
[2022-10-01] VITALS (9 sets, daily range): BP systolic 95–145; BP diastolic 51–83
[2022-10-01] MEDS ORDERED: MELATONIN 3 MG TABLET PO ONE (00:29)
[2022-10-01 04:26] LABS: BASOPHILS # (AUTO) 0.1 10^3/uL (0.0-0.1); BASOPHILS % (AUTO) 1 % (0-10); EOSINOPHILS # (AUTO) 0.3 10^3/uL (0.0-0.3); EOSINOPHILS % (AUTO) 6 % (0-10); HEMATOCRIT 28 % (40-54); HEMOGLOBIN 9.7 g/dL (13.3-17.7); LYMPHOCYTES # (AUTO) 1.9 10^3/uL (1.0-4.0); LYMPHOCYTES % (AUTO) 38 % (12-44); MEAN CORPUSCULAR HEMOGLOBIN 36 pg (25-34); MEAN CORPUSCULAR HGB CONC 35 g/dL (32-36); MEAN CORPUSCULAR VOLUME 102 fL (80-99); MEAN PLATELET VOLUME 11.6 fL (9.0-12.2); MONOCYTES # (AUTO) 0.7 10^3/uL (0.0-1.0); MONOCYTES % (AUTO) 13 % (0-12); NEUTROPHILS % (AUTO) 41 % (42-75); PLATELET COUNT 84 10^3/uL (130-400)
[2022-10-01 04:48] LABS: CALCIUM 7.5 MG/DL (8.5-10.1)
[2022-10-01 04:52] LABS: CREATININE SERUM 0.77 MG/DL (0.60-1.30)
[2022-10-01 05:02] LABS: EOSINOPHILS % (MANUAL) 5 %; LYMPHOCYTES % (MANUAL) 36 %; MONOCYTES % (MANUAL) 6 %; NEUTROPHILS % (MANUAL) 53 %
[2022-10-01 05:03] LABS: TARGET CELLS SLIGHT
[2022-10-01] MEDS: CATHETER FLUSH 10 ML SYR IVP SCH ×3 (06:06→21:30)
[2022-10-01] MEDS ORDERED: amLODIPine 5 MG (NORVASC) TAB PO SCH (09:00)
--- NOTE | 2022-10-01 10:22 | Progress Note - Cardiology ---
Cardiology SOAP Progress Note Subjective: Lying in bed C/O fatigue No c/o CP, palpitations or SOB Objective: I&O/Vital Signs 10/01/22 10/01/22 10/01/22 10/01/22 07:45 07:51 08:00 09:07 Temp 36.3 Pulse 62 59 69 Resp 20 20 B/P (MAP) 110/83 (92) 145/51 (82) Pulse Ox 96 96 O2 Delivery Room Air Room Air Room Air 10/01/22 10/01/22 10/01/22 10/01/22 09:45 11:36 11:43 12:21 Temp 36.6 Pulse 67 59 Resp 20 B/P (MAP) 122/69 (86) Pulse Ox 96 96 O2 Delivery Room Air Room Air O2 Flow Rate 0.00 10/01/22 10/01/22 10/01/22 13:00 14:00 15:23 Temp 36.6 Pulse 60 59 58 Resp 9 10 13 B/P (MAP) 101/60 (74) 104/58 (73) 95/60 (72) Pulse Ox 93 95 93 O2 Delivery Room Air Room Air Room Air 10/01/22 00:00 Intake Total 250 ml Balance 250 ml Weight (Pounds): 160 Weight (Ounces): 0.0 Weight (Calculated Kilograms): [id number] Constitutional: AAO x 3, well-developed, well-nourished Respiratory: No accessory muscle use, No respiratory distress; chest expansion is symmetric, chest is bilaterally symmetric, other (diminished bases bilat) Cardiovascular: regular rate-rhythm; No JVD; S1 and S2 Gastrointestional: No tender; distended; No guarding; audible bowel sounds Extremities: no lower extremity edema bilateral Neurologic/Psychiatric: grossly intact (moves all extremities) Skin: No rash on exposed areas, No ulcerations on exposed areas Results/Procedures: Labs Laboratory Tests 09/30/22 16:25: White Blood Count 4.0L, Red Blood Count 3.27L, Hemoglobin 11.7L, Hematocrit 34L, Mean Corpuscular Volume 103H, Mean Corpuscular Hemoglobin 36H, Mean Corpuscular Hemoglobin Concent 35, Red Cell Distribution Width 15.0H, Platelet Count 97L, Mean Platelet Volume 11.1, Immature Granulocyte % (Auto) 0, Neutrophils (%) (Auto) 45, Lymphocytes (%) (Auto) 36, Monocytes (%) (Auto) 12, Eosinophils (%) (Auto) 5, Basophils (%) (Auto) 2, Neutrophils # (Auto) 1.8, Lymphocytes # (Auto) 1.4, Monocytes # (Auto) 0.5, Eosinophils # (Auto) 0.2, Basophils # (Auto) 0.1, Immature Granulocyte # (Auto) 0.0, Percent Immature Platelet Fraction 5.1, Prothrombin Time 15.0H, INR Comment 1.1, Activated Partial Thromboplast Time 35, Sodium Level 136, Potassium Level 3.8, Chloride Level 107, Carbon Dioxide Level 26, Anion Gap 3L, Blood Urea Nitrogen 9, Creatinine 0.85, Estimat Glomerular Filtration Rate 93, BUN/Creatinine Ratio 11, Glucose Level 108H, Calcium Level 7.9L, Corrected Calcium 9.3, Magnesium Level 1.8, Total Bilirubin 2.6H, Aspartate Amino Transf (AST/SGOT) 93H, Alanine Aminotransferase (ALT/SGPT) 51, Alkaline Phosphatase 201H, Troponin I 0.037H, B-Type Natriuretic Peptide 59.1, Total Protein 8.0, Albumin 2.2L, Amylase Level 114, Lipase 64 09/30/22 18:37: Urine Color YELLOW, Urine Clarity CLEAR, Urine pH 6.5, Urine Specific [place] 1.010L, Urine Protein NEGATIVE, Urine Glucose (UA) NEGATIVE, Urine Ketones NEGATIVE, Urine Nitrite NEGATIVE, Urine Bilirubin NEGATIVE, Urine Urobilinogen 2.0, Urine Leukocyte Esterase NEGATIVE, Urine RBC (Auto) 1+H, Urine RBC 50-100H, Urine WBC NONE, Urine Crystals PRESENTH, Urine Calcium Oxalate Crystals FEWH, Urine Bacteria NEGATIVE, Urine Casts PRESENT, Urine Hyaline Casts 0-2H, Urine Mucus MODERATEH, Urine Culture Indicated NO 09/30/22 20:18: Troponin I 0.031H 09/30/22 20:39: Lactic Acid Level 1.66 10/01/22 04:00: White Blood Count 5.0, Red Blood Count 2.73L, Hemoglobin 9.7L, Hematocrit 28L, Mean Corpuscular Volume 102H, Mean Corpuscular Hemoglobin 36H, Mean Corpuscular Hemoglobin Concent 35, Red Cell Distribution Width 15.2H, Platelet Count 84L, Mean Platelet Volume 11.6, Immature Granulocyte % (Auto) 0, Neutrophils (%) (Auto) 41L, Lymphocytes (%) (Auto) 38, Monocytes (%) (Auto) 13H, Eosinophils (%) (Auto) 6, Basophils (%) (Auto) 1, Neutrophils # (Auto) 2.0, Lymphocytes # (Auto) 1.9, Monocytes # (Auto) 0.7, Eosinophils # (Auto) 0.3, Basophils # (Auto) 0.1, Immature Granulocyte # (Auto) 0.0, Neutrophils % (Manual) 53, Lymphocytes % (Manual) 36, Monocytes % (Manual) 6, Eosinophils % (Manual) 5, Percent Immature Platelet Fraction 5.0, Target Cells SLIGHT, Sodium Level 133L, Potassium Level 4.0, Chloride Level 108H, Carbon Dioxide Level 21, Anion Gap 4L, Blood Urea Nitrogen 10, Creatinine 0.77, Estimat Glomerular Filtration Rate 96, BUN/Creatinine Ratio 13, Glucose Level 89, Calcium Level 7.5L A/P: Assessment: Minimal troponin elevation likely due to type 2 CA due to uncontrolled hypertension - no ECG evidence of ac CA Abd pain and distention due to ascites Liver cirrhosis, by history H/o Hep C that has been treated, per his report Severe hypertension - improved today Plan: * Continue Beta-michael for bp control * Oral doxazosin prn for severe hypertension * Add other hypertensives as needed * Antiplatelet agents if approved by the admitting physician / hospitalist * Echo * Paracentesis for diagnostic and therapeutic purposes later today per Dr. Vance * Monitor labs VALDEMAR PATTERSON Oct 01, 2022 10:22
[2022-10-01] MEDS ORDERED: meTOproloL SUCCINATE 50 MG (TOPROL XL) TAB PO NR (10:30)
--- NOTE | 2022-10-01 12:05 | Progress Note - Cardiology ---
Cardiology SOAP Progress Note Subjective: No cp or palp or syncope No shortness of breath at rest Abd discomfort as before No n/v Gen malaise and weakness No focal weakness Objective: I&O/Vital Signs 10/01/22 10/01/22 10/01/22 10/01/22 01:00 04:00 04:01 07:45 Temp 36.2 36.3 Pulse 65 64 62 Resp 10 20 B/P (MAP) 120/75 (90) 110/83 (92) Pulse Ox 97 96 O2 Delivery Room Air Room Air Room Air 10/01/22 10/01/22 10/01/22 10/01/22 07:51 08:00 09:07 09:45 Pulse 59 69 Resp 20 B/P (MAP) 145/51 (82) Pulse Ox 96 96 O2 Delivery Room Air Room Air Room Air O2 Flow Rate 0.00 10/01/22 11:36 Pulse 67 Resp 20 B/P (MAP) 122/69 (86) Pulse Ox 96 O2 Delivery Room Air 10/01/22 00:00 Intake Total 250 ml Balance 250 ml Weight (Pounds): 160 Weight (Ounces): 0.0 Weight (Calculated Kilograms): 72.457008 Constitutional: AAO x 3, well-developed, well-nourished Respiratory: No accessory muscle use, No respiratory distress; chest expansion is symmetric, chest is bilaterally symmetric, other (diminished bases bilat) Cardiovascular: regular rate-rhythm; No JVD; S1 and S2 Gastrointestional: No tender; distended; No guarding; audible bowel sounds Extremities: no lower extremity edema bilateral Neurologic/Psychiatric: grossly intact (moves all extremities) Skin: No rash on exposed areas, No ulcerations on exposed areas Results/Procedures: Labs Laboratory Tests 09/30/22 16:25: White Blood Count 4.0L, Red Blood Count 3.27L, Hemoglobin 11.7L, Hematocrit 34L, Mean Corpuscular Volume 103H, Mean Corpuscular Hemoglobin 36H, Mean Corpuscular Hemoglobin Concent 35, Red Cell Distribution Width 15.0H, Platelet Count 97L, Mean Platelet Volume 11.1, Immature Granulocyte % (Auto) 0, Neutrophils (%) (Auto) 45, Lymphocytes (%) (Auto) 36, Monocytes (%) (Auto) 12, Eosinophils (%) (Auto) 5, Basophils (%) (Auto) 2, Neutrophils # (Auto) 1.8, Lymphocytes # (Auto) 1.4, Monocytes # (Auto) 0.5, Eosinophils # (Auto) 0.2, Basophils # (Auto) 0.1, Immature Granulocyte # (Auto) 0.0, Percent Immature Platelet Fraction 5.1, Prothrombin Time 15.0H, INR Comment 1.1, Activated Partial Thromboplast Time 35, Sodium Level 136, Potassium Level 3.8, Chloride Level 107, Carbon Dioxide Level 26, Anion Gap 3L, Blood Urea Nitrogen 9, Creatinine 0.85, Estimat Glomerular Filtration Rate 93, BUN/Creatinine Ratio 11, Glucose Level 108H, Calcium Level 7.9L, Corrected Calcium 9.3, Magnesium Level 1.8, Total Bilirubin 2.6H, Aspartate Amino Transf (AST/SGOT) 93H, Alanine Aminotransferase (ALT/SGPT) 51, Alkaline Phosphatase 201H, Troponin I 0.037H, B-Type Natriuretic Peptide 59.1, Total Protein 8.0, Albumin 2.2L, Amylase Level 114, Lipase 64 09/30/22 18:37: Urine Color YELLOW, Urine Clarity CLEAR, Urine pH 6.5, Urine Specific [place] 1.010L, Urine Protein NEGATIVE, Urine Glucose (UA) NEGATIVE, Urine Ketones NEGATIVE, Urine Nitrite NEGATIVE, Urine Bilirubin NEGATIVE, Urine Urobilinogen 2.0, Urine Leukocyte Esterase NEGATIVE, Urine RBC (Auto) 1+H, Urine RBC 50-100H, Urine WBC NONE, Urine Crystals PRESENTH, Urine Calcium Oxalate Crystals FEWH, Urine Bacteria NEGATIVE, Urine Casts PRESENT, Urine Hyaline Casts 0-2H, Urine Mucus MODERATEH, Urine Culture Indicated NO 09/30/22 20:18: Troponin I 0.031H 09/30/22 20:39: Lactic Acid Level 1.66 10/01/22 04:00: White Blood Count 5.0, Red Blood Count 2.73L, Hemoglobin 9.7L, Hematocrit 28L, Mean Corpuscular Volume 102H, Mean Corpuscular Hemoglobin 36H, Mean Corpuscular Hemoglobin Concent 35, Red Cell Distribution Width 15.2H, Platelet Count 84L, Mean Platelet Volume 11.6, Immature Granulocyte % (Auto) 0, Neutrophils (%) (Auto) 41L, Lymphocytes (%) (Auto) 38, Monocytes (%) (Auto) 13H, Eosinophils (%) (Auto) 6, Basophils (%) (Auto) 1, Neutrophils # (Auto) 2.0, Lymphocytes # (Auto) 1.9, Monocytes # (Auto) 0.7, Eosinophils # (Auto) 0.3, Basophils # (Auto) 0.1, Immature Granulocyte # (Auto) 0.0, Neutrophils % (Manual) 53, Lymphocytes % ( Manual) 36, Monocytes % (Manual) 6, Eosinophils % (Manual) 5, Percent Immature Platelet Fraction 5.0, Target Cells SLIGHT, Sodium Level 133L, Potassium Level 4.0, Chloride Level 108H, Carbon Dioxide Level 21, Anion Gap 4L, Blood Urea Nit rogen 10, Creatinine 0.77, Estimat Glomerular Filtration Rate 96, BUN/Creatinine Ratio 13, Glucose Level 89, Calcium Level 7.5L Laboratory Tests 09/30/22 16:25 10/01/22 04:00 A/P: Assessment: Minimal troponin elevation likely due to type 2 [place] due to uncontrolled hypertension - no ECG evidence of ac [place] Abd pain and distention due to ascites Liver cirrhosis, by history H/o Hep C that has been treated, per his report Severe hypertension - improved today Hyponatremia, hypoalbuminemia, and anemia of undetermined etiology - managed by the [facility] Plan: * Continue Beta-michael for bp control * Oral doxazosin prn for severe hypertension * Add other hypertensives as needed * Antiplatelet agents if approved by the admitting physician / hospitalist * Echo * Paracentesis for diagnostic and therapeutic purposes later today per Dr. Vance * Monitor labs YVONNE MOSQUERA MD [facility] Oct 01, 2022 12:05
[2022-10-01] MEDS: morphine INJ 4 MG/ML 1 ML (VIAL/SYRINGE) IV PRN (12:13)
[2022-10-01] MEDS ORDERED: RT-ALBUINH INH (15:50)
[2022-10-01] MEDS ORDERED: ALPR1TAB7 PO (15:50)
--- NOTE | 2022-10-01 16:02 | Progress Note ---
Subjective Subjective/Events-last exam Pt seen at 0955. He states he is not ready for paracentesis and requests to have it done later today. He says his abdomen is a little better, thinks it has gone down a little and is a little less painful. Focused Exam Lactate Level 09/30/22 20:39: Lactic Acid Level 1.66 Objective Exam Last Set of Vital Signs Vital Signs Date Time Temp Pulse Resp B/P (MAP) Pulse Ox O2 Delivery O2 Flow Rate FiO2 10/01/22 15:23 36.6 58 13 95/60 (72) 93 Room Air 10/01/22 09:45 0.00 09/30/22 19:24 21 Capillary Refill : Less Than 3 Seconds I&O Intake and Output 10/01/22 00:00 Intake Total 250 ml Balance 250 ml Intake Oral 250 ml # Voids 2 Daily Weight Change No General: Alert, No Acute Distress Lungs: Clear to Auscultation, Normal Air Movement Heart: Regular Rate, No Murmurs Abdomen: Normal Bowel Sounds, Other (distended, but less than yesterday and mild diffuse ttp, decreased from yesterday) Neuro: Normal Speech Psych/Mental Status: Mood NL Results/Procedures Lab Laboratory Tests 09/30/22 16:25: White Blood Count 4.0L, Red Blood Count 3.27L, Hemoglobin 11.7L, Hematocrit 34L, Mean Corpuscular Volume 103H, Mean Corpuscular Hemoglobin 36H, Mean Corpuscular Hemoglobin Concent 35, Red Cell Distribution Width 15.0H, Platelet Count 97L, Mean Platelet Volume 11.1, Immature Granulocyte % (Auto) 0, Neutrophils (%) (Auto) 45, Lymphocytes (%) (Auto) 36, Monocytes (%) (Auto) 12, Eosinophils (%) (Auto) 5, Basophils (%) (Auto) 2, Neutrophils # (Auto) 1.8, Lymphocytes # (Auto) 1.4, Monocytes # (Auto) 0.5, Eosinophils # (Auto) 0.2, Basophils # (Auto) 0.1, Immature Granulocyte # (Auto) 0.0, Percent Immature Platelet Fraction 5.1, Prothrombin Time 15.0H, INR Comment 1.1, Activated Partial Thromboplast Time 35, Sodium Level 136, Potassium Level 3.8, Chloride Level 107, Carbon Dioxide Level 26, Anion Gap 3L, Blood Urea Nitrogen 9, Creatinine 0.85, Estimat Glomerular Filtration Rate 93, BUN/Creatinine Ratio 11, Glucose Level 108H, Calcium Level 7.9L, Corrected Calcium 9.3, Magnesium Level 1.8, Total Bilirubin 2.6H, Aspartate Amino Transf (AST/SGOT) 93H, Alanine Aminotransferase (ALT/SGPT) 51, Alkaline Phosphatase 201H, Troponin I 0.037H, B-Type Natriuretic Peptide 59.1, Total Protein 8.0, Albumin 2.2L, Amylase Level 114, Lipase 64 09/30/22 18:37: Urine Color YELLOW, Urine Clarity CLEAR, Urine pH 6.5, Urine Specific [place] 1.010L, Urine Protein NEGATIVE, Urine Glucose (UA) NEGATIVE, Urine Ketones NEG ATIVE, Urine Nitrite NEGATIVE, Urine Bilirubin NEGATIVE, Urine Urobilinogen 2.0, Urine Leukocyte Esterase NEGATIVE, Urine RBC (Auto) 1+H, Urine RBC 50-100H, Urine WBC NONE, Urine Crystals PRESENTH, Urine Calcium Oxalate Crystals FEWH, Urine Bacteria NEGATIVE, Urine Casts PRESENT, Urine Hyaline Casts 0-2H, Urine Mucus MODERATEH, Urine Culture Indicated NO 09/30/22 20:18: Troponin I 0.031H 09/30/22 20:39: Lactic Acid Level 1.66 10/01/22 04:00: White Blood Count 5.0, Red Blood Count 2.73L, Hemoglobin 9.7L, Hematocrit 28L, Mean Corpuscular Volume 102H, Mean Corpuscular Hemoglobin 36H, Mean Corpuscular Hemoglobin Concent 35, Red Cell Distribution Width 15.2H, Platelet Count 84L, Mean Platelet Volume 11.6, Immature Granulocyte % (Auto) 0, Neutrophils (%) (Auto) 41L, Lymphocytes (%) (Auto) 38, Monocytes (%) (Auto) 13H, Eosinophils (%) (Auto) 6, Basophils (%) (Auto) 1, Neutrophils # (Auto) 2.0, Lymphocytes # (Auto) 1.9, Monocytes # (Auto) 0.7, Eosinophils # (Auto) 0.3, Basophils # (Auto) 0.1, Immature Granulocyte # (Auto) 0.0, Neutrophils % (Manual) 53, Lymphocytes % (Manual) 36, Monocytes % (Manual) 6, Eosinophils % (Manual) 5, Percent Immature Platelet Fraction 5.0, Target Cells SLIGHT, Sodium Level 133L, Potassium Level 4.0, Chloride Level 108H, Carbon Dioxide Level 21, Anion Gap 4L, Blood Urea Nitrogen 10, Creatinine 0.77, Estimat Glomerular Filtration Rate 96, BUN/Creatinine Ratio 13, Glucose Level 89, Calcium Level 7.5L Radiology 09/30/22 CT abd/pelvis: IMPRESSION: 1. Large volume of abdominal and pelvic ascites without findings of free air. 2. Cirrhosis with recanalized umbilical vein and marked gastroesophageal varices. No current active contrast extravasation evident. 3. Small right and trace left pleural effusion with right lower lobe consolidation that may reflect compressive atelectasis or a developing pneumonia. 4. No findings of bowel obstruction, biliary dilatation or hydronephrosis. 5. Advanced lower thoracic and lumbar degenerative disc disease. As these features were also present in 2021, this appears to be degenerative rather than related to a discitis. 09/30/22 CXR: IMPRESSION: 1. Nonspecific bibasilar airspace consolidation which may relate to pleural effusion, infiltrate, and/or atelectasis. 2. Elevation of the right hemidiaphragm which is an interval change since the prior study. Assessment/Plan Assessment/Plan (1) Ascites Status: Acute Assessment & Plan: New onset, concerning for SBP given general tenderness. Came to bedside with plan to do paracentesis, he declines at this time and requests to have done in the morning. Discussed that every hour of delay can increase risk of serious life threatening outcome, but he states he needs time to mentally prepare. Will start ceftriaxone 2 grams q24 empirically. 10/01- pt declines paracentesis this am, will check this afternoon (2) Elevated liver enzymes Status: Chronic Assessment & Plan: Chronic intermittent, suspect related to underlying liver disease. Monitor. (3) Abdominal pain Status: Acute Assessment & Plan: Possible SBP as above. Lipase nml. CT abdomen with esophageal varices and ascites, no other acute findings. Qualifiers: Qualified Codes: R10.84 - Generalized abdominal pain (4) Chest pain Status: Acute Assessment & Plan: With slightly elevated troponin, appreciate Cardiology recommendations. Repeat down slightly. (5) Elevated troponin Status: Acute (6) Esophageal varices Status: Chronic Assessment & Plan: No evidence of active bleeding at this time, monitor closely. Qualifiers: Qualified Codes: I85.10 - Secondary esophageal varices without bleeding (7) Hypertension Status: Chronic Assessment & Plan: Not on home meds currently, previously on amlodipine. Per clinic chart had angioedema with lisinopril. Received metoprolol in ER and BP is trending down. Qualifiers: Qualified Codes: I10 - Essential (primary) hypertension (8) Pain, dental Status: Acute Assessment & Plan: Requesting treatment inpatient, has appt with [facility] tomorrow for procedure, discussed we will have to reschedule his outpatient care. (9) Liver cirrhosis Status: Chronic Assessment & Plan: Pt denies previous diagnosis, but does have history of treated Hep C. Repeat hep panel and hep C viral load pending. Paracentesis recommended as above. (10) Pancytopenia Status: Acute Assessment & Plan: Suspect secondary to cirrhosis. (11) History of hepatitis C Status: Chronic (12) DVT prophylaxis Status: Acute Assessment & Plan: Hold enoxaparin for now with anemia and thrombocytopenia and need for anti-platelet for CAD concerns, as well as possible paracentesis in the morning. SCDs. TITUS MANNING MD Oct 01, 2022 16:02
[2022-10-01] MEDS ORDERED: LIDOCAINE 1% INJ 20 ML VIAL ONE (17:27)
--- NOTE | 2022-10-01 18:02 | Progress Note-Post Operative ---
Post-Procedure Note Physician (s)/Wheel Fitter (s) Physician TITUS MANNING MD Pre-Procedure Diagnosis Pre-Procedure Diagnosis: Ascites Post-Procedure Note Procedure Start Date: Oct 01, 2022 Procedure Start Time: 17:30 Name of Procedure: Paracentesis Findings/Procedure Note Procedure and risks and benefits including bleeding, risk of bowel perforation and ascitic leak discussed with patient and questions answered. Written consent obtained. Patient positioned supine with head of bed at 30 degrees and ultrasound was used to confirm ascitic fluid pocket present at 3 cm medial and cephalad to anterior superior iliac spine. When confirmed, the spot was marked with pen and then cleansed with chlorhexidine. Area draped with sterile dressing. Skin anesthesized with 1 cc of 1% lidocaine, followed by lidocaine introduced deept o the peritoneum. Skin punctured with an 11 blade scalpel. Paracentesis needle was placed through the skin and advanced slowly, aspirating every few mm until yellow ascitic fluid aspirated. The needle was removed and the catheter connected to 60 cc syringe and 60 cc of blood tinged/clearing fluid removed. Clear yellow fluid then noted in tubing but when connected to drainage bag, unable to aspirate further fluid. Slowly removed catheter and aspirated every few mm, but no further fluid obtained and the catheter was removed. The site was bandaged and samples were sent to the lab for analysis. 65 cc of ascitic fluid removed. Complications: the patient tolerated the procedure well without complications. Estimated blood loss (mL): 2 ml Post-Procedure Diagnosis Post-operative diagnosis: Ascites TITUS MANNING MD Oct 01, 2022 18:02
[2022-10-01 18:33] LABS: BODY FLUID RBC COUNT 0.001 10^6/uL; BODY FLUID WBC TOTAL COUNT 0.038 10^3/uL
[2022-10-01 18:44] LABS: ALBUMIN,BODY FLUID 0.5 G/DL; GLUCOSE,BODY FLUID 107 MG/DL
[2022-10-01 18:47] LABS: LDH,BODY FLUID 90 U/L
[2022-10-01 18:57] LABS: BODY FLUID APPEARENCE CLEAR; BODY FLUID COLOR PALE YELLOW
[2022-10-01 18:58] LABS: BODY FLUID SOURCE PERITON
[2022-10-01] MEDS: cefTRIAXone INJ 2,000 MG in NS (IVPB) 50 ML IV SCH (21:30)
[2022-10-01] MEDS: MELATONIN 3 MG TABLET PO SCH (21:30)
[2022-10-01 22:32] LABS: HEPATITIS C ANTIBODY C Reactive (Non-Reactive)
[2022-10-02] VITALS: BP 100/55
[2022-10-02 03:45] VITALS: BP 101/54
[2022-10-02 05:04] LABS: CALCIUM 7.3 MG/DL (8.5-10.1); CREATININE SERUM 0.95 MG/DL (0.60-1.30)
[2022-10-02] MEDS: CATHETER FLUSH 10 ML SYR IVP SCH ×3 (05:48→21:01)
[2022-10-02 08:00] VITALS: BP 112/66
[2022-10-02 08:58] LABS: HEMATOCRIT 29 % (40-54); MEAN CORPUSCULAR HEMOGLOBIN 36 pg (25-34); MEAN CORPUSCULAR HGB CONC 34 g/dL (32-36); MEAN CORPUSCULAR VOLUME 104 fL (80-99); MEAN PLATELET VOLUME 12.3 fL (9.0-12.2); PLATELET COUNT 85 10^3/uL (130-400); WHITE BLOOD COUNT 4.6 10^3/uL (4.3-11.0)
[2022-10-02 09:11] LABS: ALBUMIN 1.7 GM/DL (3.2-4.5); BILIRUBIN,INDIRECT 0.3 MG/DL; BILIRUBIN,TOTAL 1.3 MG/DL (0.1-1.0); TOTAL PROTEIN 6.2 GM/DL (6.4-8.2)
--- NOTE | 2022-10-02 09:11 | Progress Note - Cardiology ---
Cardiology SOAP Progress Note Subjective: Gen malaise and weakness No focal weakness Abd discomfort Abd discomfort and a feeling of shortness of breath when eating Good appetite No n/v/d Upper chest and bilat shoulder and upper back and mid-back discomfort as before Objective: I&O/Vital Signs 10/02/22 10/02/22 10/02/22 10/02/22 00:00 01:00 03:45 07:08 Temp 36.5 36.5 Pulse 67 63 66 72 Resp 16 16 B/P (MAP) 100/55 (70) 101/54 (70) Pulse Ox 92 94 O2 Delivery Room Air Room Air 10/02/22 08:00 Temp 36.6 Pulse 68 Resp 14 B/P (MAP) 112/66 (81) Pulse Ox 95 O2 Delivery Room Air 10/02/22 00:00 Intake Total 2000 ml Balance 2000 ml Weight (Pounds): 160 Weight (Ounces): 0.0 Weight (Calculated Kilograms): 72.332988 Constitutional: AAO x 3, well-developed, well-nourished Respiratory: No accessory muscle use, No respiratory distress; chest expansion is symmetric, chest is bilaterally symmetric, other (diminished bases bilat) Cardiovascular: regular rate-rhythm; No JVD; S1 and S2 Gastrointestional: No tender; distended; No guarding; audible bowel sounds Extremities: no lower extremity edema bilateral Neurologic/Psychiatric: other (moves all limbs equally) Skin: No rash on exposed areas, No ulcerations on exposed areas Results/Procedures: Labs Laboratory Tests 10/01/22 18:00: Body Fluid Source PERITON, Body Fluid Color PALE YELLOW, Body Fluid Appearance CLEAR, Body Fluid WBC 0.038, Body Fluid RBC 0.001, Body Fl Polynuclear WBCs (%)(Auto) 10.5, Body Fluid Mononuclear Cells % Auto 89.5, Body Fluid Slide Review Yes, Body Fluid Glucose 107, Body Fluid Total Protein 1.0, Body Fluid Albumin 0.5, Body Fluid Lactate Dehydrogenase 90 10/02/22 04:29: White Blood Count 4.6, Red Blood Count 2.81L, Hemoglobin 10.0L, Hematocrit 29L, Mean Corpuscular Volume 104H, Mean Corpuscular Hemoglobin 36H, Mean Corpuscular Hemoglobin Concent 34, Red Cell Distribution Width 15.5H, Platelet Count 85L, Mean Platelet Volume 12.3H, Sodium Level 132L, Potassium Level 4.0, Chloride Level 107, Carbon Dioxide Level 23, Anion Gap 2L, Blood Urea Nitrogen 14, Creatinine 0.95, Estimat Glomerular Filtration Rate 86, BUN/Creatinine Ratio 15, Glucose Level 123H, Calcium Level 7.3L Laboratory Tests 09/30/22 16:25 10/01/22 04:00 10/02/22 04:29 A/P: Assessment: Abd pain and distention due to ascites - s/p paracentesis on 10/01/22 Pancytopenia of undetermined etiology - managed by the [facility] Liver cirrhosis, by history H/o Hep C that has been treated, per his report Minimal troponin elevation likely due to type 2 [place] due to uncontrolled hype rtension - no ECG evidence of ac [place] Severe hypertension - now controlled Hyponatremia, hypoalbuminemia, and anemia of undetermined etiology - managed by the [facility] Plan: * Continue Beta-michael for bp control * Due to thrombocytopenia, does not appear suitable for antiplatelet agents * Monitor labs YVONNE MOSQUERA MD [facility] Oct 02, 2022 09:11
[2022-10-02] MEDS: morphine INJ 4 MG/ML 1 ML (VIAL/SYRINGE) IV PRN (09:38)
[2022-10-02] MEDS: SPIRONOLACTONE 100 MG (ALDACTONE) TABLET PO SCH (09:38)
[2022-10-02] MEDS: meTOproloL SUCCINATE 50 MG (TOPROL XL) TAB PO SCH (09:38)
[2022-10-02] MEDS: FUROSEMIDE 40 MG (LASIX) TAB PO SCH (09:39)
--- NOTE | 2022-10-02 10:53 | Progress Note ---
Subjective Subjective/Events-last exam Pt states he is feeling similar, slightly better. He thinks he needs some more rest and strengthening still. He is hopeful that the water pills will continue to decrease his ascites, but thinks he may want to have repeat paracentesis to try to drain more fluid. Focused Exam Lactate Level 09/30/22 20:39: Lactic Acid Level 1.66 Objective Exam Last Set of Vital Signs Vital Signs Date Time Temp Pulse Resp B/P (MAP) Pulse Ox O2 Delivery O2 Flow Rate FiO2 10/02/22 08:00 36.6 68 14 112/66 (81) 95 Room Air 10/01/22 09:45 0.00 09/30/22 19:24 21 Capillary Refill : Less Than 3 Seconds I&O Intake and Output 10/02/22 00:00 Intake Total 2250 ml Balance 2250 ml Intake Oral 2200 ml IV Total 50 ml # Voids 11 # Bowel Movements 6 General: Alert, No Acute Distress Lungs: Clear to Auscultation, Normal Air Movement Heart: Regular Rate, No Murmurs Abdomen: Normal Bowel Sounds, Other (moderate distension, minimal ttp) Neuro: Normal Speech Psych/Mental Status: Mood NL Results/Procedures Lab Laboratory Tests 10/01/22 18:00: Body Fluid Source [place], Body Fluid Color PALE YELLOW, Body Fluid Appearance CLEAR, Body Fluid WBC 0.038, Body Fluid RBC 0.001, Body Fl Polynuclear WBCs (%)(Auto) 10.5, Body Fluid Mononuclear Cells % Auto 89.5, Body Fluid Slide Review Yes, Body Fluid Glucose 107, Body Fluid Total Protein 1.0, Body Fluid Albumin 0.5, Body Fluid Lactate Dehydrogenase 90 10/02/22 04:29: White Blood Count 4.6, Red Blood Count 2.81L, Hemoglobin 10.0L, Hematocrit 29L, Mean Corpuscular Volume 104H, Mean Corpuscular Hemoglobin 36H, Mean Corpuscular Hemoglobin Concent 34, Red Cell Distribution Width 15.5H, Platelet Count 85L, Mean Platelet Volume 12.3H, Sodium Level 132L, Potassium Level 4.0, Chloride Level 107, Carbon Dioxide Level 23, Anion Gap 2L, Blood Urea Nitrogen 14, C reatinine 0.95, Estimat Glomerular Filtration Rate 86, BUN/Creatinine Ratio 15, Glucose Level 123H, Calcium Level 7.3L, Total Bilirubin 1.3H, Direct Bilirubin 1.0H, Indirect Bilirubin 0.3, Aspartate Amino Transf (AST/SGOT) 72H, Alanine Aminotransferase (ALT/SGPT) 40, Alkaline Phosphatase 169H, Total Protein 6.2L, Albumin 1.7L Radiology 09/30/22 CT abd/pelvis: IMPRESSION: 1. Large volume of abdominal and pelvic ascites without findings of free air. 2. Cirrhosis with recanalized umbilical vein and marked gastroesophageal varices. No current active contrast extravasation evident. 3. Small right and trace left pleural effusion with right lower lobe consolidation that may reflect compressive atelectasis or a developing pneum onia. 4. No findings of bowel obstruction, biliary dilatation or hydronephrosis. 5. Advanced lower thoracic and lumbar degenerative disc disease. As these features were also present in 2021, this appears to be degenerative rather than related to a discitis. 09/30/22 CXR: IMPRESSION: 1. Nonspecific bibasilar airspace consolidation which may relate to pleural effusion, infiltrate, and/or atelectasis. 2. Elevation of the right hemidiaphragm which is an interval change since the prior study. Assessment/Plan Assessment/Plan (1) Ascites Status: Acute Assessment & Plan: New onset, concerning for SBP given general tenderness. Came to bedside with plan to do paracentesis, he declines at this time and requests to have done in the morning. Discussed that every hour of delay can increase risk of serious life threatening outcome, but he states he needs time to mentally prepare. Will start ceftriaxone 2 grams q24 empirically. 10/01- pt declines paracentesis this am, will check this afternoon 10/02- paracentesis done 10/01 pm, diagnostic, unfortunately therapeutic unable to be completed due to loss of positioning of catheter. Started on furosemide and spironolactone for chronic medical management of ascites. SAAG consistent with portal hypertension. PMN 4 per microliter, not consistent with SBP. Qualifiers: Qualified Codes: R18.8 - Other ascites (2) Elevated liver enzymes Status: Chronic Assessment & Plan: Chronic intermittent, suspect related to underlying liver disease. Monitor. (3) Abdominal pain Status: Acute Assessment & Plan: Possible SBP as above. Lipase nml. CT abdomen with esophageal varices and ascites, no other acute findings. Qualifiers: Qualified Codes: R10.84 - Generalized abdominal pain (4) Chest pain Status: Acute Assessment & Plan: With slightly elevated troponin, appreciate Cardiology recommendations. Repeat down slightly. (5) Elevated troponin Status: Acute (6) Esophageal varices Status: Chronic Assessment & Plan: No evidence of active bleeding at this time, monitor closely. Qualifiers: Qualified Codes: I85.00 - Esophageal varices without bleeding (7) Hypertension Status: Chronic Assessment & Plan: Not on home meds currently, previously on amlodipine. Per clinic chart had angioedema with lisinopril. Received metoprolol in ER and BP has decreased markedly, will hold amlodipine. Qualifiers: Qualified Codes: I10 - Essential (primary) hypertension (8) Pain, dental Status: Acute Assessment & Plan: Requesting treatment inpatient, has appt with [email or web address] tomorrow for procedure, discussed we will have to reschedule his outpatient care. (9) Liver cirrhosis Status: Chronic Assessment & Plan: Pt denies previous diagnosis, but does have history of treated Hep C. Repeat hep panel and hep C viral load pending. Qualifiers: Qualified Codes: K74.60 - Unspecified cirrhosis of liver; R18.8 - Other ascites (10) Pancytopenia Status: Acute Assessment & Plan: Suspect secondary to cirrhosis. (11) History of hepatitis C Status: Chronic (12) DVT prophylaxis Status: Acute Assessment & Plan: Hold enoxaparin for now with anemia and thrombocytopenia and need for anti-platelet for CAD concerns. SCDs. TITUS MANNING MD Oct 02, 2022 10:53
[2022-10-02 12:00] VITALS: BP 106/90
[2022-10-02 17:04] VITALS: BP 106/91
[2022-10-02 20:00] VITALS: BP 126/67
[2022-10-02] MEDS: MELATONIN 3 MG TABLET PO SCH (20:59)
[2022-10-02] MEDS: cefTRIAXone INJ 2,000 MG in NS (IVPB) 50 ML IV SCH (21:00)
[2022-10-03 00:45] VITALS: BP 106/62
[2022-10-03 04:00] VITALS: BP 118/84
[2022-10-03] MEDS: CATHETER FLUSH 10 ML SYR IVP SCH ×3 (05:32→22:00)
[2022-10-03 07:38] VITALS: BP 110/76
[2022-10-03] MEDS: SPIRONOLACTONE 100 MG (ALDACTONE) TABLET PO SCH (08:37)
[2022-10-03] MEDS: meTOproloL SUCCINATE 50 MG (TOPROL XL) TAB PO SCH (08:37)
[2022-10-03] MEDS: FUROSEMIDE 40 MG (LASIX) TAB PO SCH (08:37)
[2022-10-03 09:53] LABS: HEMOGLOBIN 11.1 g/dL (13.3-17.7); MEAN PLATELET VOLUME 11.2 fL (9.0-12.2); WHITE BLOOD COUNT 5.2 10^3/uL (4.3-11.0)
[2022-10-03 10:03] LABS: ALBUMIN 1.9 GM/DL (3.2-4.5)
[2022-10-03 10:04] LABS: POTASSIUM 4.4 MMOL/L (3.6-5.0)
[2022-10-03 10:05] LABS: CALCIUM 7.5 MG/DL (8.5-10.1)
[2022-10-03 10:08] LABS: BILIRUBIN,TOTAL 1.4 MG/DL (0.1-1.0)
[2022-10-03 10:10] LABS: CREATININE SERUM 0.86 MG/DL (0.60-1.30)
[2022-10-03] MEDS: morphine INJ 4 MG/ML 1 ML (VIAL/SYRINGE) IV PRN (11:20)
[2022-10-03 12:00] VITALS: BP 122/84
--- NOTE | 2022-10-03 12:31 | Progress Note ---
Subjective Subjective/Events-last exam Pt seen at 0830 and stated he was doing okay. He did not want to have labs drawn today but said he would if I needed them. He feels his abdomen has gone down a little and he is okay with continuing oral medications. He would like something stronger to go home with for his back pain, but on discussion since he cannot use NSAID due to liver disease and he says gabapentin doesn't help him, nor does he want another medication like it, he says he wants something "pure". When discussing risks of morphine class medications he says he doesn't want something that strong, just hydrocodone. Focused Exam Lactate Level 09/30/22 20:39: Lactic Acid Level 1.66 Objective Exam Last Set of Vital Signs Vital Signs Date Time Temp Pulse Resp B/P (MAP) Pulse Ox O2 Delivery O2 Flow Rate FiO2 10/03/22 10:17 95 Room Air 10/03/22 07:38 37.2 79 16 110/76 (87) 10/02/22 13:43 0.00 09/30/22 19:24 21 Capillary Refill : Less Than 3 Seconds I&O Intake and Output 10/02/22 23:59 Intake Total 1500 ml Balance 1500 ml Intake Oral 1450 ml IV Total 50 ml # Voids 10 # Bowel Movements 3 General: Alert, No Acute Distress Lungs: Clear to Auscultation, Normal Air Movement Heart: Regular Rate, No Murmurs Abdomen: Normal Bowel Sounds, Other (distended, nontender) Extremities: No Edema Neuro: Normal Speech Psych/Mental Status: Mood NL Results/Procedures Lab Laboratory Tests 10/03/22 09:44: White Blood Count 5.2, Red Blood Count 3.10L, Hemoglobin 11.1L, Hematocrit 32L, Mean Corpuscular Volume 102H, Mean Corpuscular Hemoglobin 36H, Mean Corpuscular Hemoglobin Concent 35, Red Cell Distribution Width 15.3H, Platelet Count 90L, Mean Platelet Volume 11.2, Percent Immature Platelet Fraction 5.9, Sodium Level 134L, Potassium Level 4.4, Chloride Level 106, Carbon Dioxide Level 24, Anion Gap 4L, Blood Urea Nitrogen 13, Creatinine 0.86, Estimat Glomerular Filtration Rate 93, BUN/Creatinine Ratio 15, Glucose Level 98, Calcium Level 7.5L, Corrected Calcium 9.2, Total Bilirubin 1.4H, Aspartate Amino Transf (AST/SGOT) 75H, Alanine Aminotransferase (ALT/SGPT) 38, Alkaline Phosphatase 190H, Total Protein 7.0, Albumin 1.9L Microbiology 10/01/22 Gram Stain - Final, Resulted 10/01/22 Body Fluid Culture - Preliminary, Resulted No growth Radiology 09/30/22 CT abd/pelvis: IMPRESSION: 1. Large volume of abdominal and pelvic ascites without findings of free air. 2. Cirrhosis with recanalized umbilical vein and marked gastroesophageal varices. No current active contrast extravasation evident. 3. Small right and trace left pleural effusion with right lower lobe consolidation that may reflect compressive atelectasis or a developing pneumonia. 4. No findings of bowel obstruction, biliary dilatation or hydronephrosis. 5. Advanced lower thoracic and lumbar degenerative disc disease. As these features were also present in 2021, this appears to be degenerative rather than related to a discitis. 09/30/22 CXR: IMPRESSION: 1. Nonspecific bibasilar airspace consolidation which may relate to pleural effusion, infiltrate, and/or atelectasis. 2. Elevation of the right hemidiaphragm which is an interval change since the prior study. Assessment/Plan Assessment/Plan (1) Ascites Status: Acute Assessment & Plan: New onset, concerning for SBP given general tenderness. Came to bedside with plan to do paracentesis, he declines at this time and requests to have done in the morning. Discussed that every hour of delay can increase risk of serious life threatening outcome, but he states he needs time to mentally prepare. Will start ceftriaxone 2 grams q24 empirically. 10/01- pt declines paracentesis this am, will check this afternoon 10/02- paracentesis done 10/01 pm, diagnostic, unfortunately therapeutic unable to be completed due to loss of positioning of catheter. Started on furosemide and spironolactone for chronic medical management of ascites. SAAG consistent with portal hypertension. PMN 4 per microliter, not consistent with SBP. Qualifiers: Qualified Codes: R18.8 - Other ascites (2) Elevated liver enzymes Status: Chronic Assessment & Plan: Chronic intermittent, suspect related to underlying liver disease. Monitor. (3) Abdominal pain Status: Acute Assessment & Plan: Possible SBP as above. Lipase nml. CT abdomen with esophageal varices and ascites, no other acute findings. Qualifiers: Qualified Codes: R10.84 - Generalized abdominal pain (4) Chest pain Status: Acute Assessment & Plan: With slightly elevated troponin, appreciate Cardiology recommendations. Repeat down slightly. 10/03 after my exam this morning we were planning d/c, however he reported to Cardiology recurrent chest pain, now plan for stress test tomorrow (5) Elevated troponin Status: Acute (6) Esophageal varices Status: Chronic Assessment & Plan: No evidence of active bleeding at this time, monitor closely. Qualifiers: Qualified Codes: I85.00 - Esophageal varices without bleeding (7) Hypertension Status: Chronic Assessment & Plan: Not on home meds currently, previously on amlodipine. Per clinic chart had angioedema with lisinopril. Received metoprolol in ER and BP has decreased markedly, will hold amlodipine. Qualifiers: Qualified Codes: I10 - Essential (primary) hypertension (8) Pain, dental Status: Acute Assessment & Plan: Requesting treatment inpatient, has appt with [facility] tomorrow for procedure, discussed we will have to reschedule his outpatient care. (9) Liver cirrhosis Status: Chronic Assessment & Plan: Pt denies previous diagnosis, but does have history of treated Hep C. Repeat hep panel and hep C viral load done, unfortunately hep C virus is present, discussed results on 10/03 and will follow up outpatient for recommendations regarding repeat treatment. Qualifiers: Qualified Codes: K74.60 - Unspecified cirrhosis of liver; R18.8 - Other ascites (10) Pancytopenia Status: Acute Assessment & Plan: Suspect secondary to cirrhosis. (11) History of hepatitis C Status: Chronic (12) DVT prophylaxis Status: Acute Assessment & Plan: Hold enoxaparin for now with anemia and thrombocytopenia and need for anti-platelet for CAD concerns. SCDs. TITUS MANNING MD Oct 03, 2022 12:31
--- NOTE | 2022-10-03 13:34 | Progress Note - Cardiology ---
Cardiology SOAP Progress Note Subjective: Notes an episode of chest heaviness lasting about an hour last night. First time ever experience that Chronic, bilateral shoulder and upper, outer chest discomfort as before (contin uous, unchanged in the recent past) Gen malaise No focal weakness Feeling of abdominal distention No n/v/d No shortness of breath at rest Objective: I&O/Vital Signs 10/03/22 10/03/22 10/03/22 10/03/22 04:00 07:33 07:38 08:00 Temp 36.6 37.2 Pulse 73 79 79 Resp 20 16 B/P (MAP) 118/84 (95) 110/76 (87) Pulse Ox 100 97 97 O2 Delivery Room Air Room Air Room Air 10/03/22 10:17 Pulse Ox 95 O2 Delivery Room Air 10/03/22 00:00 Intake Total 1100 ml Balance 1100 ml Weight (Pounds): 160 Weight (Ounces): 0.0 Weight (Calculated Kilograms): 72.075771 Constitutional: AAO x 3, well-developed, well-nourished Respiratory: No accessory muscle use, No respiratory distress; chest expansion is symmetric, chest is bilaterally symmetric, other (diminished bases bilat) Cardiovascular: regular rate-rhythm; No JVD; S1 and S2 Gastrointestional: No tender; distended; No guarding; audible bowel sounds Extremities: no lower extremity edema bilateral Neurologic/Psychiatric: other (moves all limbs equally) Skin: No rash on exposed areas, No ulcerations on exposed areas Results/Procedures: Labs Laboratory Tests 10/03/22 09:44: White Blood Count 5.2, Red Blood Count 3.10L, Hemoglobin 11.1L, Hematocrit 32L, Mean Corpuscular Volume 102H, Mean Corpuscular Hemoglobin 36H, Mean Corpuscular Hemoglobin Concent 35, Red Cell Distribution Width 15.3H, Platelet Count 90L, Mean Platelet Volume 11.2, Percent Immature Platelet Fraction 5.9, Sodium Level 134L, Potassium Level 4.4, Chloride Level 106, Carbon Dioxide Level 24, Anion Gap 4L, Blood Urea Nitrogen 13, Creatinine 0.86, Estimat Glomerular Filtration Rate 93, BUN/Creatinine Ratio 15, Glucose Level 98, Calcium Level 7.5L, Corrected Calcium 9.2, Total Bilirubin 1.4H, Aspartate Amino Transf (AST/SGOT) 75H, Alanine Aminotransferase (ALT/SGPT) 38, Alkaline Phosphatase 190H, Total Protein 7.0, Albumin 1.9L Microbiology 10/01/22 Gram Stain - Final, Resulted 10/01/22 Body Fluid Culture - Preliminary, Resulted No growth A/P: Assessment: Chest discomfort on 10/02/22, etiology undetermined Abd pain and distention due to ascites - s/p paracentesis on 10/01/22 Pancytopenia of undetermined etiology, worsening of thrombocytopenia since admission - managed by the [facility] Liver cirrhosis, by history Hep C that has been treated, per his report Minimal troponin elevation likely due to type 2 IN due to uncontrolled hyperte nsion - no ECG evidence of ac IN Severe hypertension - now controlled Hyponatremia, hypoalbuminemia, and anemia of undetermined etiology - managed by the [facility] [place], [place] Plan: * MPI to eval for cor ischemia * Continue Beta-michael for bp control * Due to thrombocytopenia, does not appear suitable for antiplatelet agents (falling thrombocyte count) * Monitor labs * I called Dr Vance this am and discussed the case with her YVONNE MOSQUERA MD FACP FACC CCDS Oct 03, 2022 13:34
[2022-10-03 16:00] VITALS: BP 116/72
[2022-10-03 20:00] VITALS: BP 113/74
[2022-10-03] MEDS: MELATONIN 3 MG TABLET PO SCH (20:32)
[2022-10-03] MEDS: cefTRIAXone INJ 2,000 MG in NS (IVPB) 50 ML IV SCH (22:18)
[2022-10-04 00:17] VITALS: BP 116/66
[2022-10-04 01:16] VITALS: BP 116/66
[2022-10-04 03:52] VITALS: BP 110/80
[2022-10-04] MEDS: CATHETER FLUSH 10 ML SYR IVP SCH (05:23)
[2022-10-04 05:43] LABS: HEMOGLOBIN 10.5 g/dL (13.3-17.7); MEAN PLATELET VOLUME 11.6 fL (9.0-12.2); WHITE BLOOD COUNT 5.3 10^3/uL (4.3-11.0)
[2022-10-04 08:00] VITALS: BP 132/84
[2022-10-04 08:08] LABS: ALBUMIN 1.8 GM/DL (3.2-4.5)
[2022-10-04 08:09] LABS: POTASSIUM 4.2 MMOL/L (3.6-5.0)
[2022-10-04 08:10] LABS: CALCIUM 7.3 MG/DL (8.5-10.1)
[2022-10-04 08:11] LABS: TOTAL PROTEIN 6.7 GM/DL (6.4-8.2)
[2022-10-04 08:13] LABS: BILIRUBIN,TOTAL 1.4 MG/DL (0.1-1.0)
[2022-10-04 08:15] LABS: CREATININE SERUM 0.83 MG/DL (0.60-1.30)
[2022-10-04] MEDS ORDERED: REGADENOSON 0.4 MG/5 ML SYR (LEXISCAN) IV ONE ×2 (08:15→09:15)
[2022-10-04 08:51] VITALS: BP 135/81
--- NOTE | 2022-10-04 09:09 | Progress Note - Cardiology ---
Cardiology SOAP Progress Note Subjective: C/O abdominal pain this morning C/O diarrhea this morning No c/o CP or SOB Objective: I&O/Vital Signs 10/04/22 10/04/22 10/04/22 10/04/22 03:52 08:00 08:00 08:51 Temp 37.2 37.9 Pulse 65 69 66 Resp 16 B/P (MAP) 110/80 (90) 132/84 (100) 135/81 (99) Pulse Ox 96 97 97 O2 Delivery Room Air Room Air Room Air 10/04/22 12:00 Temp 36.5 Pulse 64 Resp 16 B/P (MAP) 139/73 (95) Pulse Ox 99 O2 Delivery Room Air 10/04/22 00:00 Intake Total 990 ml Balance 990 ml Weight (Pounds): 160 Weight (Ounces): 0.0 Weight (Calculated Kilograms): 72.328344 Constitutional: AAO x 3, well-developed, well-nourished Respiratory: No accessory muscle use, No respiratory distress; chest expansion is symmetric, chest is bilaterally symmetric, other (diminished bases bilat) Cardiovascular: regular rate-rhythm; No JVD; S1 and S2 Gastrointestional: No tender; distended; No guarding; audible bowel sounds Extremities: no lower extremity edema bilateral Neurologic/Psychiatric: other (moves all limbs equally) Skin: No rash on exposed areas, No ulcerations on exposed areas Results/Procedures: Labs Laboratory Tests 10/04/22 04:35: White Blood Count 5.3, Red Blood Count 3.00L, Hemoglobin 10.5L, Hematocrit 30L, Mean Corpuscular Volume 101H, Mean Corpuscular Hemoglobin 35H, Mean Corpuscular Hemoglobin Concent 35, Red Cell Distribution Width 15.2H, Platelet Count 89L, Mean Platelet Volume 11.6, Percent Immature Platelet Fraction 7.4, Sodium Level 134L, Potassium Level 4.2, Chloride Level 105, Carbon Dioxide Level 23, Anion Gap 6, Blood Urea Nitrogen 13, Creatinine 0.83, Estimat Glomerular Filtration Rate 94, BUN/Creatinine Ratio 16, Glucose Level 77, Calcium Level 7.3L, Corrected Calcium 9.1, Total Bilirubin 1.4H, Aspartate Amino Transf (AST/SGOT) 71H, Alanine Aminotransferase (ALT/SGPT) 34, Alkaline Phosphatase 175H, Total Protein 6.7, Albumin 1.8L Microbiology 10/01/22 Gram Stain - Final, Complete 10/01/22 Body Fluid Culture - Final, Complete No growth A/P: Assessment: Chest discomfort on 10/02/22, etiology undetermined Abd pain and distention due to ascites - s/p paracentesis on 10/01/22 Pancytopenia of undetermined etiology, worsening of thrombocytopenia since a dmission - managed by the [facility] Liver cirrhosis, by history Hep C that has been treated, per his report Minimal troponin elevation likely due to type 2 NC due to uncontrolled hypertension - no ECG evidence of ac NC Severe hypertension - now controlled Hyponatremia, hypoalbuminemia, and anemia of undetermined etiology - managed by the [facility] [place] Plan: * MPI to eval for cor ischemia - pending * Continue Beta-michael for bp control * Due to thrombocytopenia, does not appear suitable for antiplatelet agents (falling thrombocyte count) * Monitor labs VALDEMAR PATTERSON Oct 04, 2022 09:09
[2022-10-04] MEDS: meTOproloL SUCCINATE 50 MG (TOPROL XL) TAB PO SCH (10:10)
[2022-10-04] MEDS: SPIRONOLACTONE 100 MG (ALDACTONE) TABLET PO SCH (10:10)
[2022-10-04] MEDS: FUROSEMIDE 40 MG (LASIX) TAB PO SCH (10:10)
[2022-10-04 12:00] VITALS: BP 139/73
[2022-10-04] MEDS ORDERED: FURO40TA4 PO (12:04)
[2022-10-04] MEDS ORDERED: SPIR100T4 PO (12:04)
[2022-10-04] MEDS ORDERED: MTP25TSR PO (12:04)
[2022-10-04] MEDS ORDERED: [UNRECOGNIZED DRUG - CODE] PO (12:09)
--- NOTE | 2022-10-04 12:15 | Discharge Summary ---
Discharge Summary Hospital Course Problems/Diagnosis: (1) Ascites Status: Acute Assessment & Plan: New onset, concerning for SBP given general tenderness. Came to bedside with plan to do paracentesis, he declines at this time and requests to have done in the morning. Discussed that every hour of delay can increase risk of serious life threatening outcome, but he states he needs time to mentally prepare. Will start ceftriaxone 2 grams q24 empirically. 10/01- pt declines paracentesis this am, will check this afternoon 10/02- paracentesis done 10/01 pm, diagnostic, unfortunately therapeutic unable to be completed due to loss of positioning of catheter. Started on furosemide and spironolactone for chronic medical management of ascites. SAAG consistent with portal hypertension. PMN 4 per microliter, not consistent with SBP. 10/03- reporting improvement with diuretics. 10/04- plan to d/c on spironolactone and furosemide, discussed can do repeat paracentesis outpatient if needed- can be scheduled in same day surgery with me as needed. Qualifiers: Qualified Codes: R18.8 - Other ascites (2) Elevated liver enzymes Status: Chronic Assessment & Plan: Chronic intermittent, suspect related to underlying liver disease. Monitor. (3) Abdominal pain Status: Acute Assessment & Plan: Possible SBP as above. Lipase nml. CT abdomen with esophageal varices and ascites, no other acute findings. Qualifiers: Qualified Codes: R10.84 - Generalized abdominal pain (4) Chest pain Status: Acute Assessment & Plan: With slightly elevated troponin, appreciate Cardiology recommendations. Repeat down slightly. 10/04 stress test okay. (5) Elevated troponin Status: Acute Assessment & Plan: Trended down, stress test okay. (6) Esophageal varices Status: Chronic Assessment & Plan: No evidence of active bleeding at this time, monitor closely. Qualifiers: Qualified Codes: I85.00 - Esophageal varices without bleeding (7) Hypertension Status: Chronic Assessment & Plan: Not on home meds currently, previously on amlodipine. Per clinic chart had angioedema with lisinopril. Received metoprolol in ER and BP decreased markedly, held amlodipine. On discharge continued lower dose m etoprolol for BP control per Cardiology recommendation. Qualifiers: Qualified Codes: I10 - Essential (primary) hypertension (8) Pain, dental Status: Acute Assessment & Plan: On admit- Requesting treatment inpatient, has appt with [facility] tomorrow for procedure, discussed we will have to reschedule his outpatient care. Pt stated he has rescheduled. (9) Liver cirrhosis Status: Chronic Assessment & Plan: Pt denies previous diagnosis, but does have history of treated Hep C. Repeat hep panel and hep C viral load done, unfortunately hep C virus is present, discussed results on 10/03 and will follow up outpatient for recommendations regarding repeat treatment. Qualifiers: Qualified Codes: K74.60 - Unspecified cirrhosis of liver; R18.8 - Other ascites (10) Pancytopenia Status: Chronic Assessment & Plan: Suspect secondary to cirrhosis. White blood cell count normal at d/c, hemoglobin and platelets remained stable but low. (11) History of hepatitis C Status: Chronic Hospital Course Date of Admission: Sep 30, 2022 at 18:41 Admission Diagnosis : [facility] Date of Discharge: 10/04/22 Discharge Diagnosis: See problem list Hospital Course: See problem list Labs and Pending Lab Test: Laboratory Tests 10/04/22 04:35: White Blood Count 5.3, Red Blood Count 3.00L, Hemoglobin 10.5L, Hematocrit 30L, Mean Corpuscular Volume 101H, Mean Corpuscular Hemoglobin 35H, Mean Corpuscular Hemoglobin Concent 35, Red Cell Distribution Width 15.2H, Platelet Count 89L, Mean Platelet Volume 11.6, Percent Immature Platelet Fraction 7.4, Sodium Level 134L, Potassium Level 4.2, Chloride Level 105, Carbon Dioxide Level 23, Anion Gap 6, Blood Urea Nitrogen 13, Creatinine 0.83, Estimat Glomerular Filtration Rate 94, BUN/Creatinine Ratio 16, Glucose Level 77, Calcium Level 7.3L, Corrected Calcium 9.1, Total Bilirubin 1.4H, Aspartate Amino Transf (AST/SGOT) 71H, Alanine Aminotransferase (ALT/SGPT) 34, Alkaline Phosphatase 175H, Total Protein 6.7, Albumin 1.8L Microbiology 10/01/22 Gram Stain - Final, Complete 10/01/22 Body Fluid Culture - Final, Complete No growth Home Meds Active Ensure High Protein (Lactose-Reduced Food) 237 Ml Liquid 237 Ml PO DAILY 30 Days Furosemide 40 Mg Tablet 40 Mg PO DAILY Spironolactone 100 Mg Tablet 100 Mg PO DAILY Metoprolol Succinate 25 Mg Tab.er.24h 25 Mg PO DAILY Reported Alprazolam 1 Mg Tablet 1 Mg PO DAILY PRN Ventolin Hfa (Albuterol Sulfate) 1 Puff Puff 2 Puff INH Q4H PRN Assessment/Pt DC Instructions Follow up with Dr. Arthur within a week. Get labs checked on Friday to ensure potassium stability with water pills. If repeat paracentesis is needed, contact Dr. Vance to schedule at same day surgery. Discharge Diet: Low Sodium Diet Activity as Tolerated: Yes Discharge Physical Examination Allergies: Coded Allergies: lisinopril (Verified Allergy, Severe, Angioedema, 10/01/22) ibuprofen (Verified Allergy, Unknown, 07/03/21) acetaminophen (Unverified Adverse Reaction, Mild, GI BLEED, N/V, 10/14/10) Sulfa (Sulfonamide Antibiotics) (Unverified Adverse Reaction, Unknown, GI BLEED, N/V, 04/08/15) aspirin (Unverified Adverse Reaction, Unknown, GI BLEED, N/V, 04/08/15) General Appearance: No Apparent Distress Respiratory: Lungs Clear, Normal Breath Sounds Cardiovascular: Regular Rate, Rhythm, No Murmur Gastrointestinal: Normal Bowel Sounds, Other (mild distension, minimal ttp) Extremity: No Pedal Edema Skin: Warm/Dry Neurologic/Psychiatric: Alert, Normal Mood/Affect Copy Copies To 1: LUDIN ARTHUR BETHANY N MD Oct 04, 2022 12:14
--- NOTE | 2022-10-04 12:32 | Progress Note - Cardiology ---
Cardiology SOAP Progress Note Subjective: Continuing mid and upper back discomfort, mild Continuing bilateral shoulder discomfort, mild Continuing abd discomfort, mild No chest discomfort No shortness of breath at rest No n/v/d No focal weakness No leg swelling No palp Objective: I&O/Vital Signs 10/04/22 10/04/22 10/04/22 10/04/22 01:16 01:16 03:52 08:00 Temp 37.4 37.2 Pulse 72 65 65 B/P (MAP) 110/80 (90) Pulse Ox 95 96 97 O2 Delivery Room Air Room Air FiO2 21 10/04/22 10/04/22 10/04/22 08:00 08:51 12:00 Temp 37.9 36.5 Pulse 69 66 64 Resp 16 16 B/P (MAP) 132/84 (100) 135/81 (99) 139/73 (95) Pulse Ox 97 99 O2 Delivery Room Air Room Air 10/04/22 00:00 Intake Total 990 ml Balance 990 ml Weight (Pounds): 160 Weight (Ounces): 0.0 Weight (Calculated Kilograms): 72.597180 Constitutional: AAO x 3, well-developed, well-nourished Respiratory: No accessory muscle use, No respiratory distress; chest expansion is symmetric, chest is bilaterally symmetric, other (diminished bases bilat) Cardiovascular: regular rate-rhythm; No JVD; S1 and S2 Gastrointestional: No tender; distended; No guarding; audible bowel sounds Extremities: no lower extremity edema bilateral Neurologic/Psychiatric: other (moves all limbs equally) Skin: No rash on exposed areas, No ulcerations on exposed areas Results/Procedures: Labs Laboratory Tests 10/04/22 04:35: White Blood Count 5.3, Red Blood Count 3.00L, Hemoglobin 10.5L, Hematocrit 30L, Mean Corpuscular Volume 101H, Mean Corpuscular Hemoglobin 35H, Mean Corpuscular Hemoglobin Concent 35, Red Cell Distribution Width 15.2H, Platelet Count 89L, Mean Platelet Volume 11.6, Percent Immature Platelet Fraction 7.4, Sodium Level 134L, Potassium Level 4.2, Chloride Level 105, Carbon Dioxide Level 23, Anion Gap 6, Blood Urea Nitrogen 13, Creatinine 0.83, Estimat Glomerular Filtration Rate 94, BUN/Creatinine Ratio 16, Glucose Level 77, Calcium Level 7.3L, Corrected Calcium 9.1, Total Bilirubin 1.4H, Aspartate Amino Transf (AST/SGOT) 71H, Alanine Aminotransferase (ALT/SGPT) 34, Alkaline Phosphatase 175H, Total Protein 6.7, Albumin 1.8L Microbiology 10/01/22 Gram Stain - Final, Complete 10/01/22 Body Fluid Culture - Final, Complete No growth Laboratory Tests 10/03/22 09:44 10/04/22 04:35 A/P: Assessment: Chest discomfort on 10/02/22, etiology undetermined - no evidence of significant myocardial ischemia or infraction and normal LVEF on MPI of 10/04/22 Abd pain and distention due to ascites - s/p paracentesis on 10/01/22 Pancytopenia of undetermined etiology, worsening of thrombocytopenia since admission - managed by the [facility] Liver cirrhosis - managed by [facility] Hep C - managed by [facility] Minimal troponin elevation likely due to type 2 RI due to uncontrolled hype rtension - no ECG evidence of ac RI - see MPI of 10/04/22 noted above Severe hypertension - now controlled Hyponatremia, hypoalbuminemia, and anemia of undetermined etiology - managed by the [facility] Plan: * Continue Beta-michael for bp control * Due to thrombocytopenia, does not appear suitable for antiplatelet agents * Monitor labs * Ok to d/c from cardiac standpoint. Outpt cardiac f/u advised * Multiple medical issues being managed by the [place] Bynum MD FACP [facility] Oct 04, 2022 12:32
--- NOTE | 2022-10-04 13:07 | STRESS TEST ---
DATE OF SERVICE: 10/04/2022 RESTING AND POST REGADENOSON TECHNETIUM-99M TETROFOSMIN SPECT CT IMAGING ORDERING PHYSICIAN: Janett Angeles APRN. PRIMARY PHYSICIAN: Dr. Vance. CLINICAL DIAGNOSIS: Chest discomfort. Baseline images were carried out after injection of 10.72 mCi of technetium-99m tetrofosmin. This was followed by 0.4 mg regadenoson and 30.2 mCi of technetium-99m tetrofosmin for stress imaging. The electrocardiogram showed sinus rhythm at baseline. It did not change significantly with the regadenoson infusion. The patient noted some abdominal discomfort during the study. This remained unchanged before, during and after. Overall, he tolerated the procedure well. Review of images at rest and following stress indicates somewhat diminished count uptake in the diaphragmatic wall of the left ventricle, both at rest and following regadenoson infusion. Gated images show normal regional wall motion, including the diaphragmatic wall of the left ventricle. Left ventricular ejection fraction is calculated to be 62%. Left ventricular end-diastolic volume is 62 mL. Diminished count uptake and diaphragmatic wall appears to be due to diaphragmatic attenuation. Left ventricular end diastolic volume is 62 mL and TID is 0.97. CONCLUSIONS: 1. No distinct evidence of any significant myocardial ischemia or infarction. 2. Normal regional wall motion. 3. Normal global left systolic function with a calculated ejection fraction 62%. Job ID: [id number] DocumentID: [id number] Dictated Date: 10/04/2022 10:22:08 [facility] Date: 10/04/2022 12:38:00 Dictated By: YVONNE MOSQUERA MD; DIGNA; FACP; FACC;
== END 2022-10-04 14:14 | disposition home or self-care (01) | DRG 433 ==
LOC: EDUNIT# 16:05 → ER 16:06 → CSD 18:41
PROVIDERS: ADMIT Family Medicine; ATTEND Family Medicine
PROC: 0W9G3ZZ Drainage of Peritoneal Cavity, Percutaneous Approach (ICD-10-PCS; principal; 2022-10-01)
DX: K74.60 Unspecified cirrhosis of liver (principal); D61.818 Other pancytopenia; R18.8 Other ascites; I85.00 Esophageal varices without bleeding; E87.1 Hypo-osmolality and hyponatremia; K76.6 Portal hypertension; J44.9 Chronic obstructive pulmonary disease, unspecified; D69.6 Thrombocytopenia, unspecified; B19.20 Unspecified viral hepatitis C without hepatic coma; E88.09 Other disorders of plasma-protein metabolism, not elsewhere classified; D64.9 Anemia, unspecified; R77.8 Other specified abnormalities of plasma proteins; K08.89 Other specified disorders of teeth and supporting structures
CPT/HCPCS: 36415; 71045; 71260; 74177; 78452; 80048; 80053; 80074; 80076; 81000; 82042; 82150; 82945; 83605; 83615; 83690; 83735; 83880; 84157; 84484; 85007; 85025; 85027; 85610; 85730; 87070; 87205; 87522; 89051; 93005; 93017; 93041; 93306; 94640; 94760; 96374; 96375